=== PATIENT | male | born 1940 | race Hispanic/Latino ===

== ENCOUNTER 2017-03-25 08:21 | Outpatient (CLI) | payer MEDICARE ==
--- NOTE | 2017-03-25 10:10 | PRG ---
DATE OF SERVICE: 03/25/2017 HISTORY: Mr. Alex Lind is a very pleasant 76-year-old gentleman who presents to the [facility] for evaluation of an ulceration of the left anterior lower leg. The patient is presently receivin g treatment with Apligraf. The patient has no complaints today. He denies any fever or chills. PHYSICAL EXAMINATION: VITAL SIGNS: Temperature 98.1, pulse 74, respirations 18, blood pressure 128/35. Accu-Chek 120. EXTREMITIES: The ulceration of the left anterior lower leg measures approximately 3.0 x 2.0 cm. Th e dimensions of the wound at the time of the patient's last visit were approximately 3.0 x 2.2 cm. Granulation tissue is present within the wound margins. No purulent drainage is associated with the wound. No erythema of the skin surrounding the wound is present. No maceration of the skin of the periwound is noted. A dorsalis pedis pulse is easily palpable on the left. No significant edema o f the left foot or lower leg is present on exam today. Apligraf was applied to the wound bed of the ulceration followed by Adaptic touch, a bolster of saline-moistened gauze, dry gauze, Webril, and 3 M Coban 2 layer compression system. Hyperpigmentation of the skin of the left forefoot is present s econdary to hemosiderin deposition. ASSESSMENT AND PLAN: 1. Chronic venous hypertension with ulceration, recurrent. Apligraf was applied to the wound bed o f the ulceration today. I will see Mr. Lind again in 1 week. 2. Lymphedema tarda. 3. Degenerative joint disease. 4. Asbestosis. 5. Congestive heart failure. 6. Anemia. 7. Benign prostatic hypertrophy. 8. Chronic kidney disease stage 3.
[2017-03-25] MEDS ORDERED: Sodium Chloride 0.9% 15 ML NEB ONE (18:52)
== END 2017-03-25 08:22 | disposition home or self-care (01) ==
LOC: WCC 08:21
PROVIDERS: ATTEND Family Medicine
DX: I87.312 Chronic venous hypertension (idiopathic) with ulcer of left lower extremity (principal); I89.0 Lymphedema, not elsewhere classified; M19.90 Unspecified osteoarthritis, unspecified site; I13.0 Hypertensive heart and chronic kidney disease with heart failure and stage 1 through stage 4 chronic kidney disease, or unspecified chronic kidney disease; J61 Pneumoconiosis due to asbestos and other mineral fibers; N18.3 Chronic kidney disease, stage 3 (moderate); D63.1 Anemia in chronic kidney disease; I50.32 Chronic diastolic (congestive) heart failure; N40.0 Benign prostatic hyperplasia without lower urinary tract symptoms
CPT/HCPCS: 15271; 97139; Q4106; A4218

== ENCOUNTER 2017-04-01 09:02 | Outpatient (CLI) | payer MEDICARE ==
--- OUTSIDE RECORDS SUMMARY | 2017-04-01 09:03 | XMS | Clinical Summary ---
:1940 Author Organization [facility] Address [address] [place] [phone] Phone Care Team Providers Name Role Phone , Primary Care Provider Unavailable Allergies Not on File Current Medications Not on file Active Problems Not on file Social History Tobacco Use Types Packs/Day Years Used Date Never Assessed Sex Assigned at Date Recorded Not on file Last Filed Vital Signs Not on file Plan of Treatment Not on file Results Not on filefrom Last 3 Months
--- NOTE | 2017-04-01 10:27 | PRG ---
DATE OF SERVICE: 04/01/2017 HISTORY: Mr. Alex Lind is a very pleasant 76-year-old gentleman who presents to the [facility] for evaluation of an ulceration of the left anterior lower leg. The patient is currently receivin g treatment with Apligraf. The patient has no complaints today. He denies any fever or chills. PHYSICAL EXAMINATION: VITAL SIGNS: Temperature 98.8, pulse 82, respirations 18, blood pressure 113/64. Accu-Chek 93. EXTREMITIES: The ulceration of the left anterior lower leg measures approximately 2.2 x 2.6 cm. Th e dimensions of the wound at the time of the patient's last visit were approximately 3.0 x 2.0 cm. Granulation tissue is present within the wound margins. No purulent drainage is associated with the wound. No erythema of the skin surrounding the wound is present. No maceration of the skin of the periwound is noted. A dorsalis pedis pulse is palpable on the left. No significant edema of the l eft foot or lower leg is present on exam today. Hyperpigmentation of the skin of the left forefoot is present secondary to hemosiderin deposition. ASSESSMENT AND PLAN: 1. Chronic venous hypertension with ulceration, recurrent Adaptic Touch, Webril, and 3M Coban 2 lay er compression system were applied to the ulceration today. I will see Mr. Lind again in one week . At this time, consideration will be given to another placement of Apligraf. 2. Lymphedema tarda. 3. Degenerative joint disease. 4. Asbestosis. 5. Congestive heart failure. 6. Anemia. 7. Benign prostatic hypertrophy. 8. Chronic kidney disease stage 3.
== END 2017-04-01 09:03 | disposition home or self-care (01) ==
LOC: WCC 09:02
PROVIDERS: ATTEND Family Medicine
DX: I87.312 Chronic venous hypertension (idiopathic) with ulcer of left lower extremity (principal); I89.0 Lymphedema, not elsewhere classified; M19.90 Unspecified osteoarthritis, unspecified site; J61 Pneumoconiosis due to asbestos and other mineral fibers; I50.9 Heart failure, unspecified; N40.0 Benign prostatic hyperplasia without lower urinary tract symptoms; N18.3 Chronic kidney disease, stage 3 (moderate); D63.1 Anemia in chronic kidney disease
CPT/HCPCS: 36416; 80048; 80061; 85025; 97602; 36415-59

== ENCOUNTER 2017-04-02 19:17 | Emergency (ER) | payer MEDICARE ==
--- OUTSIDE RECORDS SUMMARY | 2017-04-02 19:19 | XMS | Clinical Summary ---
:1940 Author Organization [facility] Address [address] [place] [phone] Phone Care Team Providers Name Role Phone [...]
== END 2017-04-02 20:51 | disposition home or self-care (01) ==
LOC: ERS 19:17
DX: B37.2 Candidiasis of skin and nail (principal); I11.0 Hypertensive heart disease with heart failure; I50.9 Heart failure, unspecified; F32.9 Major depressive disorder, single episode, unspecified
CPT/HCPCS: 99283

== ENCOUNTER 2017-04-08 09:17 | Outpatient (CLI) | payer MEDICARE ==
--- OUTSIDE RECORDS SUMMARY | 2017-04-08 09:20 | XMS | Clinical Summary ---
:1940 Author Organization [facility] Address [address] [place] [phone] Phone Care Team Providers Name Role Phone [...]
--- NOTE | 2017-04-08 10:28 | PRG ---
DATE OF SERVICE: 04/08/2017 HISTORY: Mr. Alex Lind is a very pleasant 76-year-old gentleman who presents to the [facility] for evaluation of an ulceration of the left anterior lower leg. The patient is presently receivin g treatment with Apligraf. Mr. Lind has no complaints today. He denies any fever or chills. PHYSICAL EXAMINATION: VITAL SIGNS: Temperature 98.1, pulse 67, respirations 18, blood pressure 107/55. Accu-Chek 99. EXTREMITIES: The ulceration of the left anterior lower leg measures approximately 2.5 x 2.3 cm. Th e dimensions of the wound at the time of the patient's last visit were approximately 2.2 x 2.6 cm. Granulation tissue is present within the wound margins. No purulent drainage is associated with the wound. No erythema of the skin surrounding the wound is present. No maceration of the skin of the periwound is noted. A dorsalis pedis pulse is palpable on the left. No significant edema of the l eft foot or lower leg is present on exam today. Hyperpigmentation of the skin of the left forefoot is present secondary to hemosiderin deposition. Apligraf was applied to the wound bed followed by A daptic touch, a bolster of saline-moistened gauze, dry gauze, Webril, and 3M Coban 2 layer compressi on system. ASSESSMENT AND PLAN: 1. Chronic venous hypertension with ulceration. Apligraf was applied to the wound bed of the ulcer ation today. I will see Mr. Lind again in 1 week. 2. Lymphedema tarda. 3. Degenerative joint disease. 4. Asbestosis. 5. Congestive heart failure. 6. Anemia. 7. Benign prostatic hypertrophy. 8. Chronic kidney disease stage 3.
[2017-04-08] MEDS ORDERED: Sodium Chloride 0.9% 15 ML NEB ONE (16:24)
== END 2017-04-08 09:18 | disposition home or self-care (01) ==
LOC: WCC 09:17
PROVIDERS: ATTEND Family Medicine
DX: I87.312 Chronic venous hypertension (idiopathic) with ulcer of left lower extremity (principal); L97.829 Non-pressure chronic ulcer of other part of left lower leg with unspecified severity; I50.9 Heart failure, unspecified; N18.3 Chronic kidney disease, stage 3 (moderate); N40.0 Benign prostatic hyperplasia without lower urinary tract symptoms; M19.90 Unspecified osteoarthritis, unspecified site; I89.0 Lymphedema, not elsewhere classified; D64.9 Anemia, unspecified; J61 Pneumoconiosis due to asbestos and other mineral fibers
CPT/HCPCS: 15271; 82962; 97139; Q4101; 36416; A4218

== ENCOUNTER 2017-04-15 09:12 | Outpatient (CLI) | payer MEDICARE ==
--- NOTE | 2017-04-15 10:31 | PRG ---
DATE OF SERVICE 04/15/2017 HISTORY: Mr. Alex Lind is a very pleasant 76-year-old gentleman who presents to the [facility] for evaluation of an ulceration of the left anterior lower leg. The patient has completed a cours e of treatment with Apligraf. The patient has no complaints today. He denies any fever or chills. PHYSICAL EXAMINATION: VITAL SIGNS: Temperature 98.6, pulse 62, respirations 18, blood pressure 113/57. EXTREMITIES: The ulceration of the left anterior lower leg measures approximately 2.0 x 1.7 cm. Th e dimensions of the wound at the time of the patient's last visit were approximately 2.5 x 2.3 cm. Granulation tissue is present within the wound margins. No purulent drainage is associated with the wound. No erythema of the skin surrounding the wound is present. No maceration of the skin of the periwound is noted. A dorsalis pedis pulse is palpable on the left. No significant edema of the l eft foot or lower leg is present on exam today. Hyperpigmentation of the skin of the left forefoot is present secondary to hemosiderin deposition. Adaptic Touch, Webril, and 3M Coban 2 layer elizabet amanda system were applied to the ulceration of the left anterior lower leg today. ASSESSMENT AND PLAN: 1. Chronic venous hypertension with ulceration. The patient has completed a course of treatment wi Apligraf for the ulceration of the left anterior lower leg. Orders will be transmitted to Home [facility] for dressing changes of Adaptic Touch, Webril, and 3M Coban 2 layer compression system two tahir es per week after cleansing and irrigation. I will see Mr. Lind again in two weeks. 2. Lymphedema tarda. The patient continues to have edema of the right lower extremity despite elev ation and compression. 3. Degenerative joint disease. 4. Asbestosis. 5. Congestive heart failure. 6. Anemia. 7. Benign prostatic hypertrophy. 8. Chronic kidney disease stage 3.
[2017-04-15] MEDS ORDERED: Sodium Chloride 0.9% 15 ML NEB ONE (17:20)
== END 2017-04-15 09:13 | disposition home or self-care (01) ==
LOC: WCC 09:12
PROVIDERS: ATTEND Family Medicine
DX: I87.312 Chronic venous hypertension (idiopathic) with ulcer of left lower extremity (principal); L97.929 Non-pressure chronic ulcer of unspecified part of left lower leg with unspecified severity; I89.0 Lymphedema, not elsewhere classified; M19.90 Unspecified osteoarthritis, unspecified site; J61 Pneumoconiosis due to asbestos and other mineral fibers; I50.9 Heart failure, unspecified; D63.1 Anemia in chronic kidney disease; N40.0 Benign prostatic hyperplasia without lower urinary tract symptoms; N18.3 Chronic kidney disease, stage 3 (moderate)
CPT/HCPCS: 29581; A4218

== ENCOUNTER 2017-04-29 09:33 | Outpatient (CLI) | payer MEDICARE ==
--- NOTE | 2017-04-29 11:47 | PRG ---
DATE OF SERVICE: 04/29/2017 HISTORY: Mr. Alex Lind is a very pleasant 76-year-old gentleman who presents to the [facility] for evaluation of an ulceration of the left anterior lower leg. The patient has completed a cours e of treatment with Apligraf. The patient has no complaints today. He denies any fever or chills. PHYSICAL EXAMINATION: VITAL SIGNS: Temperature 98.0, pulse 74, respirations 19, blood pressure 143/70. EXTREMITIES: The ulceration of the left anterior lower leg measures approximately 2.2 x 2.9 cm. Th e dimensions of the wound at the time of the patient's last visit were approximately 2.0 x 1.7 cm. Granulation tissue is present within the wound margins. No purulent drainage is associated with the wound. No erythema of the skin surrounding the wound is present. No maceration of the skin of the periwound is noted. A dorsalis pedis pulse is palpable on the left. No significant edema of the l eft foot or lower leg is present on exam today hyperpigmentation of the skin of the left forefoot is present secondary to hemosiderin deposition. Polymem Silver, Webril, and the 3M Coban 2 layer comp ression system were applied to the ulceration of the left anterior lower leg today. ASSESSMENT AND PLAN: 1. Chronic venous hypertension with ulceration. The patient has completed a course of treatment wi Apligraf for the ulceration of the left anterior lower leg. Orders will be transmitted to Home [facility] for dressing changes of Polymem Silver, Webril, and the 3M Coban 2 layer compression system tw o times per week after cleansing and irrigation. I will see Mr. Lind again in 2 weeks. 2. Lymphedema tarda. The patient continues to have edema of the right lower extremity despite elev ation and compression. 3. Degenerative joint disease. 4. Asbestosis. 5. Congestive heart failure. 6. Anemia. 7. Benign prostatic hypertrophy. 8. Chronic kidney disease stage 3.
[2017-04-29] MEDS ORDERED: Sodium Chloride 0.9% 15 ML NEB ONE (17:31)
--- OUTSIDE RECORDS SUMMARY | 2017-04-30 02:38 | XMS | Clinical Summary ---
:1940 Author Organization [facility] Address [address] [place] [phone] Phone Care Team Providers Name Role Phone [...]
== END 2017-04-29 09:34 | disposition home or self-care (01) ==
LOC: WCC 09:33
PROVIDERS: ATTEND Family Medicine
DX: I87.312 Chronic venous hypertension (idiopathic) with ulcer of left lower extremity (principal); I89.0 Lymphedema, not elsewhere classified; M19.90 Unspecified osteoarthritis, unspecified site; J61 Pneumoconiosis due to asbestos and other mineral fibers; N18.3 Chronic kidney disease, stage 3 (moderate); D63.1 Anemia in chronic kidney disease; N40.0 Benign prostatic hyperplasia without lower urinary tract symptoms; I50.9 Heart failure, unspecified
CPT/HCPCS: 29581; A4218

== ENCOUNTER 2017-06-07 08:08 | Outpatient (CLI) | payer MEDICARE ==
--- NOTE | 2017-06-07 10:07 | PRG ---
DATE OF SERVICE: 06/07/2017 HISTORY: Mr. Alex Lind is a very pleasant 76-year-old gentleman who [facility] evaluation of an ulceration of the left anterior lower leg. The patient has completed a course of treatment with Apligraf. The patient has no complaints today. He denies any fever or chills. He states that he is using his pneumatic pump for lymphedema of the right lower extremity. PHYSICAL EXAMINATION: VITAL SIGNS: Temperature 98.0, pulse 70, respirations 18, blood pressure 100/52. EXTREMITIES: The ulceration of the left anterior lower leg measures approximately 3.0 x 3.5 cm. The dimensions of the wound at the time of the patient's visit on 05/13/2017 were approximately 2.0 x 1. 8 cm. Granulation tissue is present within the wound margins. No purulent drainage is associated wi th the wound. No erythema of the skin surrounding the wound is present. No maceration of the skin o f the periwound is noted. A dorsalis pedis pulse is palpable on the left. No significant edema of t he left foot or lower leg is present on exam today. Hyperpigmentation of the skin of the left forefo ot is present secondary to hemosiderin deposition. Adaptic, Webril, and 3M Coban 2 layer compression system were applied to the ulceration of the left anterior lower leg today. ASSESSMENT AND PLAN: 1. Chronic venous hypertension with ulceration. The patient has completed a course of treatment wit h Apligraf for the ulceration of the left anterior lower leg. Orders will be transmitted to Home [facility] for the dressings applied in clinic today to be left intact until the patient's visit in 1 week. The patient understands and is in agreement with the preceding treatment plan. He states he will re turn to clinic one week from today. 2. Lymphedema tarda. The patient is utilizing a pneumatic pump for his right lower extremity. 3. Degenerative joint disease. 4. Asbestosis. 5. Congestive heart failure. 6. Anemia. 7. Benign prostatic hypertrophy. 8. Chronic kidney disease stage 3.
[2017-06-07] MEDS ORDERED: Sodium Chloride 0.9% 15 ML NEB ONE (17:17)
== END 2017-06-07 08:09 | disposition home or self-care (01) ==
LOC: WCC 08:08
PROVIDERS: ATTEND Family Medicine
DX: I87.312 Chronic venous hypertension (idiopathic) with ulcer of left lower extremity (principal); L97.929 Non-pressure chronic ulcer of unspecified part of left lower leg with unspecified severity; I89.0 Lymphedema, not elsewhere classified; M19.90 Unspecified osteoarthritis, unspecified site; J61 Pneumoconiosis due to asbestos and other mineral fibers; I50.9 Heart failure, unspecified; N40.0 Benign prostatic hyperplasia without lower urinary tract symptoms; N18.3 Chronic kidney disease, stage 3 (moderate); D63.1 Anemia in chronic kidney disease
CPT/HCPCS: 29581; A4218

== ENCOUNTER 2017-06-16 08:59 | Outpatient (CLI) | payer MEDICARE ==
--- NOTE | 2017-06-16 10:56 | PRG ---
DATE OF SERVICE: 06/16/2017 HISTORY: Mr. Alex Lind is a very pleasant 76-year-old gentleman who presents [facility] the [facility] for evaluation of an ulceration of the left anterior lower leg. The patient has completed a course of treatment with Apligraf. Mr. Lind has no complaints today. He denies any fever or chills. He previously stated that he is utilizing his pneumatic pump for lymphedema of the right lower extremity . PHYSICAL EXAMINATION: VITAL SIGNS: Temperature 98.1, pulse 77, respirations 17, blood pressure 99/49. EXTREMITIES: The ulceration of the left anterior lower leg measures approximately 4.5 x 2.9 cm. The dimensions of the wound at the time of the patient's visit on 06/07/2017 were approximately 3.0 x 3. 5 cm. Granulation tissue is present within the wound margins. No purulent drainage is associated wi th the wound. No erythema of the skin surrounding the wound is present. No maceration of the skin o f the periwound is noted. No significant edema of the left foot or lower leg is present on exam toda y. Hyperpigmentation of the skin of the left forefoot is present secondary to hemosiderin deposition . Adaptic, Webril, and the 3M Coban 2 layer compression system were applied to the ulceration of the left anterior lower leg today. ASSESSMENT AND PLAN: 1. Chronic venous hypertension with ulceration. The patient has completed a course of treatment wit h Apligraf for the ulceration of the left anterior lower leg. [facility] applied in clinic today to be left intact until the patient's visit in 1 week. The patient understands and is in agreement with the preceding treatment plan. The patient re ports slippage of the dressings applied by [facility]. 2. Lymphedema tarda. The patient is utilizing a pneumatic pump for his right lower extremity. 3. Degenerative joint disease. 4. Asbestosis. 5. Congestive heart failure. 6. Anemia. 7. Benign prostatic hypertrophy. 8. Chronic kidney disease stage 3.
== END 2017-06-16 09:00 | disposition home or self-care (01) ==
LOC: WCC 08:59
PROVIDERS: ATTEND Family Medicine
DX: I87.312 Chronic venous hypertension (idiopathic) with ulcer of left lower extremity (principal); L97.529 Non-pressure chronic ulcer of other part of left foot with unspecified severity; I89.0 Lymphedema, not elsewhere classified; M19.90 Unspecified osteoarthritis, unspecified site; J61 Pneumoconiosis due to asbestos and other mineral fibers; I50.9 Heart failure, unspecified; N40.0 Benign prostatic hyperplasia without lower urinary tract symptoms; N18.3 Chronic kidney disease, stage 3 (moderate); D63.1 Anemia in chronic kidney disease
CPT/HCPCS: 29581

== ENCOUNTER 2017-06-23 08:37 | Outpatient (CLI) | payer MEDICARE ==
--- NOTE | 2017-06-23 10:57 | PRG ---
DATE OF SERVICE: 06/23/2017 HISTORY: Mr. Alex Lind is a very pleasant 76-year-old gentleman, who presents to the [facility] for evaluation of an ulceration of the left anterior lower leg. The patient has completed a course of treatment with Apligraf. The patient has no complaints today. He denies any fever or chills. A gain today, he states that he is utilizing his pneumatic pump for lymphedema of the right lower extre mity. PHYSICAL EXAMINATION: VITAL SIGNS: Temperature 97.6, pulse 65, respirations 17, and blood pressure 92/50. EXTREMITIES: The ulceration of the left anterior lower leg measures approximately 3.3 x 4.4 cm. The dimensions of the wound at the time of the patient's last visit were approximately 4.5 x 2.9 cm. Gr anulation tissue is present within the wound margins. A sample of granulation tissue was excised wit h the use of scissors and sent for aerobic, anaerobic, and fungal cultures. No purulent drainage is associated with the wound. No erythema of the skin surrounding the wound is present. No maceration of the skin of the periwound is noted. No significant edema of the left foot or lower leg is present on exam today. Hyperpigmentation of the skin of the left forefoot is present secondary to hemosider in deposition. ASSESSMENT AND PLAN: 1. Chronic venous hypertension with ulceration. The patient has completed a course of treatment wit h Apligraf for the ulceration of the left anterior lower leg. Orders will be transmitted again to [facility] for the dressings applied in clinic today to be left intact until the patient's visit in 1 week. Xeroform gauze, Webril, and 3M Coban 2 layer compression system were applied to the ulceration of the left anterior lower leg today. The patient is to receive dressing changes of Xeroform gauze, Webril, and 3M Coban 2 layer compression system on a weekly basis here in the [facility] Center for the n ext 2 weeks. I will see Mr. Lind again in 3 weeks. Antibiotic therapy will be initiated based upo n the results of the tissue cultures obtained today. The patient understands and is in agreement wit h the preceding treatment plan. 2. Lymphedema tarda. The patient is utilizing a pneumatic pump for his right lower extremity. 3. Degenerative joint disease. 4. Asbestosis. 5. Congestive heart failure. 6. Anemia. 7. Benign prostatic hypertrophy. 8. Chronic kidney disease, stage 3.
[2017-06-23] MEDS ORDERED: Sodium Chloride 0.9% 15 ML NEB ONE (21:22)
[2017-06-23] MEDS ORDERED: Lidocaine 2% Jelly 5 ML TUBE ONE (21:22)
== END 2017-06-23 08:38 | disposition home or self-care (01) ==
LOC: WCC 08:37
PROVIDERS: ATTEND Family Medicine
DX: I87.312 Chronic venous hypertension (idiopathic) with ulcer of left lower extremity (principal); L97.929 Non-pressure chronic ulcer of unspecified part of left lower leg with unspecified severity; I89.0 Lymphedema, not elsewhere classified; M19.90 Unspecified osteoarthritis, unspecified site; J61 Pneumoconiosis due to asbestos and other mineral fibers; I50.9 Heart failure, unspecified; N40.0 Benign prostatic hyperplasia without lower urinary tract symptoms; N18.3 Chronic kidney disease, stage 3 (moderate); D63.1 Anemia in chronic kidney disease
CPT/HCPCS: 87070; 87077; 87102; 87186; 87205; 87206; A4218

== ENCOUNTER 2017-07-01 10:48 | Outpatient (CLI) | payer MEDICARE ==
[2017-07-01] MEDS ORDERED: Sodium Chloride 0.9% 15 ML NEB ONE (13:36)
== END 2017-07-01 10:49 | disposition home or self-care (01) ==
LOC: WCC 10:48
PROVIDERS: ATTEND Family Medicine
DX: I87.312 Chronic venous hypertension (idiopathic) with ulcer of left lower extremity (principal)
CPT/HCPCS: 29581; A4218

== ENCOUNTER 2017-07-06 10:26 | Outpatient (CLI) | payer MEDICARE | END 2017-07-06 10:27 | disposition home or self-care (01) | LOC: WCC 10:26 | PROVIDERS: ATTEND Family Medicine | DX: I87.312 Chronic venous hypertension (idiopathic) with ulcer of left lower extremity (principal); L97.929 Non-pressure chronic ulcer of unspecified part of left lower leg with unspecified severity | CPT/HCPCS: 29581 ==

== ENCOUNTER 2017-07-14 08:33 | Outpatient (CLI) | payer MEDICARE ==
--- NOTE | 2017-07-14 10:11 | PRG ---
DATE OF SERVICE: 07/14/2017 HISTORY: Mr. Alex Lind is a very pleasant 76-year-old gentleman who presents to the [facility] for evaluation of an ulceration of the left anterior lower leg. The patient has completed a course of treatment with Apligraf. The patient has no complaints today. He denies any fever or chills. PHYSICAL EXAMINATION: VITAL SIGNS: Temperature 98.2, pulse 91, respirations 18, blood pressure 130/61. EXTREMITIES: The ulceration of the left anterior lower leg measures approximately 3.2 x 3.4 cm. The dimensions of the wound at the time of the patient's visit on 06/23/2017 were approximately 3.3 x 4. 4 cm. Granulation tissue is present within the wound margins. No purulent drainage is associated wi th the wound. No erythema of the skin surrounding the wound is present. No maceration of the skin o f the periwound is noted. A dorsalis pedis pulse is easily palpable on the left. No significant davian ma of the left foot or lower leg is present on exam today. Hyperpigmentation of the skin of the left forefoot is present secondary to hemosiderin deposition. ASSESSMENT AND PLAN: 1. Chronic venous hypertension with ulceration. The patient has completed a course of treatment wit h Apligraf for the ulceration of the left anterior lower leg. Orders will be transmitted to Home [facility] for dressing changes of Xeroform gauze, Webril, and 3M Coban 2 layer compression system 1-2 times per week after cleansing and irrigation for the ulceration of the left anterior lower leg. I will s ee Ms. Lind again in 3 weeks. The patient understands and is in agreement with the preceding treat ment plan. 2. Lymphedema tarda. The patient has been provided with a pneumatic pump for in-home treatment of l ymphedema. 3. Degenerative joint disease. 4. Asbestosis. 5. Congestive heart failure. 6. Anemia. 7. Benign prostatic hypertrophy. 8. Chronic kidney disease stage 3.
[2017-07-15] MEDS ORDERED: Sodium Chloride 0.9% 15 ML NEB ONE (09:00)
== END 2017-07-14 08:34 | disposition home or self-care (01) ==
LOC: WCC 08:33
PROVIDERS: ATTEND Family Medicine
DX: I87.312 Chronic venous hypertension (idiopathic) with ulcer of left lower extremity (principal); I12.9 Hypertensive chronic kidney disease with stage 1 through stage 4 chronic kidney disease, or unspecified chronic kidney disease; N18.3 Chronic kidney disease, stage 3 (moderate); D63.1 Anemia in chronic kidney disease; M19.90 Unspecified osteoarthritis, unspecified site; I89.0 Lymphedema, not elsewhere classified; J61 Pneumoconiosis due to asbestos and other mineral fibers; I50.9 Heart failure, unspecified; N40.0 Benign prostatic hyperplasia without lower urinary tract symptoms
CPT/HCPCS: 29581

== ENCOUNTER 2017-08-04 09:22 | Outpatient (CLI) | payer MEDICARE ==
--- NOTE | 2017-08-04 10:23 | PRG ---
DATE OF SERVICE: 08/04/2017 HISTORY: Mr. Alex Lind is a very pleasant 76-year-old gentleman who presents to the [facility] for evaluation of an ulceration of the left anterior lower leg. The patient has completed a course of treatment with Apligraf. Mr. Lind has no complaints today. He denies any fever or chills. PHYSICAL EXAMINATION: VITAL SIGNS: Temperature 97.8, pulse 77, respirations 19, blood pressure 141/63. EXTREMITIES: The ulceration of the left anterior lower leg measures approximately 2.9 x 1.6 cm. The dimensions of the wound at the time of the patient's visit on 07/14/2017 were approximately 3.2 x 3. 4 cm. Granulation tissue is present within the wound margins. No purulent drainage is associated wi th the wound. No erythema of the skin surrounding the wound is present. No maceration of the skin o f the periwound is noted. A dorsalis pedis pulse is easily palpable on the left. No significant davian ma of the left foot or lower leg is present on exam today. ASSESSMENT AND PLAN: 1. Chronic venous hypertension with ulceration. The patient has completed a course of treatment wit h Apligraf for the ulceration of the left anterior lower leg. Orders will be transmitted to Home [facility] for dressing changes of Xeroform gauze, Webril, and 3M Coban 2 layer compression system 1-2 times per week after cleansing and irrigation for the ulceration of the left anterior lower leg. I will s ee Mr. Lind again in 3 weeks. The patient understands and is in agreement with the preceding treat ment plan. 2. Lymphedema tarda. The patient was previously provided with a pneumatic pump for in-home treatmen t of lymphedema. 3. History of syncopal episode. The patient has been recommended to report to the Emergency Departm ent following his visit today for further workup, the patient declines further workup in the Emergenc y Department. Today, he states that he has a followup appointment with Dr. Bowden in regard to his s yncopal episode. 4. Degenerative joint disease. 5. Asbestosis. 6. Congestive heart failure. 7. Anemia. 8. Benign prostatic hypertrophy. 9. Chronic kidney disease stage 3.
== END 2017-08-04 09:23 | disposition home or self-care (01) ==
LOC: WCC 09:22
PROVIDERS: ATTEND Family Medicine
DX: I87.312 Chronic venous hypertension (idiopathic) with ulcer of left lower extremity (principal); L97.929 Non-pressure chronic ulcer of unspecified part of left lower leg with unspecified severity; I89.0 Lymphedema, not elsewhere classified; M19.90 Unspecified osteoarthritis, unspecified site; J61 Pneumoconiosis due to asbestos and other mineral fibers; I50.9 Heart failure, unspecified; N18.3 Chronic kidney disease, stage 3 (moderate); D63.1 Anemia in chronic kidney disease
CPT/HCPCS: 97602

== ENCOUNTER 2017-08-25 09:19 | Outpatient (CLI) | payer MEDICARE ==
--- NOTE | 2017-08-25 18:34 | PRG ---
DATE OF SERVICE: 08/25/2017 HISTORY: Mr. Alex Lind is a very pleasant 76-year-old gentleman, who presents to the [facility] for evaluation of an ulceration of the left anterior lower leg. The patient has completed a course of treatment with Apligraf. The patient has no other complaints today. He denies any fever or chil ls. PHYSICAL EXAMINATION: VITAL SIGNS: Temperature 98.1, pulse 85, respirations 18, and blood pressure 121/59. EXTREMITIES: The ulceration of the left anterior lower leg measures approximately 4.7 x 2.5 cm. The dimensions of the wound at the time of the patient's visit on 08/04/2017 were approximately 2.9 x 1. 6 cm. Granulation tissue is present within the wound margins. No purulent drainage is associated wi th the wound. No erythema of the skin surrounding the wound is present. No maceration of the skin o f the periwound is noted. No significant edema of the left foot or lower leg is present on exam tojoleen thompson. ASSESSMENT AND PLAN: 1. Chronic venous hypertension with ulceration. The patient has completed a course of treatment wit h Apligraf for the ulceration of the left anterior lower leg. Because the ulceration has increased i n size and because of the chronic nature of the wound, I have recommended punch biopsy to Mr. Lind to look for findings suggestive of fungus and/or malignancy. The patient understands and is in agree ment with the preceding treatment plan. The ulceration was prepped with alcohol followed by Betadine injectable, lidocaine was utilized to infiltrate the periwound and wound bed of the ulceration with a small gauge needle with the use of a punch for specimens were obtained. Three from the periwound a nd one from the wound bed. One specimen from the periwound was sent for aerobic and anaerobic cultur es. 2. Microbiology: Two specimens from the periwound and one from the center of the wound bed were sen t to pathology in formalin. Hemostasis was achieved with the use of Surgicel and the ulceration was dressed with Surgicel and the 3M Coban 2 layer compression system. 3. Presyncopal episode. At the completion of the procedure, the patient reported feeling dizzy, chrissy meeks was called, and the patient was transported to the Emergency Department for further evaluatio n and treatment. The patient previously stated that he had an appointment with Dr. Bowden for evalua tion after a syncopal episode, which he had reported at the time of his last visit to the [facility]. 4. Lymphedema tarda. The patient was previously provided with pneumatic pump for in-home treatment of lymphedema. 5. Degenerative joint disease. 6. Asbestosis. 7. Congestive heart failure. 8. Anemia. 9. Benign prostatic hypertrophy. 10. Chronic kidney disease, stage 3.
== END 2017-08-25 09:20 | disposition home or self-care (01) ==
LOC: WCC 09:19
PROVIDERS: ATTEND Family Medicine
DX: I87.312 Chronic venous hypertension (idiopathic) with ulcer of left lower extremity (principal); L97.929 Non-pressure chronic ulcer of unspecified part of left lower leg with unspecified severity; I89.0 Lymphedema, not elsewhere classified; M19.90 Unspecified osteoarthritis, unspecified site; J61 Pneumoconiosis due to asbestos and other mineral fibers; I50.9 Heart failure, unspecified; N40.0 Benign prostatic hyperplasia without lower urinary tract symptoms; N18.3 Chronic kidney disease, stage 3 (moderate); D63.1 Anemia in chronic kidney disease
CPT/HCPCS: 36416; 87070; 87077; 87186; 87205; 88305; 88312

== ENCOUNTER 2017-08-25 10:57 | Emergency (ER) | payer MEDICARE ==
[2017-08-25] MEDS ORDERED: Ondansetron HCl/PF 4 MG/2 ML Vial ONE (11:06)
[2017-08-25 11:48] LABS: INR-International Normal Ratio 1.1; Prothrombin Time 14.8 SEC (12.0-14.7)
[2017-08-25 11:55] LABS: Band 7 % (5-11); Eosinophils 2 % (0-10); Hemoglobin 10.8 g/dL (14.0-18.0); Lymphocytes 40 % (21-51); MDiff Complete? YES; Mean Corpuscular HGB CONC 32.9 g/dL (32.0-36.0); Mean Corpuscular Hemoglobin 35.3 pg (27.0-31.0); Mean Platelet Volume 9.1 fL (7.4-10.4); Monocytes 10 % (0-10); Neutrophil 40 % (42-75); Platelet Count 182 thou/uL (130-400); RBC Morphology Normal; Red Blood Cell (RBC) Count 3.05 mill/uL (4.70-6.10); White Blood Cell (WBC) Count 4.5 thou/uL (4.8-10.8)
--- NOTE | 2017-08-25 12:07 | CT ---
CT BRAIN WITHOUT COTNRAST: HISTORY: Syncope. FINDINGS: No evidence of acute infarct, hemorrhage, midline shift, or abnormal extraaxial fluid collections are seen. The ventricular size is appropriate and the basilar cisterns patent. The bony calvarium is i ntact. There is opacification of the right mastoid air cells. IMPRESSION: No CT evidence of acute intracranial process. POS: [facility]
[2017-08-25 12:12] LABS: ALT (SGPT) Less than 7 U/L (8-55); AST (SGOT) 14 U/L (5-34); Albumin 3.7 g/dL (3.4-4.8); Alkaline Phosphatase 86 U/L (40-150); Anion Gap 12 mmol/L (10-20); BUN (Urea Nitrogen) 16 mg/dL (8.4-25.7); Bilirubin, Total 0.7 mg/dL (0.2-1.2); CKMB 1.1 ng/mL (0-6.6); Calc. Creatinine Clearance 0 mL/min (70-130); Calcium 8.7 mg/dL (7.8-10.44); Carbon Dioxide 25 mmol/L (23-31); Chloride 104 mmol/L (98-107); Estimated GFR-MDRD 51; Globulin 5.6 g/dL (2.4-3.5); Glucose 106 mg/dL (83-110); Magnesium 2.4 mg/dL (1.6-2.6); Protein, Total 9.3 g/dL (5.8-8.1); Sodium 136 mmol/L (136-145); Troponin I Less than 0.010 ng/mL (< 0.028)
--- NOTE | 2017-08-25 12:50 | RAD ---
CHEST ONE VIEW: HISTORY: A 76-year-old male with a history of a syncopal episode. COMPARISON: 11/10/2016 FINDINGS: Monitor leads overly the chest. Heart size is within normal limits. There is atherosclerosis of the aorta. No confluent pneumonia, overt edema, or pleural effusion. IMPRESSION: Atherosclerosis without acute intrathoracic disease. Stable from prior study. POS: [facility]
[2017-08-25] MEDS ORDERED: Ketorolac Tromethamine 30 MG/ML VIAL ONE (16:15)
== END 2017-08-25 16:56 | disposition home or self-care (01) ==
LOC: ERS 10:57
DX: S81.802A Unspecified open wound, left lower leg, initial encounter (principal); R55 Syncope and collapse; I11.0 Hypertensive heart disease with heart failure; I50.9 Heart failure, unspecified; M19.90 Unspecified osteoarthritis, unspecified site; F32.9 Major depressive disorder, single episode, unspecified; X58.XXXA Exposure to other specified factors, initial encounter
CPT/HCPCS: 70450; 71045; 80053; 82553; 83735; 83880; 84484; 85025; 85610; 93005; 96361; 96374; 96375; J1885; J2405

== ENCOUNTER 2017-09-01 09:34 | Outpatient (CLI) | payer MEDICARE ==
--- NOTE | 2017-09-01 11:16 | PRG ---
DATE OF SERVICE: 09/01/2017 HISTORY: Mr. Alex Lind is a very pleasant 76-year-old gentleman who presents to the [facility] for evaluation of an ulceration of the left anterior lateral lower leg. The patient has completed a course of treatment with Apligraf. Biopsy of the ulceration obtained on 08/25/2017 returned negativ e for fungi granuloma or neoplasia. Histology was consistent with a skin ulcer compatible with stasi s dermatitis. Since the patient's last visit, Mr. Lind has been receiving dressing changes of Xero form gauze with the assistance of Home Health. The patient has no complaints today. He denies any f ever or chills. PHYSICAL EXAMINATION: VITAL SIGNS: Temperature 97.5, pulse 70, respirations 19, blood pressure 108/54. EXTREMITIES: The ulceration of the left anterior lower leg measures approximately 4.7 x 3.6 cm. The dimensions of the wound at the time of the patient's visit on 08/25/2017 were approximately 4.7 x 2. 5 cm. Granulation tissue is present within the wound margins. No purulent drainage is associated wi th the wound. No cellulitis of the left lower leg is appreciated. No maceration of the skin of the periwound is noted. A dorsalis pedis pulse is palpable on the left. No significant edema of the lef t foot or lower leg is present on exam today. MatriStem sheet 3 x 7 cm was applied to the ulceration followed by a bolster of saline-moistened gauze, three 4 x 4's, Webril, and 3M Coban 2 layer elizabet amanda system. ASSESSMENT AND PLAN: 1. Chronic venous hypertension with ulceration. MatriStem sheet was applied to the ulceration today . Orders will be transmitted to Home Health for dressing changes of Adaptic, Webril, and 3M Coban 2 layer compression system on a weekly basis for the next 2 weeks. I will see Mr. Lind again in 3 we eks. The patient understands and is in agreement with the preceding treatment plan. 2. Lymphedema tarda. The patient was previously provided with a pneumatic pump for in-home treatmen t of lymphedema. The patient states he is utilizing his pneumatic pump for lymphedema of the right l ower extremity. 3. Degenerative joint disease. 4. Asbestosis. 5. Congestive heart failure. 6. Anemia. 7. Benign prostatic hypertrophy. 8. Chronic kidney disease stage 3.
[2017-09-01] MEDS ORDERED: Sodium Chloride 0.9% 15 ML NEB ONE (14:29)
== END 2017-09-01 09:35 | disposition home or self-care (01) ==
LOC: WCC 09:34
PROVIDERS: ATTEND Family Medicine
DX: I87.312 Chronic venous hypertension (idiopathic) with ulcer of left lower extremity (principal); I50.9 Heart failure, unspecified; N18.3 Chronic kidney disease, stage 3 (moderate); D63.1 Anemia in chronic kidney disease; I89.0 Lymphedema, not elsewhere classified; M19.90 Unspecified osteoarthritis, unspecified site; N40.0 Benign prostatic hyperplasia without lower urinary tract symptoms; J61 Pneumoconiosis due to asbestos and other mineral fibers
CPT/HCPCS: 97139; C5271; Q4166; A4218

== ENCOUNTER 2017-09-22 09:41 | Outpatient (CLI) | payer MEDICARE ==
--- NOTE | 2017-09-22 10:55 | PRG ---
DATE OF SERVICE: 09/22/2017 HISTORY: Mr. Alex Lind is a very pleasant 76-year-old gentleman who presents to the [facility]ound Center for evaluation of an ulceration of the left anterolateral lower leg. The patient has completed a co urse of treatment with Apligraf. Biopsy of the ulceration obtained on 08/25/2017 returned negative f or fungus granuloma or neoplasia. Histology was consistent with a skin ulcer compatible with stasis dermatitis. MatriStem sheet was applied to the ulceration at the time of the patient's visit on 08/06. The patient denies any fever or chills. PHYSICAL EXAMINATION: VITAL SIGNS: Temperature 97.6, pulse 78, respirations 19, blood pressure 129/72. EXTREMITIES: Two ulcerations of the left anterolateral lower leg are now present which measures appr oximately 4.5 x 6.9 cm and 2.7 x 1.4 cm. Granulation tissue is present within the margins of each wo und. No purulent drainage is associated with either wound. No cellulitis of the left lower leg is a ppreciated. No maceration of the skin of the periwound of either wound is noted. A dorsalis pedis p ulse is palpable on the left. No significant edema of the left foot or lower leg is present on exam today. ASSESSMENT AND PLAN: 1. Chronic venous hypertension with ulceration. Dressing changes of Xeroform gauze, ABD, Webril, an d 3M Coban 2 layer compression system are to be performed 1-2 times per week after cleansing and irri gation with the assistance of Home Health. I will see Mr. Lind again in two weeks. If the ulcerat ions fail to decrease in their dimensions with the preceding dressing changes, consideration will be given to a trial of Hydrofera Blue. 2. Lymphedema. The patient states that he continues to utilize his pneumatic pump for lymphedema of the right lower extremity. 3. Degenerative joint disease. 4. Asbestosis. 5. Congestive heart failure. 6. Anemia. 7. Benign prostatic hypertrophy. 8. Chronic kidney disease.
[2017-09-24] MEDS ORDERED: Sodium Chloride 0.9% 15 ML NEB ONE (12:30)
== END 2017-09-22 09:42 | disposition home or self-care (01) ==
LOC: WCC 09:41
PROVIDERS: ATTEND Family Medicine
DX: I87.312 Chronic venous hypertension (idiopathic) with ulcer of left lower extremity (principal); I89.0 Lymphedema, not elsewhere classified; I50.9 Heart failure, unspecified; N18.9 Chronic kidney disease, unspecified; D63.1 Anemia in chronic kidney disease; N40.0 Benign prostatic hyperplasia without lower urinary tract symptoms; J61 Pneumoconiosis due to asbestos and other mineral fibers; M19.90 Unspecified osteoarthritis, unspecified site
CPT/HCPCS: 29581

== ENCOUNTER 2017-10-27 09:09 | Outpatient (CLI) | payer MEDICARE ==
--- NOTE | 2017-10-27 10:26 | PRG ---
DATE OF SERVICE: 10/27/2017 HISTORY: Mr. Alex Lind is a very pleasant 77-year-old who presents to the [facility] Center for evalu ation of an ulceration of the left anterior lateral lower leg. The patient completed a course of azam atment with Apligraf. Biopsy of the ulceration obtained on 08/25/2017 returned negative for fungus g ranuloma or neoplasia. Histology was consistent with a skin ulcer compatible with stasis dermatitis. MatriStem sheet was applied to the ulceration at the time of the patient's visit on 09/01/2017. Mr Jose Lind states he has a new home health agency. The patient has no other complaints today. He mariano es any fever or chills. He states he has been utilizing his pneumatic pump for his right lower extre mity. PHYSICAL EXAMINATION: VITAL SIGNS: Temperature 97.5, pulse 72, respirations 15, and blood pressure 111/56. EXTREMITIES: A large ulceration of the left anterior lateral lower leg is now present which measures approximately 5.4 x 8.5 cm. Granulation tissue is present within the wound margins. No purulent dr karimi is associated with the wound. No cellulitis of the left lower leg is appreciated. No macerat ion of the skin of the periwound is noted. Edema of the left lower leg is present on exam today. ASSESSMENT AND PLAN: 1. Chronic venous hypertension with ulceration. Dressing changes of Xeroform gauze, ABD, Kerlix, an d an Anup bandage are to be performed 3 times per week after cleansing and irrigation with the assista nce of Home Health. I have also asked the patient to begin utilizing his pneumatic pump for swelling of his left lower extremity. Arrangements will also be made for the patient to be seen in consultat ion by Cardiology for evaluation for venous ablation on the left. I will see Mr. Lind again after his evaluation and any necessary treatment by Cardiology is complete. The patient understands and is in agreement with the preceding treatment plan. 2. Lymphedema. The patient is to begin utilizing his pneumatic pump for the left lower extremity fo r 45 minutes each day. 3. Degenerative joint disease. 4. Asbestosis. 5. Congestive heart failure. 6. Anemia. 7. Benign prostatic hypertrophy. 8. Chronic kidney disease.
[2017-10-27] MEDS ORDERED: Lidocaine 2% Jelly 5 ML TUBE ONE (11:00)
[2017-10-27] MEDS ORDERED: Sodium Chloride 0.9% 15 ML NEB ONE (11:00)
== END 2017-10-27 09:10 | disposition home or self-care (01) ==
LOC: WCC 09:09
PROVIDERS: ATTEND Family Medicine
DX: I87.312 Chronic venous hypertension (idiopathic) with ulcer of left lower extremity (principal); L97.829 Non-pressure chronic ulcer of other part of left lower leg with unspecified severity; I89.0 Lymphedema, not elsewhere classified; M19.90 Unspecified osteoarthritis, unspecified site; J61 Pneumoconiosis due to asbestos and other mineral fibers; I50.9 Heart failure, unspecified; D64.9 Anemia, unspecified; N40.0 Benign prostatic hyperplasia without lower urinary tract symptoms; N18.9 Chronic kidney disease, unspecified

== ENCOUNTER 2017-11-15 09:13 | Outpatient (CLI) | payer MEDICARE ==
--- NOTE | 2017-11-15 11:15 | PRG ---
DATE OF SERVICE: 11/15/2017 HISTORY: Mr. Alex Lind is a very pleasant 77-year-old gentleman who presents to the [facility] Center for evaluation of an ulceration of the left anterior lateral lower leg. The patient completed a cou rse of treatment with Apligraf. Biopsy of the ulceration obtained on 08/25/2017 returned negative fo r fungus granuloma or neoplasia. Histology was consistent with a skin ulcer compatible with stasis d ermatitis. MatriStem sheet was applied to the ulceration at the time of the patient's visit on 09/01. The patient states he has not been receiving his dressing changes with the assistance of Home Health. The patient has no other complaints today. He denies any fever or chills. PHYSICAL EXAMINATION: VITAL SIGNS: Temperature 97.5, pulse 57, respirations 19, blood pressure 153/69. EXTREMITIES: A large ulceration of the left anterolateral lower leg is present, which measures appro ximately 11.4 x 5.0 cm. Granulation tissue is present within the wound margins. Discoloration of th e wound bed is also present on exam today. This discoloration is green/black. No purulent drainage is associated with the wound. No cellulitis of the left lower leg is appreciated. No maceration of the skin of the periwound is noted. Edema of the left lower leg is present on exam today. A sample of granulation tissue present within the wound margins was excised with the use of scissors and sent to microbiology for aerobic, anaerobic, and fungal cultures. ASSESSMENT AND PLAN: 1. Chronic venous hypertension with ulceration. Dressing changes of Medihoney, 4 x 4s, Kerlix, and an Anup bandage will be initiated today. These dressing changes are to be performed 3 times per week after cleansing and irrigation with the assistance of Home Health. I have also asked the patient to utilize his pneumatic pump on the left for 45 minutes each day. The patient will also be notified as to the date and time of his appointment with Cardiology for evaluation for venous ablation on the . I will see Mr. Lind again after his evaluation and any necessary treatment by Cardiology is co mplete. Antibiotic therapy will also be initiated based upon the results of the tissue cultures obta phuong today. The patient understands and is in agreement with the preceding treatment plan. 2. Lymphedema. The patient is to utilize his pneumatic pump on the left for 45 minutes each day. 3. Degenerative joint disease. 4. Asbestosis. 5. Congestive heart failure. 6. Anemia. 7. Benign prostatic hypertrophy. 8. Chronic kidney disease.
== END 2017-11-15 09:14 | disposition home or self-care (01) ==
LOC: WCC 09:13
PROVIDERS: ATTEND Family Medicine
DX: I87.312 Chronic venous hypertension (idiopathic) with ulcer of left lower extremity (principal); R59.0 Localized enlarged lymph nodes; M19.90 Unspecified osteoarthritis, unspecified site; N18.9 Chronic kidney disease, unspecified; D63.1 Anemia in chronic kidney disease; I50.9 Heart failure, unspecified; N40.0 Benign prostatic hyperplasia without lower urinary tract symptoms; J61 Pneumoconiosis due to asbestos and other mineral fibers
CPT/HCPCS: 87070; 87077; 87102; 87186; 87205; 87206

== ENCOUNTER 2017-12-20 07:56 | Outpatient (CLI) | payer MEDICARE ==
--- NOTE | 2017-12-20 09:21 | PRG ---
DATE OF SERVICE: 12/20/2017 HISTORY: Mr. Alex Lind is a very pleasant 77-year-old gentleman who presents to the [facility] Center for evaluation of an ulceration of the left anterior lateral lower leg. The patient completed a cou rse of treatment with Apligraf. Biopsy of the ulceration obtained on 08/25/2017 returned negative fo r fungus, granuloma or neoplasia. Histology was consistent with a skin ulcer compatible with stasis dermatitis. MatriStem sheet was applied to the ulceration at the time of the patient's visit on 08/06. The patient states that he is receiving dressing changes with the assistance of Home Health. The patient complains of pain associated with his ulceration. He has no other complaints today. H e denies any fever or chills. PHYSICAL EXAMINATION: VITAL SIGNS: Temperature 98.0, pulse 92, respirations 17, blood pressure 105/58. EXTREMITIES: A large ulceration of the left anterolateral lower leg is present, which measures appro ximately 10.5 x 6.0 cm. The dimensions of the wound at the time of the patient's visit on 11/15/2017 were approximately 11.4 x 5.0 cm. Granulation tissue is present within the wound margins. Discolor ation of the wound bed is also present on exam today. This discoloration is green/black and involves approximately the same area involved at the time of the patient's last visit. No purulent drainage is associated with the wound. No cellulitis of the left lower leg is appreciated. No maceration of the skin of the periwound is noted. Edema of the left lower leg is present on exam today. ASSESSMENT AND PLAN: 1. Chronic venous hypertension with ulceration. Dressing changes of Medihoney, 4x4s, ABDs, Kerlix a nd an Anup bandage will be initiated today. These dressing changes are to be performed 3 times per we ek after cleansing and irrigation with the assistance of Home Health. I again have asked the patient to utilize his pneumatic pump on the left for 45 minutes each day. The results of the patient's mary luation by Cardiology for venous ablation on the left will be obtained. I will see Mr. Lind again in 2 weeks. 2. Lymphedema. The patient is to utilize his pneumatic pump on the left for 45 minutes each day. 3. Degenerative joint disease. 4. Asbestosis. 5. Congestive heart failure. 6. Anemia. 7. Benign prostatic hypertrophy. 8. Chronic kidney disease.
[2017-12-20] MEDS ORDERED: Sodium Chloride 0.9% 15 ML NEB ONE (18:28)
[2017-12-20] MEDS ORDERED: Lidocaine 4% Topical Sol 50 ML BOT ONE (18:28)
== END 2017-12-20 07:57 | disposition home or self-care (01) ==
LOC: WCC 07:56
PROVIDERS: ATTEND Family Medicine
DX: I87.312 Chronic venous hypertension (idiopathic) with ulcer of left lower extremity (principal); L97.829 Non-pressure chronic ulcer of other part of left lower leg with unspecified severity; I89.0 Lymphedema, not elsewhere classified; M19.90 Unspecified osteoarthritis, unspecified site; J61 Pneumoconiosis due to asbestos and other mineral fibers; I50.9 Heart failure, unspecified; D64.9 Anemia, unspecified; N40.0 Benign prostatic hyperplasia without lower urinary tract symptoms; N18.9 Chronic kidney disease, unspecified
CPT/HCPCS: A4218; J2001

== ENCOUNTER 2018-01-10 08:13 | Outpatient (CLI) | payer MEDICARE ==
--- NOTE | 2018-01-10 09:05 | PRG ---
DATE OF SERVICE: 01/10/2018 HISTORY: Mr. Alex Lind is a very pleasant 77-year-old gentleman who presents to the Wound Center for evaluation of an ulceration of the left anterolateral lower leg. The patient completed a course of treatment with Apligraf. Biopsy of the ulceration obtained on 08/25/2017 returned negative for f ungus, granuloma or neoplasia. Histology was consistent with a skin ulcer compatible with stasis bri matitis. MatriStem sheet was applied to the ulceration at the time of the patient's visit on 018. The patient is receiving dressing changes with the assistance of Home Health. The patient stat es that he has still not been seen by Cardiology for evaluation for venous ablation. PHYSICAL EXAMINATION: VITAL SIGNS: Temperature 97.6, pulse 95, respirations 18, blood pressure 130/73. EXTREMITIES: A large ulceration of the left anterolateral lower leg is present, which measures appro ximately 11.0 x 6.5 cm. The dimensions of the wound at the time of the patient's visit on 12/20/2017 were approximately 10.5 x 6.0 cm. Granulation tissue is present within the wound margins. No purul ent drainage is associated with the wound. No cellulitis of the left lower leg is appreciated. No m aceration of the skin of the periwound is noted. Edema of the left lower leg is present on exam toda y. The wound bed has improved in its appearance since the patient's last visit. ASSESSMENT AND PLAN: 1. Chronic venous hypertension with ulceration. Dressing changes of Medihoney, 4 x 4s, ABDs, Kerlix , and an Anup bandage will be continued 3 times per week after cleansing and irrigation with the keith tance of Home Health. The patient is to continue to utilize his pneumatic pump on the left for 45 mi nutes each day. Arrangements will be made for the patient to be seen by Cardiology for evaluation fo r venous ablation on the left. I will see Mr. Lind again after he has been evaluated by Cardiology for venous ablation. 2. Lymphedema. The patient is to continue to utilize his pneumatic pump on the left for 45 minutes each day. 3. Degenerative joint disease. 4. Asbestosis. 5. Congestive heart failure. 6. Anemia. 7. Benign prostatic hypertrophy. 8. Chronic kidney disease.
[2018-01-10] MEDS ORDERED: Lidocaine 4% Topical Sol 50 ML BOT ONE (10:45)
[2018-01-10] MEDS ORDERED: Sodium Chloride 0.9% 15 ML NEB ONE (10:45)
== END 2018-01-10 08:14 | disposition home or self-care (01) ==
LOC: WCC 08:13
PROVIDERS: ATTEND Family Medicine
DX: I87.312 Chronic venous hypertension (idiopathic) with ulcer of left lower extremity (principal); I50.20 Unspecified systolic (congestive) heart failure; N18.9 Chronic kidney disease, unspecified; D63.1 Anemia in chronic kidney disease; J61 Pneumoconiosis due to asbestos and other mineral fibers; I89.0 Lymphedema, not elsewhere classified; M19.90 Unspecified osteoarthritis, unspecified site; N40.0 Benign prostatic hyperplasia without lower urinary tract symptoms
CPT/HCPCS: 29581; A4218; J2001

== ENCOUNTER 2018-01-24 07:47 | Outpatient (CLI) | payer MEDICARE ==
--- NOTE | 2018-01-24 10:18 | PRG ---
DATE OF SERVICE: 01/24/2018 HISTORY: Mr. Alex Lind is a very pleasant 77-year-old gentleman who presents to the Wound Center for evaluation of an ulceration of the left anterolateral lower leg. The patient completed a course of treatment with Apligraf. Biopsy of the ulceration obtained on 08/25/2017. returned negative for fungus granuloma or neoplasia. Histology was consistent with a skin ulcer compatible with stasis de rmatitis. MatriStem sheet was applied to the ulceration at the time of the patient's visit on 2017. The patient has been receiving dressing changes of Medihoney with the assistance of Home Healt . Since his last visit to the Wound Center, the patient states that he has been evaluated by Cardio logy for venous ablation. PHYSICAL EXAMINATION: VITAL SIGNS: Temperature 97.7, pulse 70, respirations 18, blood pressure 127/76. EXTREMITIES: A large ulceration of the left anterolateral lower leg is present, which measures appro ximately 11.5 x 6.5 cm. Granulation tissue is present within the wound margins. A portion of the wo und bed contains tissue with a green discoloration. A sample of the discolored soft tissue was excis ed with the use of scissors and sent to microbiology for aerobic, anaerobic, and fungal cultures. No purulent drainage is associated with the wound. No cellulitis of the left lower leg is appreciated. No maceration of the skin of the periwound is noted. A dorsalis pedis pulse is palpable on the lef t. Less edema of the left lower leg is present on exam today than at the time of the patient's last visit. ASSESSMENT AND PLAN: 1. Chronic venous hypertension with ulceration. Dressing changes of Medihoney, 4 x 4s. ABDs, Kerli x, and an Anup bandage will be continued 3 times per week after cleansing and irrigation with the assi stance of [facility]. The patient states he is not able to use his pneumatic pump on the left, meghna use of discomfort associated with its use due to his wound. The records from the patient's visit [facility] Cardiology will be obtained. I will see Mr. Lind again in four weeks. Antibiotic therapy will b e initiated based upon the results of the tissue cultures obtained today. 2. Lymphedema. The patient is to utilize his pneumatic pump on the right for 45 minutes each day. 3. Degenerative joint disease. 4. Asbestosis. 5. Congestive heart failure. 6. Anemia. 7. Benign prostatic hypertrophy. 8. Chronic kidney disease.
[2018-01-24] MEDS ORDERED: Sodium Chloride 0.9% 15 ML NEB ONE (21:47)
== END 2018-01-24 07:48 | disposition home or self-care (01) ==
LOC: WCC 07:47
PROVIDERS: ATTEND Family Medicine
DX: I87.312 Chronic venous hypertension (idiopathic) with ulcer of left lower extremity (principal); L97.929 Non-pressure chronic ulcer of unspecified part of left lower leg with unspecified severity; I89.0 Lymphedema, not elsewhere classified; M19.90 Unspecified osteoarthritis, unspecified site; J61 Pneumoconiosis due to asbestos and other mineral fibers; N18.9 Chronic kidney disease, unspecified; I50.9 Heart failure, unspecified; D63.1 Anemia in chronic kidney disease; N40.0 Benign prostatic hyperplasia without lower urinary tract symptoms
CPT/HCPCS: 87070; 87077; 87102; 87186; 87205; 87206; A4218

== ENCOUNTER 2018-02-02 10:55 | Outpatient (CLI) | payer MEDICARE ==
--- NOTE | 2018-02-02 13:33 | PRG ---
DATE OF SERVICE: 02/02/2018 HISTORY: Mr. Alex Lind is a very pleasant 77-year-old gentleman who presented to the [facility] for evaluation of an ulceration of the left anterolateral lower leg. The patient completed a cours e of treatment with Apligraf. Biopsy of the ulceration obtained on 08/25/2017 returned negative for fungus granuloma or neoplasia. Histology was consistent with a skin ulcer compatible with stasis bri matitis. MatriStem sheet was applied to the ulceration at the time of the patient's visit on 018. The patient has been receiving dressing changes of Medihoney with the assistance of Home Health . The patient returns to the Wound Center earlier than his scheduled followup visit because of a wor sening in the appearance of his wound. The patient previously stated that he has been evaluated by Yvonne ardiradha for venous ablation. PHYSICAL EXAMINATION: VITAL SIGNS: Temperature 97.7, pulse 79, respirations 20, blood pressure 110/61. EXTREMITIES: A large ulceration of the left anterolateral lower leg is present which measures approx imately 12.5 x 7.5 cm. Granulation tissue is present within the wound margins. Most of the wound be d is associated with a green discoloration of the wound bed. No purulent drainage is associated with the wound. No cellulitis of the left lower leg is appreciated. No maceration of the skin of the pe riwound is noted. Edema of the left lower leg is present on exam today. ASSESSMENT AND PLAN: 1. Chronic venous hypertension with ulceration. Dressing changes of Santyl, 4 x 4s, ABDs, Kerlix, a nd an Anup bandage will be initiated. These dressing changes are to be performed 3 times per week aft er cleansing and irrigation with the assistance of Home Health. [facility]rangements [facility] Santyl. The patient previously stated that he is not able to use his pneumatic pump o n the left because of discomfort associated with its use due to his wound. The records from the [facility] ent's visit with Cardiology will be obtained. The patient has been placed on Bactrim DS #20 one p.o. b.i.d. x10 days and Augmentin 875/125, #20, 1 p.o. b.i.d. x10 days based upon the results of the tis fausto cultures obtained at the time of the patient's visit on 01/24/2018. I will see Mr. Lind again in 4 weeks or after any necessary treatment by Cardiology. 2. Lymphedema. The patient is to utilize his pneumatic pump on the right for 45 minutes each day. 3. Degenerative joint disease. 4. Asbestosis. 5. Congestive heart failure. 6. Anemia. 7. Benign prostatic hypertrophy. 8. Chronic kidney disease.
[2018-02-02] MEDS ORDERED: Lidocaine 2% Jelly 5 ML TUBE ONE (16:31)
[2018-02-02] MEDS ORDERED: Sodium Chloride 0.9% 15 ML NEB ONE (16:31)
== END 2018-02-02 10:56 | disposition home or self-care (01) ==
LOC: WCC 10:55
PROVIDERS: ATTEND Family Medicine
DX: I87.312 Chronic venous hypertension (idiopathic) with ulcer of left lower extremity (principal); L97.929 Non-pressure chronic ulcer of unspecified part of left lower leg with unspecified severity; I89.0 Lymphedema, not elsewhere classified; M19.90 Unspecified osteoarthritis, unspecified site; J61 Pneumoconiosis due to asbestos and other mineral fibers; N40.0 Benign prostatic hyperplasia without lower urinary tract symptoms; I13.0 Hypertensive heart and chronic kidney disease with heart failure and stage 1 through stage 4 chronic kidney disease, or unspecified chronic kidney disease; N18.9 Chronic kidney disease, unspecified; D63.1 Anemia in chronic kidney disease; I50.9 Heart failure, unspecified
CPT/HCPCS: 29581; A4218

== ENCOUNTER 2018-03-30 08:09 | Outpatient (CLI) | payer MEDICARE ==
--- NOTE | 2018-03-30 09:19 | PRG ---
DATE OF SERVICE: 03/30/2018 HISTORY: Mr. Alex Lind is a very pleasant 77-year-old gentleman, who presents to the [facility] for evaluation of an ulceration of the left anterolateral lower leg. The patient completed a cours e of treatment with Apligraf. Biopsy of the ulceration obtained on 08/25/2017 returned negative for fungus, granuloma, or neoplasia. Histology was consistent with a skin ulcer compatible with stasis d ermatitis. MatriStem sheet was applied to the ulceration at the time of the patient's visit on 09/01. The patient states he has been receiving dressing changes of Santyl with the assistance of [facility]. The patient states that he has also been seen by Cardiology for evaluation for venous abl ation. PHYSICAL EXAMINATION: VITAL SIGNS: Temperature 98.0, pulse 81, respirations 18, blood pressure 133/67. EXTREMITIES: A large ulceration of the left anterolateral lower leg is present, which measures appro ximately 11.4 x 6.3 cm. The dimensions of the wound at the time of the patient's visit on 02/02/2018 were approximately 12.5 x 7.5 cm. Granulation tissue is present within the wound margins. The gree n discoloration of the wound bed has almost completely resolved. No purulent drainage is associated with the wound. No cellulitis of the left lower leg is appreciated. Erythema of the skin surroundin g the wound is present and appears to be secondary to stasis changes as opposed to an infectious proc ess. No maceration of the skin of the periwound is noted. A dorsalis pedis pulse is easily palpable on the left. Edema of the left lower leg is again noted on exam today. ASSESSMENT AND PLAN: 1. Chronic venous hypertension with ulceration. Dressing changes of Santyl, 4 x 4s, ABDs, Kerlix, a nd an Anup bandage will be continued 3 times per week after cleansing and irrigation with the assistan ce of [facility]. Arrangements were previously made for the home delivery of Santyl. The patient h as been encouraged to utilize his pneumatic pump on the left. The records from the patient's last vi sit with Cardiology will be obtained. I will see Mr. Lind again in 4 weeks. 2. Lymphedema. The patient is to utilize his pneumatic pump on the right and on the left for 45 min utes each day for each lower extremity. 3. Degenerative joint disease. 4. Asbestosis. 5. Congestive heart failure. 6. Anemia. 7. Benign prostatic hypertrophy. 8. Chronic kidney disease.
[2018-03-30] MEDS ORDERED: Sodium Chloride 0.9% 15 ML NEB ONE (14:30)
== END 2018-03-30 08:10 | disposition home or self-care (01) ==
LOC: WCC 08:09
PROVIDERS: ATTEND Family Medicine
DX: I87.312 Chronic venous hypertension (idiopathic) with ulcer of left lower extremity (principal); L97.929 Non-pressure chronic ulcer of unspecified part of left lower leg with unspecified severity; M19.90 Unspecified osteoarthritis, unspecified site; J61 Pneumoconiosis due to asbestos and other mineral fibers; I50.9 Heart failure, unspecified; N18.9 Chronic kidney disease, unspecified; N40.0 Benign prostatic hyperplasia without lower urinary tract symptoms; D64.9 Anemia, unspecified
CPT/HCPCS: A4218

== ENCOUNTER 2018-04-14 11:00 | Inpatient (IN) | payer MEDICARE ==
[2018-04-14 12:01] LABS: Lavender RECEIVED; Red RECEIVED
[2018-04-14 12:04] LABS: Hemoglobin 12.4 g/dL (14.0-18.0); Mean Corpuscular Hemoglobin 33.1 pg (27.0-31.0); Mean Platelet Volume 8.9 fL (7.4-10.4); Platelet Count 164 thou/uL (130-400); RBC Distribution Width 15.5 % (11.5-14.5); Red Blood Cell (RBC) Count 3.76 mill/uL (4.70-6.10)
[2018-04-14 12:21] LABS: ALT (SGPT) 10 U/L (8-55); AST (SGOT) 21 U/L (5-34); Albumin 3.7 g/dL (3.4-4.8); Alkaline Phosphatase 83 U/L (40-150); Anion Gap 14 mmol/L (10-20); BUN (Urea Nitrogen) 13 mg/dL (8.4-25.7); Bilirubin, Total 1.4 mg/dL (0.2-1.2); Calc. Creatinine Clearance 0 mL/min (70-130); Calcium 9.4 mg/dL (7.8-10.44); Carbon Dioxide 19 mmol/L (23-31); Chloride 103 mmol/L (98-107); Estimated GFR-MDRD 64; Globulin 5.5 g/dL (2.4-3.5); Glucose 91 mg/dL (83-110); Potassium 4.4 mmol/L (3.5-5.1); Protein, Total 9.2 g/dL (5.8-8.1); Sodium 132 mmol/L (136-145)
[2018-04-14 12:23] LABS: Band 14 % (5-11); Lymphocytes 13 % (21-51); MDiff Complete? YES; Macrocytosis SLIGHT = 6-15 cells (100X) (0-5/hpf); Monocytes 15 % (0-10); Neutrophil 58 % (42-75); PLT Morphology Comment Appears Adequate; Polychromasia SLIGHT = 2-3 cells (100X) (0-2/hpf)
[2018-04-14] MEDS ORDERED: Acetaminophen 500 MG TAB ONE (12:27)
--- NOTE | 2018-04-14 12:28 | RAD ---
PORTABLE CHEST: Date: 04/14/18 HISTORY: Follow-up wound care. Comparison made to chest film of 08/25/17. FINDINGS: Lungs appear clear. No infiltrate or vascular congestion. Heart and mediastinum unremarkable. IMPRESSION: No acute finding or interval change noted. POS: [facility]
[2018-04-14 12:30] LABS: Bilirubin Negative (Negative); Blood, Urine Trace (Negative); Clarity CLOUDY (Clear); Glucose, Urine (Dipstick) Negative (Negative); Leukocyte Large (Negative); Nitrite Positive (Negative); Protein, Urine (Dipstick) 30 mg/dL (Neg-Trace); Specific Gravity, Urine 1.009 (1.002-1.036); Urobilinogen 0.2 mg/dL (0.2-1.0)
[2018-04-14 12:34] LABS: Bacteria/HPF 4+ HPF (None Seen); Pathc Cast-AUWi Flag 1.59 (0-2.49); Squamous Epithelial 0-3 HPF (0-3)
[2018-04-14 12:38] LABS: Hyaline Casts/LPF 0-3 HYALINE CAST LPF (0-3 Hyaline)
[2018-04-14] MEDS ORDERED: cefTRIAXone\\ROCEPHIN 2 GM VIAL ONE (12:46)
[2018-04-14] MEDS ORDERED: ADMIXTURE FEE IVPB SCH (13:00)
[2018-04-14] MEDS ORDERED: SODIUM CHLORIDE IVPB SCH (13:00)
[2018-04-14] MEDS ORDERED: Vancomycin HCl 1.5 GM in Sodium Chloride 0.9% 250 ML 300 ML IVPB SCH (13:00)
[2018-04-14] MEDS ORDERED: GENTAMICIN SULFATE IVPB SCH (13:00)
[2018-04-14] MEDS ORDERED: Ondansetron HCl/PF 4 MG/2 ML Vial ONE (13:11)
[2018-04-14] MEDS ORDERED: Fentanyl 100 MCG/2 ML VIAL ONE (14:28)
[2018-04-14] MEDS ORDERED: cloNIDine 0.1 MG TAB PO PRN (14:38)
[2018-04-14] MEDS ORDERED: Calcium Carbonate 500 MG ChewTAB PO PRN (14:38)
[2018-04-14] MEDS ORDERED: HYDROcodone/Acetaminophen 5/325 mg Tablet PO PRN (14:38)
[2018-04-14] MEDS ORDERED: Ondansetron HCl/PF 4 MG/2 ML Vial IVP PRN (14:38)
[2018-04-14] MEDS ORDERED: hydrALAZINE 20 MG/ML VIAL SLOW IVP PRN (14:38)
[2018-04-14] MEDS ORDERED: Nitroglycerin 0.4 MG TAB (25 Tab Bottle) SL PRN (14:38)
[2018-04-14] MEDS ORDERED: Loratadine 10 MG TAB PO PRN (14:38)
[2018-04-14] MEDS ORDERED: Senokot S 8.6-50 MG TAB PO PRN (14:38)
[2018-04-14] MEDS ORDERED: Diabetic Tussin 200 MG/10 ML UDCUP PO PRN (14:38)
[2018-04-14] MEDS ORDERED: Bisacodyl 5 MG TAB PO PRN (14:38)
[2018-04-14] MEDS ORDERED: Benzonatate 100 MG CAP PO PRN (14:38)
--- NOTE | 2018-04-14 15:55 | HP ---
DATE OF ADMISSION: 04/14/2018 PRIMARY CARE PHYSICIAN: Carline Melgar M.D. CHIEF COMPLAINT: Generalized weakness of few hours duration. HISTORY OF PRESENTING ILLNESS: Mr. Lind is a very pleasant 77-year-old male with past medical hist ory of chronic left lower extremity venostasis ulcer under the care of Dr. Allen at the [facility] as well as history of congestive heart failure, benign prostatic hypertrophy, and chronic kidney dise ase who presented to the ER with above-mentioned complaint. History is mainly obtained by the patien t himself and electronic medical records have been reviewed. Case has been discussed with admitting ER physician, Dr. Sebastian. Mr. Lind reports that he has been in his usual health up until this morning. He has no recent illn esses. He is independent and is able to take care of himself on a daily basis. This morning, he wok e up at 4:00 a.m. and did his laundry and folded it at around 5:30 and all of a sudden he felt so wea k that he sat down and could not get up. Home health care nurse was evaluating him later today, and she also found out that he was extremely weak, which is not normal for the patient. He himself denie s any recent events. He denies any fever, chills, cough, rhinorrhea, or shortness of breath or chest pain. He denies any abdominal pain, nausea, vomiting, diarrhea. He denies any increased urinary fr equency, any foul smell or different color to his urine. He feels that his left lower extremity woun d is about the same. He cannot really tell if it is getting worse in terms of pain or erythema. Upon presentation to the ER, he was hemodynamically stable with the blood pressure 157/98, but his T- max was 100.9 degrees Fahrenheit. He was somewhat tachycardic and his left leg had large ulceration with surrounding erythema with some greenish discharge. He was also found to have urinalysis consist ent with urinary tract infection. His 12-lead EKG showed junctional rhythm without any ST or T-wave changes. He was started on empiric IV antibiotic for possibly left lower extremity cellulitis as wel l as UTI and is now being admitted with a presumptive diagnosis of sepsis. He does have a leukocytos is with left shift on the lab examination. PAST MEDICAL HISTORY: 1. Congestive heart failure, likely systolic and diastolic based on his last echocardiogram done in 2016, which had EF of 45% and 1/3 diastolic dysfunction. 2. Chronic kidney disease, stage 3. 3. History of benign prostatic hypertrophy. 4. Anemia. 5. Recurrent urinary tract infection. 6. History of elevated inflammatory markers of unclear etiology. PAST SURGICAL HISTORY: 1. Upper endoscopy and colonoscopy. 2. Lung biopsy. SOCIAL HISTORY: He lives by himself and is fairly independent with ADLs and IADLs. His daughter david es close by who helps drive him to his appointments, etc. He is an ex-alcoholic, quit about 20 years ago. No history of drug or tobacco abuse. ALLERGIES: No known medication allergies. FAMILY HISTORY: Significant for lung cancer in his mother, coronary artery disease in mother as well . Negative for diabetes mellitus. REVIEW OF SYSTEMS: A 12-point review of systems is done. It is negative except for those mentioned in the history and physical. LABORATORY DATA: CBC shows WBCs 14.0 with 14% bands, hemoglobin is 12.4, platelet count of 164. Ser um chemistry shows sodium of 132, bicarbonate 19. Renal function within normal limit with estimated GFR of 64, bilirubin 1.4. Urinalysis has nitrites, leukocyte esterase, wbc's and +4 bacteria. Chest x-ray by my review does not have any evidence of infiltrate or pleural effusion. A 12-lead EKG by m y review shows normal sinus rhythm without acute ST or T-wave changes. HOME MEDICATIONS: Home medications will be further confirmed, but [facility] the [facility] 20 mEq in the morning, Entresto 49/51 b.i.d., Lasix 40 mg b.i.d., fluconazole 150 mg ever y 3 days until gone, gabapentin 300 mg t.i.d., carvedilol 6.25 b.i.d., ferrous sulfate 325 mg daily, bupropion 150 mg daily, folic acid 1 mg daily. PHYSICAL EXAMINATION: VITAL SIGNS: Upon presentation, blood pressure 157/98, temperature max of 100.9, respirations 22, sa turating 99% on room air. GENERAL: No acute distress. He does appear somewhat unkempt, but is in good spirits. Awake, alert, oriented x3. HEENT: Mucous membranes are slightly dry. No oropharyngeal exudate or erythema. Head is normocepha lic, atraumatic. Pupils equal, reactive to light and accommodation. Extraocular movement intact. NECK: Supple without any lymphadenopathy, JVD or bruit. CHEST: Clear to auscultation without any wheezing, rales or rhonchi. He is somewhat tender to palpa tion left upper anterior chest. Rate and rhythm is regular without any murmur, rubs or gallops. ABDOMEN: Soft, nontender, nondistended with positive bowel sounds. EXTREMITIES: Right lower extremity unremarkable. Left lower extremity has a large ulcer on the left lateral frost with black eschar and greenish discharge with surrounding erythema. NEUROLOGIC: Nonfocal. SKIN: Free of any rashes or bruises. I feel warm and dry to touch. PSYCHIATRIC: Normal affect. IMPRESSION AND PLAN: 1. Sepsis, likely secondary to urinary tract infection with a left lower extremity chronic ulcer wou nd infection. He will be continued on empiric antibiotics. We will give him levofloxacin and vancom ycin to cover for Pseudomonas as well as MRSA. We will request consultation with Infectious Disease specialist, Dr. Castorena, for further recommendations. Blood culture and urine cultures have been obtai mark in the ER and we will continue to monitor the final results. He was started with left lower extr emity x-ray to look for any bony involvement, but he may need MRI of the leg given the chronicity of the left wound. We will check lactic acid as well. His lactic acid was checked and was 1.6. We janice l have wound care team followed the patient along. 2. Urinary tract infection, start empiric antibiotic and follow the results of the urinary culture. 3. History of chronic congestive heart failure, likely systolic and diastolic in nature. The patien t's last echocardiogram was in 2016 as per HPI. We will resume his home medications once confirmed w ith aspirin, Entresto and beta fatimah. 4. Generalized weakness secondary to #1. OT, PT will be consulted and rehabilitation will be arrang ed for the patient if appropriate. 5. Chronic kidney disease, currently stable. Monitor for signs and symptoms of further dehydration and avoid nephrotoxic medications. 6. Code status discussed with the patient. He wants to be a FULL CODE. 7. Deep venous thrombosis and gastrointestinal prophylaxis. DISPOSITION: Mr. Lind is currently being admitted to the hospital for sepsis likely secondary to u rinary tract infection with chronic leg ulcer, infection as well. Estimated length of stay at this t tree is 2-3 midnights. He is hemodynamically stable and will be admitted to medical floor. Further m anagement will depend upon his clinical course.
[2018-04-14] MEDS ORDERED: Enoxaparin Sodium 40 MG/0.4 ML SYRINGE SC SCH (16:00)
[2018-04-14 16:43] VITALS: BMI 41.4
--- NOTE | 2018-04-14 17:07 | RAD ---
LEFT LOWER LEG 2 VIEWS: Date: 04/14/18 HISTORY: Left leg wound. FINDINGS: There are degenerative changes of the ankle and knee. Phleboliths are apparent within the soft tissue s. No acute fracture, dislocation, aggressive osseous erosions, or soft tissue gas are reliably demon strated. IMPRESSION: No acute osseous abnormalities are demonstrated. POS: [facility]
[2018-04-14] MEDS: Vancomycin HCl 1.75 GM in Sodium Chloride 0.9% 500 ML IVPB SCH (17:34)
[2018-04-14] MEDS ORDERED: MEROPENEM 1 GM/50 ML 1 GM in Premix Bag 1 BAG IVPB SCH (18:00)
--- NOTE | 2018-04-14 19:33 | CT ---
CT ABDOMEN AND PELVIS WITHOUT IV CONTRAST 04/14/18 Multiple axial tomograms obtained through the abdomen and pelvis without IV enhancement. INDICATIONS: Fever. History of hydronephrosis. Abdominal pain, worse on the right. FINDINGS: Lung bases are clear. The liver, spleen, and pancreas unremarkable. Gallbladder is mildly distended. Numerous small calcified gallstones are seen in the neck of the gall bladder. No evidence of pericholecystic edema. No evidence of biliary duct dilatation. Adrenal glands are normal. Kidneys unremarkable. There is no evidence of hydronephrosis. There is no evidence of urinary tract c alculus. The ureters are normal caliber. The urinary bladder is mildly distended. There is mild urina ry bladder wall thickening. Prostate mildly enlarged impinging on the floor of the bladder. There is a complex cyst arising from the posterior left kidney measuring 2.6 cm. The Hounsfield units are recorded at 20 making this a complex lesion. There is bilateral perinephric stranding. Aorta is normal caliber. Nonspecific periaortic lymph nodes are seen which are subcentimeter. Small bowel loops are normal caliber. Colon unremarkable. Aorta normal caliber. IMPRESSION: 1. Cholelithiasis. 2. Complex lesion arising from the posterior left kidney. This may represent a complex cyst but cannot be confirmed as cystic by Hounsfield units. [facility]. 3. Perinephric stranding is nonspecific and may be chronic. Correlate for urinary tract infectio n. There is no evidence of hydronephrosis. 4. There is mild urinary bladder wall thickening which could indicate cystitis. POS: [facility]
[2018-04-14] MEDS: Sacubitril 49 MG/Valsartan 51 MG TABLET PO SCH (20:06)
[2018-04-14] MEDS: Gabapentin 300 MG CAP PO SCH (20:06)
[2018-04-14] MEDS: Furosemide 40 MG TAB PO SCH (20:06)
[2018-04-14] MEDS: Acetaminophen 325 MG TAB PO PRN (20:06)
[2018-04-14] MEDS: Famotidine 20 MG TAB PO SCH (20:06)
[2018-04-14] MEDS ORDERED: Vancomycin HCl 1 GM in Sodium Chloride 0.9% 250 ML 300 ML IVPB SCH (21:00)
[2018-04-14] MEDS ORDERED: Ibuprofen 200 MG TAB PO SCH (22:00)
--- NOTE | 2018-04-14 22:41 | CON ---
DATE OF CONSULTATION: 04/14/2018 REASON FOR CONSULTATION: Fever. HISTORY OF PRESENT ILLNESS: A 77-year-old has a history of venous stasis with stasis ulceration, biopsy proven; ischemic cardiomyopathy with EF 45% and renal insufficiency stage 3 as well as previous evidence of urinary obstruction probably secondary to outflow tract obstruction due to benign prostatic hypertrophy with bilateral hydronephrosis who was admitted with generalized weakness. He was brought to the emergency room and initial temperature was 100.9, blood pressure 150/98, tachycardia. There was some concern with the appearance of the left leg ulceration in the urinalysis was abnormal. The patient was admitted and started on levofloxacin and vancomycin, he is currently quite drowsy, arousable. He is oriented, follows commands, but only upon insistence due to his drowsiness. He denies any headaches, no visual symptoms, sore throat, odynophagia, dysphagia, no vomiting, no dyspnea or chest pain. During the examination, he complained of tenderness on palpation of the left costochondral area. He was shivering when I started to examine him. His skin temperature appeared to be elevated. He had pain in multiple joints, particularly right shoulder and right and left knees. PAST MEDICAL HISTORY: Includes CHF probably ischemic cardiomyopathy, EF 45%; renal insufficiency stage 3; BPH; hydronephrosis; prior episodes of UTI. PAST SURGICAL HISTORY: Lung biopsy, endoscopies. SOCIAL HISTORY: He lives in the area by himself. ALLERGIES: None. FAMILY HISTORY: Lung cancer, coronary artery disease. CURRENT MEDICATIONS: Tylenol, [place], Tessalon, Dulcolax, Tums, Catapres, Lovenox, Pepcid, Robitussin, levofloxacin, nitroglycerin, and vancomycin. PHYSICAL EXAMINATION: VITAL SIGNS: T-max 100.9 on arrival. O2 sat 93%, pulse 90, respirations 20. SKIN: Shows the oval shaped ulcer with a sort of boot like shaped at the top end of the ulceration. Most of the ulcer has fresh red granulation tissue and it is not very deep. Some hyperpigmented scabs around this ulcer in the medial aspect. It measures about 12 x 6 cm little bit of blepharitis, left orbit. HEENT: Pupils are equal, about 1 mm and reactive. Nasal passages patent. Oral cavity moist, numerous missing teeth. NECK: Supple. LUNGS: With symmetric air entry without crackles or wheezing. HEART: S1, S2, regular rate without murmurs, tenderness on mobilization of the right shoulder. I would say moderate to marked tenderness. ABDOMEN: Mildly distended. Bowel sounds are present, no ascites. Question of bladder distention, no organomegaly. Evidence of osteoarthrosis in knees with quite a bit of tenderness on palpation both right and left, more in the right side. There is evidence of stasis dermatitis in lower extremities. Pulses 1+ in dorsalis pedis. NEUROLOGIC: He is quite drowsy, arousable, oriented upon stimulation. Follows commands, but falls asleep very promptly. LABORATORY DATA: White cell count 14, hemoglobin 12.4, platelets 164 with 58% neutrophils, 14% bands. Chemistry with sodium 132, creatinine 1.11, bilirubin 1.4, transaminases normal, alkaline phosphatase 83. Serum total protein 9.2, globulin 5.5. Urinalysis with greater than 50 wbcs. IMAGING STUDIES: Included chest x-ray, but no acute findings. ASSESSMENT: 1. History of ischemic cardiomyopathy. 2. Benign prostatic hypertrophy with prior areas of obstruction on the outflow tract with hydronephrosis. 3. Stasis dermatitis, biopsy proven with ulceration, left leg, chronic. 4. Weakness and chills. 5. Change in mental status. DISCUSSION: The patient likely has sepsis, probable of urinary tract origin, although bacteremia associated with the skin lesion is possible as well. Staphylococcus aureus including MRSA and resistant gram-negative rods are possible. Switch him to meropenem, continue vancomycin, adjust dose for renal function. Target trough around 15 mcg per mL. Check postvoid residual and kidney ultrasound or a CT stone protocol. Follow up blood cultures. MTDD
[2018-04-15] MEDS: MEROPENEM 1 GM/50 ML 1 GM in Premix Bag 1 BAG IVPB SCH ×3 (00:11→15:03)
[2018-04-15] MEDS: Acetaminophen 325 MG TAB PO PRN ×2 (00:12→17:23)
[2018-04-15] MEDS ORDERED: Acetaminophen 325 MG TAB ONE (05:03)
[2018-04-15] MEDS: Carvedilol 6.25 MG TAB PO SCH ×2 (09:45→17:22)
[2018-04-15] MEDS: Famotidine 20 MG TAB PO SCH ×2 (09:45→20:14)
[2018-04-15] MEDS: Enoxaparin Sodium 40 MG/0.4 ML SYRINGE SC SCH (09:45)
[2018-04-15] MEDS: Gabapentin 300 MG CAP PO SCH ×3 (09:48→20:14)
[2018-04-15] MEDS: Ferrous Sulfate 325 MG TAB PO SCH (09:48)
[2018-04-15] MEDS: Folic Acid 1 MG TAB PO SCH (09:48)
[2018-04-15] MEDS: Furosemide 40 MG TAB PO SCH ×2 (09:48→20:14)
[2018-04-15] MEDS: Potassium Chloride 20 MEQ TAB PO SCH (09:49)
[2018-04-15] MEDS: Vancomycin HCl 1.75 GM in Sodium Chloride 0.9% 500 ML IVPB SCH ×2 (11:46→17:22)
[2018-04-15] MEDS: Bupropion 150 MG XL TAB PO SCH (11:56)
[2018-04-15] MEDS: Sacubitril 49 MG/Valsartan 51 MG TABLET PO SCH ×2 (11:56→20:14)
[2018-04-15 12:07] LABS: Band 22 % (5-11); Lymphocytes 13 % (21-51); Monocytes 19 % (0-10); Neutrophil 46 % (42-75)
[2018-04-15 12:08] LABS: Hemoglobin 9.6 g/dL (14.0-18.0); MDiff Complete? YES; Macrocytosis SLIGHT = 6-15 cells (100X) (0-5/hpf); Manual Diff?? YES; Mean Platelet Volume 9.5 fL (7.4-10.4); Platelet Count 134 thou/uL (130-400); RBC Distribution Width 15.7 % (11.5-14.5); White Blood Cell (WBC) Count 22.2 thou/uL (4.8-10.8)
[2018-04-15 13:37] LABS: Anion Gap 13 mmol/L (10-20); BUN (Urea Nitrogen) 18 mg/dL (8.4-25.7); Calc. Creatinine Clearance 66 mL/min (70-130); Calcium 8.2 mg/dL (7.8-10.44); Carbon Dioxide 18 mmol/L (23-31); Chloride 106 mmol/L (98-107); Estimated GFR-MDRD 40; Glucose 101 mg/dL (83-110); Potassium 3.7 mmol/L (3.5-5.1); Sodium 133 mmol/L (136-145)
--- NOTE | 2018-04-15 14:41 | PDOC.PN ---
- Subjective Encounter Start Date: 04/15/18 Encounter Start Time: 13:03 Subjective: seen and examined. feels somewhat better and stonger today -: denies any CP/SOB. no N/V/D/abd pain - Objective Resuscitation Status: Resuscitation Status FULL:Full Resuscitation MAR Reviewed: Yes Vital Signs & Weight: Vital Signs (12 hours) BP Pulse Ox 04/15/18 09:45 110/75 04/15/18 08:00 98 Weight Weight 272 lb 12.8 oz Result Diagrams: 04/17/18 03:34 04/16/18 04:56 Additional Labs: Microbiology 04/14/18 11:51 Venous blood - Right Hand Blood Culture - Preliminary Specimen has been received and culture in progress. No Growth to date. 04/14/18 11:45 Urine voided Urine Culture - Preliminary Presumptive Kleb/Enterobacter 04/14/18 11:25 Venous blood - Left Arm Blood Culture - Preliminary Specimen has been received and culture in progress. No Growth to date. Laboratory Tests 10/06/17 10/11/17 04/14/18 05:00 11:00 11:51 WBC 14.0 H Hgb 9.1 L 9.6 L 12.4 L 04/15/18 03:50 WBC 22.2 H Hgb 9.6 L Phys Exam - Physical Examination Constitutional: NAD sitting on the edge of bed HEENT: PERRLA, moist MMs, sclera anicteric, oral pharynx no lesions Neck: no nodes, no JVD, supple, full ROM Respiratory: no wheezing, no rales, no rhonchi, clear to auscultation bilateral Cardiovascular: RRR, no significant murmur, no rub Gastrointestinal: soft, non-tender, no distention, positive bowel sounds Musculoskeletal: no edema, pulses present Neurological: non-focal, normal sensation, moves all 4 limbs Psychiatric: normal affect, A&O x 3 Skin: no rash Dx/Plan (1) Sepsis Code(s): A41.9 - SEPSIS, UNSPECIFIED ORGANISM Status: Acute (2) UTI (urinary tract infection) Status: Acute (3) Lower extremity ulceration Code(s): L97.909 - NON-PRS CHRONIC ULC UNSP PRT OF UNSP LOW LEG W UNSP SEVERITY Status: Acute (4) CKD (chronic kidney disease) stage 3, GFR 30-59 ml/min Status: Acute (5) Cardiomyopathy Code(s): I42.9 - CARDIOMYOPATHY, UNSPECIFIED Status: Chronic Qualifiers: Cardiomyopathy type: dilated Qualified Code(s): I42.0 - Dilated cardiomyopathy - Plan continue antibiotics, PT/OT, respiratory therapy, incentive spirometry, out of bed/ambulate, DVT proph w/SCDs cont empiric ABx.follow Cx.CT abd/plevis shows cystitis/no renal stones -: Get ECHo given ac CHF.last in 2015.cont lasix,BB,Entresto -: not on any ASA or statin for unknown reason. will address -: strict I/Os. -: OT,PT.am labs * . Review of Systems - Review of Systems Constitutional: weakness, malaise. negative: fever, chills, sweats, other ENT: negative: Ear Pain, Ear Discharge, Nose Pain, Nose Discharge, Nose Congestion, Mouth Pain, Mouth Swelling, Throat Pain, Throat Swelling, Other Respiratory: negative: Cough, Dry, Shortness of Breath, Hemoptysis, SOB with Excertion, Pleuritic Pain, Sputum, Wheezing Cardiovascular: negative: chest pain, palpitations, orthopnea, paroxysmal nocturnal dyspnea, edema, light headedness, other Gastrointestinal: negative: Nausea, Vomiting, Abdominal Pain, Diarrhea, Constipation, Melena, Hematochezia, Other Genitourinary: negative: Dysuria, Frequency, Incontinence, Hematuria, Retention , Other Musculoskeletal: negative: Neck Pain, Shoulder Pain, Arm Pain, Back Pain, Hand Pain, Leg Pain, Foot Pain, Other Skin: negative: Rash, Lesions, [place], Bruising, Other - Medications/Allergies Allergies/Adverse Reactions: Allergies Allergy/AdvReac Type Severity Reaction Status Date / Time No Known Drug Allergies Allergy Verified 02/19/15 15:53 Medications: Current Medications Acetaminophen (Tylenol) 650 mg PO Q4H PRN PRN Reason: Headache/Fever/Mild Pain (1-3) Last Admin: 04/15/18 00:12 Dose: 650 mg Hydrocodone Bitart/Acetaminophen ([place] 5/325) 1 tab PO Q4H PRN PRN Reason: Moderate Pain (4-6) Last Admin: 04/15/18 11:57 Dose: 1 tab Benzonatate (Tessalon) 100 mg PO Q4H PRN PRN Reason: Cough Bisacodyl (Dulcolax) 10 mg PO DAILYPRN PRN PRN Reason: Constipation Bupropion HCl (Wellbutrin Xl) 150 mg PO DAILY [facility] Last Admin: 04/15/18 11:56 Dose: 150 mg Calcium Carbonate (Tums) 1,000 mg PO Q4H PRN PRN Reason: Heartburn or Indigestion Carvedilol (Coreg) 6.25 mg PO BID-[facility] Last Admin: 04/15/18 09:45 Dose: 6.25 mg Clonidine (Catapres) 0.1 mg PO Q4H PRN PRN Reason: Systolic BP > 160 Enoxaparin Sodium (Lovenox) 40 mg SC 0900 [facility] Last Admin: 04/15/18 09:45 Dose: 40 mg Famotidine (Pepcid) 20 mg PO BID [facility] Last Admin: 04/15/18 09:45 Dose: 20 mg Ferrous Sulfate (Feosol) 325 mg PO DAILY [facility] Last Admin: 04/15/18 09:48 Dose: 325 mg Fluconazole (Diflucan) 150 mg PO Q3DAYS [facility] Folic Acid (Folvite) 1 mg PO DAILY [facility] Last Admin: 04/15/18 09:48 Dose: 1 mg Furosemide (Lasix) 40 mg PO BID [facility] Last Admin: 04/15/18 09:48 Dose: 40 mg Gabapentin (Neurontin) 300 mg PO TID [facility] Last Admin: 04/15/18 09:48 Dose: 300 mg Guaifenesin (Robitussin Sf) 200 mg PO Q4H PRN PRN Reason: Cough Hydralazine HCl (Apresoline) 10 mg SLOW IVP Q4H PRN PRN Reason: Systolic BP > 170 Vancomycin HCl 1.75 gm/ Sodium (Chloride) 500 mls @ 250 mls/hr IVPB 0600,1800 [facility] Last Admin: 04/15/18 11:46 Dose: 500 mls Meropenem 1 gm/ Device 50 mls @ 100 mls/hr IVPB 0800,1600,2359 [facility] Last Admin: 04/15/18 11:57 Dose: 50 mls Loratadine (Claritin) 10 mg PO DAILYPRN PRN PRN Reason: Sinus Symptoms Miscellaneous Medication (Pharmacy To Dose) 1 each IVPB PRN PRN PRN Reason: . Nitroglycerin (Nitrostat) 0.4 mg SL Q5MIN PRN PRN Reason: Chest Pain Ondansetron HCl (Zofran) 4 mg IVP Q6H PRN PRN Reason: Nausea/Vomiting Potassium Chloride (K-Dur) 20 meq PO DAILY [facility] Last Admin: 04/15/18 09:49 Dose: 20 meq Sacubitril/Valsartan (Entresto 49 Mg-51 Mg Tablet) 1 tab PO BID [facility] Last Admin: 04/15/18 11:56 Dose: 1 tab Senna/Docusate Sodium (Senokot S) 2 tab PO BID PRN PRN Reason: Constipation Sodium Chloride (Flush - Normal Saline) 10 ml IVF Q12HR PRN PRN Reason: Saline Flush Tramadol HCl (Ultram) 50 mg PO Q4H PRN PRN Reason: Moderate Pain (4-6)
[2018-04-15] MEDS: traMADol HCl 50 MG TAB PO PRN (15:04)
[2018-04-16] MEDS: MEROPENEM 1 GM/50 ML 1 GM in Premix Bag 1 BAG IVPB SCH ×4 (00:36→23:26)
[2018-04-16 05:32] LABS: Anion Gap 13 mmol/L (10-20); BUN (Urea Nitrogen) 23 mg/dL (8.4-25.7); Calc. Creatinine Clearance 64 mL/min (70-130); Calcium 8.3 mg/dL (7.8-10.44); Carbon Dioxide 19 mmol/L (23-31); Chloride 104 mmol/L (98-107); Estimated GFR-MDRD 39; Glucose 103 mg/dL (83-110); Potassium 3.9 mmol/L (3.5-5.1); Sodium 132 mmol/L (136-145)
[2018-04-16 05:40] LABS: Vancomycin, Trough 38.9 ug/mL
[2018-04-16 06:52] LABS: Hemoglobin 10.8 g/dL (14.0-18.0); Mean Corpuscular HGB CONC 31.6 g/dL (32.0-36.0); Mean Corpuscular Hemoglobin 32.9 pg (27.0-31.0); Mean Platelet Volume 9.7 fL (7.4-10.4); Platelet Count 139 thou/uL (130-400); RBC Distribution Width 15.2 % (11.5-14.5); Red Blood Cell (RBC) Count 3.29 mill/uL (4.70-6.10); White Blood Cell (WBC) Count 18.3 thou/uL (4.8-10.8)
[2018-04-16 06:53] LABS: Band 44 % (5-11); Eosinophils 1 % (0-10); Lymphocytes 11 % (21-51); MDiff Complete? YES; Metamyelocyte 1 % (0-0); Monocytes 9 % (0-10); Neutrophil 34 % (42-75)
[2018-04-16] MEDS: Sacubitril 49 MG/Valsartan 51 MG TABLET PO SCH ×2 (08:38→21:17)
[2018-04-16] MEDS: Bupropion 150 MG XL TAB PO SCH (08:38)
[2018-04-16] MEDS: Ferrous Sulfate 325 MG TAB PO SCH (08:39)
[2018-04-16] MEDS: Folic Acid 1 MG TAB PO SCH (08:39)
[2018-04-16] MEDS: Enoxaparin Sodium 40 MG/0.4 ML SYRINGE SC SCH (08:39)
[2018-04-16] MEDS: Carvedilol 6.25 MG TAB PO SCH ×2 (08:39→16:22)
[2018-04-16] MEDS: Potassium Chloride 20 MEQ TAB PO SCH (08:39)
[2018-04-16] MEDS: Famotidine 20 MG TAB PO SCH ×2 (08:39→20:34)
[2018-04-16] MEDS: Furosemide 40 MG TAB PO SCH ×2 (08:40→20:34)
[2018-04-16] MEDS: Gabapentin 300 MG CAP PO SCH ×3 (08:40→20:34)
--- NOTE | 2018-04-16 14:33 | PDOC.PN ---
- Subjective Encounter Start Date: 04/16/18 Encounter Start Time: 14:30 Subjective: feels better but depressed .weakness improving - Objective Resuscitation Status: Resuscitation Status FULL:Full Resuscitation MAR Reviewed: Yes Vital Signs & Weight: Vital Signs (12 hours) Temp Pulse Resp BP BP BP Pulse Ox 04/16/18 11:34 99.1 F 77 18 111/67 90 L 04/16/18 08:39 130/73 04/16/18 08:00 98.6 F 79 18 130/73 91 L 04/16/18 04:00 99.6 F 85 22 H 115/78 93 L 04/16/18 03:00 99.6 F 85 22 H 115/78 93 L Weight Admit Weight 272 lb 12.8 oz Weight 272 lb 12.8 oz I&O: 04/15/18 04/16/18 04/17/18 06:59 06:59 06:59 Intake Total 300 Balance 300 Result Diagrams: 04/17/18 03:34 04/16/18 04:56 Additional Labs: Accuchecks 04/16/18 04/15/18 04/15/18 11:34 19:41 17:11 POC Glucose 105 146 H 148 H 04/15/18 08:17 POC Glucose 89 Microbiology 04/14/18 11:51 Venous blood - Right Hand Blood Culture - Preliminary Specimen has been received and culture in progress. No Growth to date. 04/14/18 11:45 Urine voided Urine Culture - Preliminary Klebsiella pneumoniae ssp pneu 04/14/18 11:25 Venous blood - Left Arm Blood Culture - Preliminary Specimen has been received and culture in progress. No Growth to date. Laboratory Tests 04/14/18 04/14/18 04/14/18 11:51 11:51 16:33 Creatinine 1.11 Lactic Acid 1.6 1.6 04/15/18 04/16/18 03:30 04:56 Creatinine 1.67 H 1.72 H Lactic Acid Phys Exam - Physical Examination Constitutional: NAD HEENT: PERRLA, moist MMs, sclera anicteric, oral pharynx no lesions Neck: no nodes, no JVD, supple, full ROM Respiratory: no wheezing, no rales, no rhonchi, clear to auscultation bilateral Cardiovascular: RRR, no significant murmur, no rub Gastrointestinal: soft, non-tender, no distention, positive bowel sounds Musculoskeletal: no edema, pulses present Neurological: non-focal, normal sensation, moves all 4 limbs Psychiatric: normal affect, A&O x 3 Skin: no rash Dx/Plan (1) Sepsis Code(s): A41.9 - SEPSIS, UNSPECIFIED ORGANISM Status: Acute (2) UTI (urinary tract infection) Status: Acute (3) Lower extremity ulceration Code(s): L97.909 - NON-PRS CHRONIC ULC UNSP PRT OF UNSP LOW LEG W UNSP SEVERITY Status: Acute (4) CKD (chronic kidney disease) stage 3, GFR 30-59 ml/min Status: Acute (5) Cardiomyopathy Code(s): I42.9 - CARDIOMYOPATHY, UNSPECIFIED Status: Chronic Qualifiers: Cardiomyopathy type: dilated Qualified Code(s): I42.0 - Dilated cardiomyopathy - Plan continue antibiotics, PT/OT, respiratory therapy, incentive spirometry, out of bed/ambulate, DVT proph w/SCDs clinically better.monica source urine w [email or web address] Abdo/pelvis w/o absce -: home meds as below -: OT.PT.monica for DC -: cont wellbutrin for depression -: Hemodynamically stable * . Review of Systems - Review of Systems Constitutional: weakness, malaise. negative: fever, chills, sweats, other ENT: negative: Ear Pain, Ear Discharge, Nose Pain, Nose Discharge, Nose Congestion, Mouth Pain, Mouth Swelling, Throat Pain, Throat Swelling, Other Respiratory: negative: Cough, Dry, Shortness of Breath, Hemoptysis, SOB with Excertion, Pleuritic Pain, Sputum, Wheezing Cardiovascular: negative: chest pain, palpitations, orthopnea, paroxysmal nocturnal dyspnea, edema, light headedness, other Gastrointestinal: negative: Nausea, Vomiting, Abdominal Pain, Diarrhea, Constipation, Melena, Hematochezia, Other Genitourinary: negative: Dysuria, Frequency, Incontinence, Hematuria, Retention , Other Musculoskeletal: negative: Neck Pain, Shoulder Pain, Arm Pain, Back Pain, Hand Pain, Leg Pain, Foot Pain, Other Skin: negative: Rash, Lesions, [place], Bruising, Other Neurological: negative: Weakness, Numbness, Incoordination, Change in Speech, Confusion, Seizures, Other - Medications/Allergies Allergies/Adverse Reactions: Allergies Allergy/AdvReac Type Severity Reaction Status Date / Time No Known Drug Allergies Allergy Verified 02/19/15 15:53 Medications: Current Medications Acetaminophen (Tylenol) 650 mg PO Q4H PRN PRN Reason: Headache/Fever/Mild Pain (1-3) Last Admin: 04/15/18 17:23 Dose: 650 mg Hydrocodone Bitart/Acetaminophen ([place] 5/325) 1 tab PO Q4H PRN PRN Reason: Moderate Pain (4-6) Last Admin: 04/15/18 11:57 Dose: 1 tab Benzonatate (Tessalon) 100 mg PO Q4H PRN PRN Reason: Cough Bisacodyl (Dulcolax) 10 mg PO DAILYPRN PRN PRN Reason: Constipation Bupropion HCl (Wellbutrin Xl) 150 mg PO DAILY [facility] Last Admin: 04/16/18 08:38 Dose: 150 mg Calcium Carbonate (Tums) 1,000 mg PO Q4H PRN PRN Reason: Heartburn or Indigestion Carvedilol (Coreg) 6.25 mg PO BID-[facility] Last Admin: 04/16/18 08:39 Dose: 6.25 mg Clonidine (Catapres) 0.1 mg PO Q4H PRN PRN Reason: Systolic BP > 160 Enoxaparin Sodium (Lovenox) 40 mg SC 0900 [facility] Last Admin: 04/16/18 08:39 Dose: 40 mg Famotidine (Pepcid) 20 mg PO BID [facility] Last Admin: 04/16/18 08:39 Dose: 20 mg Ferrous Sulfate (Feosol) 325 mg PO DAILY [facility] Last Admin: 04/16/18 08:39 Dose: 325 mg Fluconazole (Diflucan) 150 mg PO Q3DAYS [facility] Folic Acid (Folvite) 1 mg PO DAILY [facility] Last Admin: 04/16/18 08:39 Dose: 1 mg Furosemide (Lasix) 40 mg PO BID [facility] Last Admin: 04/16/18 08:40 Dose: 40 mg Gabapentin (Neurontin) 300 mg PO TID [facility] Last Admin: 04/16/18 08:40 Dose: 300 mg Guaifenesin (Robitussin Sf) 200 mg PO Q4H PRN PRN Reason: Cough Hydralazine HCl (Apresoline) 10 mg SLOW IVP Q4H PRN PRN Reason: Systolic BP > 170 Meropenem 1 gm/ Device 50 mls @ 100 mls/hr IVPB 0800,1600,2359 [facility] Last Admin: 04/16/18 08:38 Dose: 50 mls Vancomycin HCl 1.75 gm/ Sodium (Chloride) 500 mls @ 250 mls/hr IVPB 0600,1800 [facility] Loratadine (Claritin) 10 mg PO DAILYPRN PRN PRN Reason: Sinus Symptoms Miscellaneous Medication (Pharmacy To Dose) 1 each IVPB PRN PRN PRN Reason: . Nitroglycerin (Nitrostat) 0.4 mg SL Q5MIN PRN PRN Reason: Chest Pain Ondansetron HCl (Zofran) 4 mg IVP Q6H PRN PRN Reason: Nausea/Vomiting Potassium Chloride (K-Dur) 20 meq PO DAILY [facility] Last Admin: 04/16/18 08:39 Dose: 20 meq Sacubitril/Valsartan (Entresto 49 Mg-51 Mg Tablet) 1 tab PO BID [facility] Last Admin: 04/16/18 08:38 Dose: 1 tab Senna/Docusate Sodium (Senokot S) 2 tab PO BID PRN PRN Reason: Constipation Sodium Chloride (Flush - Normal Saline) 10 ml IVF Q12HR PRN PRN Reason: Saline Flush Tramadol HCl (Ultram) 50 mg PO Q4H PRN PRN Reason: Moderate Pain (4-6) Last Admin: 04/15/18 15:04 Dose: 50 mg
[2018-04-16 18:25] LABS: Vancomycin, Random 28.1 ug/mL (See Comment)
[2018-04-17 05:57] LABS: Band 31 % (5-11); Hemoglobin 11.1 g/dL (14.0-18.0); Lymphocytes 19 % (21-51); MDiff Complete? YES; Mean Corpuscular Hemoglobin 33.2 pg (27.0-31.0); Monocytes 11 % (0-10); Myelocyte 1 % (0-0); Neutrophil 38 % (42-75); Platelet Count 121 thou/uL (130-400); RBC Distribution Width 15.2 % (11.5-14.5); Red Blood Cell (RBC) Count 3.35 mill/uL (4.70-6.10); White Blood Cell (WBC) Count 9.4 thou/uL (4.8-10.8)
[2018-04-17] MEDS: Carvedilol 6.25 MG TAB PO SCH ×2 (09:32→15:53)
[2018-04-17] MEDS: Folic Acid 1 MG TAB PO SCH (09:34)
[2018-04-17] MEDS: Ferrous Sulfate 325 MG TAB PO SCH (09:34)
[2018-04-17] MEDS: Enoxaparin Sodium 40 MG/0.4 ML SYRINGE SC SCH (09:34)
[2018-04-17] MEDS: Potassium Chloride 20 MEQ TAB PO SCH (09:34)
[2018-04-17] MEDS: Furosemide 40 MG TAB PO SCH ×2 (09:34→21:34)
[2018-04-17] MEDS: MEROPENEM 1 GM/50 ML 1 GM in Premix Bag 1 BAG IVPB SCH (09:34)
[2018-04-17] MEDS: Fluconazole 100 MG TAB PO SCH (09:35)
[2018-04-17] MEDS: Gabapentin 300 MG CAP PO SCH ×3 (09:35→21:34)
[2018-04-17] MEDS: Famotidine 20 MG TAB PO SCH ×2 (09:35→21:38)
[2018-04-17] MEDS: Sacubitril 49 MG/Valsartan 51 MG TABLET PO SCH ×2 (09:35→21:37)
[2018-04-17] MEDS: Bupropion 150 MG XL TAB PO SCH (09:44)
[2018-04-17 09:50] LABS: Vancomycin, Random 19.7 ug/mL (See Comment)
[2018-04-17] MEDS ORDERED: Vancomycin HCl 1.25 GM in Sodium Chloride 0.9% 250 ML 250 ML IVPB SCH (12:00)
--- NOTE | 2018-04-17 13:43 | PRG ---
DATE OF SERVICE: 04/16/2018 SUBJECTIVE: Feeling better, ate his lunch well. No headaches, visual symptoms, sore throat, odynoph agia, dysphagia, no dyspnea, chest pain, abdominal pain. Voiding without difficulty. OBJECTIVE: VITAL SINGS: His T-max 99.3, blood pressure 130/70, pulse 85, respirations 18, O2 sat 93%-94%. GENERAL: More much more alert than previously. HEENT: Ocular movements conjugate. LUNGS: Clear. HEART: S1, S2, regular rate. ABDOMEN: Soft, distended or tender. LABORATORY: No evidence of bladder distention. White cell count is down to 9.4, hemoglobin 11, plat elets 121, 38% neutrophils, 31% bands. Chemistry with a creatinine of 1.72, which is stable from pas t visit, but is elevated nonetheless, Microbiology with Klebsiella pneumoniae from the urine culture with a very broad susceptibility profile except for nitrofurantoin. Reports include an abdomen and pelvis CT with cholelithiasis, a complex lesion, posterior left kidney, probably a complex cyst, patric nephric stranding, nonspecific. No evidence of hydronephrosis and mild urinary bladder wall thickeni ng. ASSESSMENT AND DISCUSSION: History of ischemic cardiomyopathy, benign prostatic hypertrophy with are as of obstruction in the outflow tract with hydronephrosis in the past. Stasis dermatitis, biopsy pr oven with ulceration, left leg which is chronic with no evidence of cellulitis at this time and then weakness, chills, change in mental status with likely sepsis secondary to urinary tract infection. Blood cultures remain negative. I would treat this urinary pathogen and consider switching to oral q uinolone for discharge planning. Treat for a protracted period of time assuming pyelonephritis at ast 4 weeks. Verify adequate post-void residual to rule out a persistence of urinary retention altho ugh the imaging findings indicate improvement. He will also need to continue wound care management a nd compression management of the extremity.
[2018-04-17] MEDS ORDERED: Vancomycin HCl 1.75 GM in Sodium Chloride 0.9% 500 ML IVPB SCH (18:00)
[2018-04-17] MEDS: Cipro 250 MG TAB PO SCH (21:27)
[2018-04-17] MEDS: Acetaminophen 325 MG TAB PO PRN (21:35)
[2018-04-17] MEDS: traMADol HCl 50 MG TAB PO PRN (21:35)
[2018-04-18] MEDS: Cipro 250 MG TAB PO SCH ×2 (05:11→21:47)
[2018-04-18] MEDS: Carvedilol 6.25 MG TAB PO SCH ×2 (08:31→17:06)
[2018-04-18] MEDS: Potassium Chloride 20 MEQ TAB PO SCH (08:31)
[2018-04-18] MEDS: Gabapentin 300 MG CAP PO SCH ×3 (08:31→23:10)
[2018-04-18] MEDS: Famotidine 20 MG TAB PO SCH ×2 (08:31→21:47)
[2018-04-18] MEDS: Fluconazole 100 MG TAB PO SCH (08:31)
[2018-04-18] MEDS: Folic Acid 1 MG TAB PO SCH (08:31)
[2018-04-18] MEDS: Furosemide 40 MG TAB PO SCH ×2 (08:31→21:47)
[2018-04-18] MEDS: Ferrous Sulfate 325 MG TAB PO SCH (08:31)
[2018-04-18] MEDS: Bupropion 150 MG XL TAB PO SCH (08:32)
[2018-04-18] MEDS: Sacubitril 49 MG/Valsartan 51 MG TABLET PO SCH ×2 (08:32→21:47)
[2018-04-18] MEDS: Enoxaparin Sodium 40 MG/0.4 ML SYRINGE SC SCH (08:32)
--- NOTE | 2018-04-18 14:39 | PDOC.PN ---
- Subjective Encounter Start Date: 04/18/18 Encounter Start Time: 14:37 Subjective: feels well. no new complaint -: appetite good.walking around -: no F/C/N/V/D - Objective Resuscitation Status: Resuscitation Status FULL:Full Resuscitation MAR Reviewed: Yes Vital Signs & Weight: Vital Signs (12 hours) Temp Pulse Resp BP BP BP Pulse Ox 04/18/18 11:47 97.8 F 64 16 118/70 93 L 04/18/18 08:32 96 04/18/18 08:31 112/79 04/18/18 08:00 98.1 F 80 18 112/79 96 04/18/18 04:00 98.1 F 68 18 143/80 H 99 Weight Admit Weight 272 lb 12.8 oz Weight 272 lb 12.8 oz I&O: 04/17/18 04/18/18 04/19/18 06:59 06:59 06:59 Intake Total 300 1800 Balance 300 1800 Result Diagrams: 04/17/18 03:34 04/16/18 04:56 Additional Labs: Microbiology 04/14/18 11:45 Urine voided Urine Culture - Final Klebsiella pneumoniae ssp pneu 04/14/18 11:51 Venous blood - Right Hand Blood Culture - Preliminary NO GROWTH AT 48 HOURS 04/14/18 11:25 Venous blood - Left Arm Blood Culture - Preliminary NO GROWTH AT 48 HOURS Phys Exam - Physical Examination Constitutional: NAD HEENT: PERRLA, moist MMs, sclera anicteric, oral pharynx no lesions Neck: no nodes, no JVD, supple, full ROM Respiratory: no wheezing, no rales, no rhonchi, clear to auscultation bilateral Cardiovascular: RRR, no significant murmur, no rub Gastrointestinal: soft, non-tender, no distention, positive bowel sounds Musculoskeletal: no edema, pulses present Neurological: non-focal, normal sensation, moves all 4 limbs Psychiatric: normal affect, A&O x 3 Skin: no rash Dx/Plan (1) Sepsis Code(s): A41.9 - SEPSIS, UNSPECIFIED ORGANISM Status: Acute (2) UTI (urinary tract infection) Status: Acute (3) Lower extremity ulceration Code(s): L97.909 - NON-PRS CHRONIC ULC UNSP PRT OF UNSP LOW LEG W UNSP SEVERITY Status: Chronic (4) CKD (chronic kidney disease) stage 3, GFR 30-59 ml/min Status: Acute (5) Cardiomyopathy Code(s): I42.9 - CARDIOMYOPATHY, UNSPECIFIED Status: Chronic Qualifiers: Cardiomyopathy type: dilated Qualified Code(s): I42.0 - Dilated cardiomyopathy - Plan continue antibiotics, PT/OT, DVT proph w/SCDs clinically better & ready to transition to next level of care -: requesting rehab as he lives alone and still very weak -: cont empiric Abx. monica source of infection only urine.klebsiella Madrigal Sens -: am labs * . Review of Systems - Review of Systems Constitutional: weakness. negative: fever, chills, sweats, malaise, other ENT: negative: Ear Pain, Ear Discharge, Nose Pain, Nose Discharge, Nose Congestion, Mouth Pain, Mouth Swelling, Throat Pain, Throat Swelling, Other Respiratory: negative: Cough, Dry, Shortness of Breath, Hemoptysis, SOB with Excertion, Pleuritic Pain, Sputum, Wheezing Cardiovascular: negative: chest pain, palpitations, orthopnea, paroxysmal nocturnal dyspnea, edema, light headedness, other Gastrointestinal: negative: Nausea, Vomiting, Abdominal Pain, Diarrhea, Constipation, Melena, Hematochezia, Other Genitourinary: negative: Dysuria, Frequency, Incontinence, Hematuria, Retention , Other Musculoskeletal: negative: Neck Pain, Shoulder Pain, Arm Pain, Back Pain, Hand Pain, Leg Pain, Foot Pain, Other Skin: negative: Rash, Lesions, [place], Bruising, Other Neurological: negative: Weakness, Numbness, Incoordination, Change in Speech, Confusion, Seizures, Other - Medications/Allergies Allergies/Adverse Reactions: Allergies Allergy/AdvReac Type Severity Reaction Status Date / Time No Known Drug Allergies Allergy Verified 02/19/15 15:53 Medications: Current Medications Acetaminophen (Tylenol) 650 mg PO Q4H PRN PRN Reason: Headache/Fever/Mild Pain (1-3) Last Admin: 04/17/18 21:35 Dose: 650 mg Hydrocodone Bitart/Acetaminophen ([place] 5/325) 1 tab PO Q4H PRN PRN Reason: Moderate Pain (4-6) Last Admin: 04/15/18 11:57 Dose: 1 tab Benzonatate (Tessalon) 100 mg PO Q4H PRN PRN Reason: Cough Bisacodyl (Dulcolax) 10 mg PO DAILYPRN PRN PRN Reason: Constipation Bupropion HCl (Wellbutrin Xl) 150 mg PO DAILY [facility] Last Admin: 04/18/18 08:32 Dose: 150 mg Calcium Carbonate (Tums) 1,000 mg PO Q4H PRN PRN Reason: Heartburn or Indigestion Carvedilol (Coreg) 6.25 mg PO BID-[facility] Last Admin: 04/18/18 08:31 Dose: 6.25 mg Ciprofloxacin (Cipro) 250 mg PO BID@0600,2000 [facility] Last Admin: 04/18/18 05:11 Dose: 250 mg Clonidine (Catapres) 0.1 mg PO Q4H PRN PRN Reason: Systolic BP > 160 Enoxaparin Sodium (Lovenox) 40 mg SC 0900 [facility] Last Admin: 04/18/18 08:32 Dose: 40 mg Famotidine (Pepcid) 20 mg PO BID [facility] Last Admin: 04/18/18 08:31 Dose: 20 mg Ferrous Sulfate (Feosol) 325 mg PO DAILY [facility] Last Admin: 04/18/18 08:31 Dose: 325 mg Fluconazole (Diflucan) 150 mg PO Q3DAYS [facility] Last Admin: 04/18/18 08:31 Dose: 150 mg Folic Acid (Folvite) 1 mg PO DAILY [facility] Last Admin: 04/18/18 08:31 Dose: 1 mg Furosemide (Lasix) 40 mg PO BID [facility] Last Admin: 04/18/18 08:31 Dose: 40 mg Gabapentin (Neurontin) 300 mg PO TID [facility] Last Admin: 04/18/18 08:31 Dose: 300 mg Guaifenesin (Robitussin Sf) 200 mg PO Q4H PRN PRN Reason: Cough Hydralazine HCl (Apresoline) 10 mg SLOW IVP Q4H PRN PRN Reason: Systolic BP > 170 Loratadine (Claritin) 10 mg PO DAILYPRN PRN PRN Reason: Sinus Symptoms Nitroglycerin (Nitrostat) 0.4 mg SL Q5MIN PRN PRN Reason: Chest Pain Ondansetron HCl (Zofran) 4 mg IVP Q6H PRN PRN Reason: Nausea/Vomiting Potassium Chloride (K-Dur) 20 meq PO DAILY [facility] Last Admin: 04/18/18 08:31 Dose: 20 meq Sacubitril/Valsartan (Entresto 49 Mg-51 Mg Tablet) 1 tab PO BID [facility] Last Admin: 04/18/18 08:32 Dose: 1 tab Senna/Docusate Sodium (Senokot S) 2 tab PO BID PRN PRN Reason: Constipation Sodium Chloride (Flush - Normal Saline) 10 ml IVF Q12HR PRN PRN Reason: Saline Flush Tramadol HCl (Ultram) 50 mg PO Q4H PRN PRN Reason: Moderate Pain (4-6) Last Admin: 04/17/18 21:35 Dose: 50 mg
[2018-04-18] MEDS ORDERED: ALPRAZolam 0.25 MG TAB PO PRN (14:43)
[2018-04-18] MEDS ORDERED: HYDROcodone/Acetaminophen 5/325 mg Tablet PO PRN (14:44)
[2018-04-18] MEDS ORDERED: traMADol HCl 50 MG TAB PO PRN (14:45)
[2018-04-19] MEDS: Cipro 250 MG TAB PO SCH ×2 (05:41→19:57)
[2018-04-19 06:59] LABS: Hemoglobin 11.2 g/dL (14.0-18.0); Mean Corpuscular HGB CONC 31.4 g/dL (32.0-36.0); Mean Corpuscular Hemoglobin 32.5 pg (27.0-31.0); Mean Platelet Volume 10.1 fL (7.4-10.4); Platelet Count 107 thou/uL (130-400); RBC Distribution Width 14.9 % (11.5-14.5); Red Blood Cell (RBC) Count 3.46 mill/uL (4.70-6.10); White Blood Cell (WBC) Count 4.4 thou/uL (4.8-10.8)
[2018-04-19 08:18] LABS: MDiff Complete? YES; PLT Morphology Comment Appears Decreased; Polychromasia SLIGHT = 2-3 cells (100X) (0-2/hpf); Toxic Granulation SLIGHT
[2018-04-19 08:23] LABS: Band 13 % (5-11)
[2018-04-19 08:24] LABS: Eosinophils 1 % (0-10); Metamyelocyte 2 % (0-0); Myelocyte 4 % (0-0); Reactive Lymphocytes 2 % (0-10)
[2018-04-19 08:32] LABS: Lymphocytes 38 % (21-51); Monocytes 20 % (0-10); Neutrophil 20 % (42-75)
[2018-04-19] MEDS: Sacubitril 49 MG/Valsartan 51 MG TABLET PO SCH ×2 (09:16→19:57)
[2018-04-19] MEDS: Folic Acid 1 MG TAB PO SCH (09:16)
[2018-04-19] MEDS: Potassium Chloride 20 MEQ TAB PO SCH (09:16)
[2018-04-19] MEDS: Ferrous Sulfate 325 MG TAB PO SCH (09:16)
[2018-04-19] MEDS: Furosemide 40 MG TAB PO SCH ×2 (09:16→19:57)
[2018-04-19] MEDS: Famotidine 20 MG TAB PO SCH ×2 (09:16→19:57)
[2018-04-19] MEDS: Bupropion 150 MG XL TAB PO SCH (09:16)
[2018-04-19] MEDS: Enoxaparin Sodium 40 MG/0.4 ML SYRINGE SC SCH (09:17)
[2018-04-19] MEDS: Carvedilol 6.25 MG TAB PO SCH ×2 (09:22→17:19)
[2018-04-19 09:33] LABS: Chloride 100 mmol/L (98-107); Potassium 3.8 mmol/L (3.5-5.1); Sodium 133 mmol/L (136-145)
[2018-04-19 09:34] LABS: Calcium 8.7 mg/dL (7.8-10.44); Glucose 99 mg/dL (83-110)
[2018-04-19 09:36] LABS: Anion Gap 17 mmol/L (10-20); Carbon Dioxide 20 mmol/L (23-31)
[2018-04-19 09:38] LABS: BUN (Urea Nitrogen) 28 mg/dL (8.4-25.7); Calc. Creatinine Clearance 71 mL/min (70-130); Estimated GFR-MDRD 44
[2018-04-19] MEDS: Gabapentin 300 MG CAP PO SCH ×3 (10:59→19:57)
--- NOTE | 2018-04-19 14:38 | PDOC.PN ---
- Subjective Encounter Start Date: 04/19/18 Encounter Start Time: 14:37 Subjective: feels well. no new complaints - Objective Resuscitation Status: Resuscitation Status FULL:Full Resuscitation MAR Reviewed: Yes Vital Signs & Weight: Vital Signs (12 hours) Temp Pulse Resp BP BP BP Pulse Ox 04/19/18 11:33 97.5 F L 100 20 119/83 97 04/19/18 09:22 131/66 04/19/18 07:52 98.0 F 74 20 131/66 97 04/19/18 04:00 97.7 F 65 18 107/64 95 Weight Admit Weight 272 lb 12.8 oz Weight 272 lb 12.8 oz I&O: 04/18/18 04/19/18 04/20/18 06:59 06:59 06:59 Intake Total 1800 480 Balance 1800 480 Result Diagrams: 04/19/18 06:17 04/19/18 06:17 Additional Labs: Microbiology 04/14/18 11:45 Urine voided Urine Culture - Final Klebsiella pneumoniae ssp pneu 04/14/18 11:51 Venous blood - Right Hand Blood Culture - Preliminary NO GROWTH AT 48 HOURS 04/14/18 11:25 Venous blood - Left Arm Blood Culture - Preliminary NO GROWTH AT 48 HOURS Laboratory Tests 04/14/18 04/14/18 04/15/18 11:51 11:51 03:30 WBC 14.0 H Creatinine 1.11 1.67 H 04/15/18 04/16/18 04/16/18 03:50 04:56 04:56 WBC 22.2 H 18.3 H Creatinine 1.72 H 04/17/18 04/19/18 04/19/18 03:34 06:17 06:17 WBC 9.4 4.4 L Creatinine 1.54 H Phys Exam - Physical Examination Constitutional: NAD HEENT: PERRLA, moist MMs, sclera anicteric, oral pharynx no lesions Neck: no nodes, no JVD, supple, full ROM Respiratory: no wheezing, no rales, no rhonchi, clear to auscultation bilateral Cardiovascular: RRR, no significant murmur, no rub Gastrointestinal: soft, non-tender, no distention, positive bowel sounds Musculoskeletal: no edema, pulses present Neurological: non-focal, normal sensation, moves all 4 limbs Psychiatric: normal affect, A&O x 3 Skin: no rash Dx/Plan (1) Sepsis Code(s): A41.9 - SEPSIS, UNSPECIFIED ORGANISM Status: Acute (2) UTI (urinary tract infection) Status: Acute (3) Lower extremity ulceration Code(s): L97.909 - NON-PRS CHRONIC ULC UNSP PRT OF UNSP LOW LEG W UNSP SEVERITY Status: Chronic (4) CKD (chronic kidney disease) stage 3, GFR 30-59 ml/min Status: Acute (5) Cardiomyopathy Code(s): I42.9 - CARDIOMYOPATHY, UNSPECIFIED Status: Chronic Qualifiers: Cardiomyopathy type: dilated Qualified Code(s): I42.0 - Dilated cardiomyopathy - Plan continue antibiotics, respiratory therapy, incentive spirometry, out of bed/ ambulate, DVT proph w/SCDs DC to rehab on PO quinolone when accepted -: OK to DC from medical perspective -: cont home meds as below * . Review of Systems - Review of Systems Constitutional: weakness, malaise. negative: fever, chills, sweats, other ENT: negative: Ear Pain, Ear Discharge, Nose Pain, Nose Discharge, Nose Congestion, Mouth Pain, Mouth Swelling, Throat Pain, Throat Swelling, Other Respiratory: negative: Cough, Dry, Shortness of Breath, Hemoptysis, SOB with Excertion, Pleuritic Pain, Sputum, Wheezing Cardiovascular: negative: chest pain, palpitations, orthopnea, paroxysmal nocturnal dyspnea, edema, light headedness, other Gastrointestinal: negative: Nausea, Vomiting, Abdominal Pain, Diarrhea, Constipation, Melena, Hematochezia, Other Genitourinary: negative: Dysuria, Frequency, Incontinence, Hematuria, Retention , Other Musculoskeletal: negative: Neck Pain, Shoulder Pain, Arm Pain, Back Pain, Hand Pain, Leg Pain, Foot Pain, Other Skin: negative: Rash, Lesions, [place], Bruising, Other Neurological: negative: Weakness, Numbness, Incoordination, Change in Speech, Confusion, Seizures, Other - Medications/Allergies Allergies/Adverse Reactions: Allergies Allergy/AdvReac Type Severity Reaction Status Date / Time No Known Drug Allergies Allergy Verified 02/19/15 15:53 Medications: Current Medications Acetaminophen (Tylenol) 650 mg PO Q4H PRN PRN Reason: Headache/Fever/Mild Pain (1-3) Last Admin: 04/17/18 21:35 Dose: 650 mg Hydrocodone Bitart/Acetaminophen ([place] 5/325) 1 tab PO Q4H PRN PRN Reason: Moderate to Severe Pain (6-10) Alprazolam (Xanax) 0.25 mg PO BIDPRN PRN PRN Reason: Anxiety Benzonatate (Tessalon) 100 mg PO Q4H PRN PRN Reason: Cough Bisacodyl (Dulcolax) 10 mg PO DAILYPRN PRN PRN Reason: Constipation Bupropion HCl (Wellbutrin Xl) 150 mg PO DAILY [facility] Last Admin: 04/19/18 09:16 Dose: 150 mg Calcium Carbonate (Tums) 1,000 mg PO Q4H PRN PRN Reason: Heartburn or Indigestion Carvedilol (Coreg) 6.25 mg PO BID-[facility] Last Admin: 04/19/18 09:22 Dose: 6.25 mg Ciprofloxacin (Cipro) 250 mg PO BID@0600,2000 [facility] Last Admin: 04/19/18 05:41 Dose: 250 mg Clonidine (Catapres) 0.1 mg PO Q4H PRN PRN Reason: Systolic BP > 160 Enoxaparin Sodium (Lovenox) 40 mg SC 0900 [facility] Last Admin: 04/19/18 09:17 Dose: Not Given Famotidine (Pepcid) 20 mg PO BID [facility] Last Admin: 04/19/18 09:16 Dose: 20 mg Ferrous Sulfate (Feosol) 325 mg PO DAILY [facility] Last Admin: 04/19/18 09:16 Dose: 325 mg Fluconazole (Diflucan) 150 mg PO Q3DAYS [facility] Last Admin: 04/18/18 08:31 Dose: 150 mg Folic Acid (Folvite) 1 mg PO DAILY [facility] Last Admin: 04/19/18 09:16 Dose: 1 mg Furosemide (Lasix) 40 mg PO BID [facility] Last Admin: 04/19/18 09:16 Dose: 40 mg Gabapentin (Neurontin) 300 mg PO TID [facility] Last Admin: 04/19/18 10:59 Dose: Not Given Guaifenesin (Robitussin Sf) 200 mg PO Q4H PRN PRN Reason: Cough Hydralazine HCl (Apresoline) 10 mg SLOW IVP Q4H PRN PRN Reason: Systolic BP > 170 Loratadine (Claritin) 10 mg PO DAILYPRN PRN PRN Reason: Sinus Symptoms Nitroglycerin (Nitrostat) 0.4 mg SL Q5MIN PRN PRN Reason: Chest Pain Ondansetron HCl (Zofran) 4 mg IVP Q6H PRN PRN Reason: Nausea/Vomiting Potassium Chloride (K-Dur) 20 meq PO DAILY [facility] Last Admin: 04/19/18 09:16 Dose: 20 meq Sacubitril/Valsartan (Entresto 49 Mg-51 Mg Tablet) 1 tab PO BID [facility] Last Admin: 04/19/18 09:16 Dose: 1 tab Senna/Docusate Sodium (Senokot S) 2 tab PO BID PRN PRN Reason: Constipation Sodium Chloride (Flush - Normal Saline) 10 ml IVF Q12HR PRN PRN Reason: Saline Flush Tramadol HCl (Ultram) 50 mg PO Q4H PRN PRN Reason: Moderate to Severe Pain (6-10)
[2018-04-20] MEDS: Cipro 250 MG TAB PO SCH (05:26)
[2018-04-20] MEDS: Fluconazole 100 MG TAB PO SCH (08:21)
[2018-04-20] MEDS: Potassium Chloride 20 MEQ TAB PO SCH (08:22)
[2018-04-20] MEDS: Famotidine 20 MG TAB PO SCH (08:22)
[2018-04-20] MEDS: Furosemide 40 MG TAB PO SCH (08:22)
[2018-04-20] MEDS: Carvedilol 6.25 MG TAB PO SCH (08:23)
[2018-04-20] MEDS: Gabapentin 300 MG CAP PO SCH (08:23)
[2018-04-20] MEDS: Ferrous Sulfate 325 MG TAB PO SCH (08:23)
[2018-04-20] MEDS: Sacubitril 49 MG/Valsartan 51 MG TABLET PO SCH (08:24)
[2018-04-20] MEDS: Bupropion 150 MG XL TAB PO SCH (08:24)
[2018-04-20] MEDS: Folic Acid 1 MG TAB PO SCH (08:25)
[2018-04-20] MEDS: Enoxaparin Sodium 40 MG/0.4 ML SYRINGE SC SCH (08:27)
[2018-04-20 08:30] LABS: Anion Gap 14 mmol/L (10-20); BUN (Urea Nitrogen) 33 mg/dL (8.4-25.7); Calc. Creatinine Clearance 56 mL/min (70-130); Calcium 9.1 mg/dL (7.8-10.44); Carbon Dioxide 27 mmol/L (23-31); Chloride 100 mmol/L (98-107); Estimated GFR-MDRD 33; Glucose 104 mg/dL (83-110); Potassium 4.6 mmol/L (3.5-5.1); Sodium 136 mmol/L (136-145)
[2018-04-20 08:55] LABS: Band 10 % (5-11); Eosinophils 1 % (0-10); Hemoglobin 11.7 g/dL (14.0-18.0); Lymphocytes 47 % (21-51); MDiff Complete? YES; Macrocytosis SLIGHT = 6-15 cells (100X) (0-5/hpf); Mean Corpuscular HGB CONC 31.6 g/dL (32.0-36.0); Mean Corpuscular Hemoglobin 32.6 pg (27.0-31.0); Mean Platelet Volume 10.2 fL (7.4-10.4); Metamyelocyte 1 % (0-0); Monocytes 18 % (0-10); Myelocyte 1 % (0-0); Neutrophil 21 % (42-75); PLT Morphology Comment Appears Adequate; Platelet Count 139 thou/uL (130-400); RBC Distribution Width 15.1 % (11.5-14.5); Reactive Lymphocytes 1 % (0-10); White Blood Cell (WBC) Count 5.3 thou/uL (4.8-10.8)
[2018-04-20 11:19] VITALS: TEMP 98.9
[2018-04-20 14:48] VITALS: BP 121/81
== END 2018-04-20 14:43 | disposition home health service (06) | DRG 872 ==
LOC: ERS 11:00 → T4-A 15:27
PROVIDERS: ADMIT Internal Medicine; ATTEND Internal Medicine
DX: A41.9 Sepsis, unspecified organism (principal); N39.0 Urinary tract infection, site not specified; L03.116 Cellulitis of left lower limb; I50.42 Chronic combined systolic (congestive) and diastolic (congestive) heart failure; L97.929 Non-pressure chronic ulcer of unspecified part of left lower leg with unspecified severity; N13.8 Other obstructive and reflux uropathy; I42.0 Dilated cardiomyopathy; I87.8 Other specified disorders of veins; N18.3 Chronic kidney disease, stage 3 (moderate); D64.9 Anemia, unspecified; I25.5 Ischemic cardiomyopathy; N40.1 Benign prostatic hyperplasia with lower urinary tract symptoms; B96.1 Klebsiella pneumoniae [K. pneumoniae] as the cause of diseases classified elsewhere; Z80.1 Family history of malignant neoplasm of trachea, bronchus and lung; Z82.49 Family history of ischemic heart disease and other diseases of the circulatory system
CPT/HCPCS: 36415; 36416; 71045; 74176; 80048; 80053; 80202; 81003; 81015; 83605; 85025; 87040; 87077; 87086; 87186; 90471; 90662; 93005; 93306; 96361; 96365; 96367; 96374; 96375; G0008; G8978-GP-CM; G8979-GP-CK; G8987-GO-CL; G8988-GO-CL; G8989-GO-CL; J0696; J1580; J1650; J2185; J2405; J3010; J3370; J7050

== ENCOUNTER 2018-05-16 08:24 | Outpatient (CLI) | payer MEDICARE ==
--- NOTE | 2018-05-16 10:08 | PRG ---
DATE OF SERVICE: 05/16/2018 HISTORY: Mr. Alex Lind is a very pleasant 77-year-old gentleman who [facility] for evaluation of 2 ulcerations of the left lower leg. The patient completed a course of treatment with Apligraf. Biopsy of the ulceration obtained on 08/25/2017 returned negative for fungus, granulo ma or neoplasia. Histology was consistent with a skin ulcer compatible with stasis dermatitis. Matr iStem sheet was applied to the ulceration at the time of the patient's visit on 09/01/2017. The daron ent states he continues to receive dressing changes with the assistance of Home Health. The patient also has been seen by Cardiology for evaluation for venous ablation. PHYSICAL EXAMINATION: VITAL SIGNS: Temperature 98.2, pulse 81, respirations 18, blood pressure 135/61. EXTREMITIES: A large ulceration of the left anterior lateral lower leg is present, which measures ap proximately 12.5 x 7.5 cm. The dimensions of the wound at the time of the patient's visit on 018 were approximately 11.4 x 6.3 cm. A smaller ulceration is also present over the left lower leg, which measures approximately 2.7 x 0.9 cm. Granulation tissue is present within the wound margins. No discoloration of either wound bed is present on today's exam. No purulent drainage is associated with either wound. No cellulitis of the left lower leg is appreciated. No maceration of the skin of the periwound of either wound is noted. Edema of the left lower leg is again noted on today's exam. ASSESSMENT AND PLAN: 1. Chronic venous hypertension with ulcerations. Dressing changes of Santyl or Medihoney, 4x4s, ABD s, Kerlix and an Anup bandage will be continued 3 times per week after cleansing and irrigation with t he assistance of Home Health. The patient has again been encouraged to utilize his pneumatic pump on the left. The records of the patient's last visit with Cardiology have been obtained and the patien rosita is apparently not a candidate for venous ablation. I will see Mr. Lind again in four weeks. 2. Lymphedema. The patient is to utilize his pneumatic pump on the right and on the left for 45 min utes each day for each lower extremity. 3. Degenerative joint disease. 4. Asbestosis. 5. Congestive heart failure. 6. Anemia. 7. Benign prostatic hypertrophy. 8. Chronic kidney disease.
== END 2018-05-16 08:25 | disposition home or self-care (01) ==
LOC: WCC 08:24
PROVIDERS: ATTEND Family Medicine
DX: I87.312 Chronic venous hypertension (idiopathic) with ulcer of left lower extremity (principal); L97.929 Non-pressure chronic ulcer of unspecified part of left lower leg with unspecified severity; I89.0 Lymphedema, not elsewhere classified; J61 Pneumoconiosis due to asbestos and other mineral fibers; I50.9 Heart failure, unspecified; D63.1 Anemia in chronic kidney disease; N18.9 Chronic kidney disease, unspecified; N40.0 Benign prostatic hyperplasia without lower urinary tract symptoms; M19.90 Unspecified osteoarthritis, unspecified site
CPT/HCPCS: 97602

== ENCOUNTER 2018-06-06 10:07 | Outpatient (CLI) | payer MEDICARE ==
[~2018-06-06 10:07] MED LIST: Sodium Chloride 0.9% 15 ML NEB ONE
--- NOTE | 2018-06-06 11:47 | PRG ---
DATE OF SERVICE: 06/06/2018 HISTORY: Mr. Alex Lind is a very pleasant 77-year-old gentleman, who presents to the wound center for evaluation of 2 ulcerations of the left lower leg. The patient completed a course of treatment with Apligraf. The biopsy of the ulceration obtained on 06/24/2018 returned negative for fungus, granuloma, or neoplasia. Histology was consistent with a skin ulcer compatible with stasis dermatitis. MatriStem sheet was applied to the ulceration at the time of the patient's visit on 09/01/2017. The patient states he continues to receive dressing changes 3 times per week with the assistance of home health. The patient also has been seen by Cardiology for evaluation for venous ablation. PHYSICAL EXAMINATION: VITAL SIGNS: Temperature 97.6, pulse 102, respirations 16, and blood pressure 116/59. EXTREMITIES: A large ulceration of the left anterior lower leg is present, which measures approximately 7.5 x 13.5 cm. The dimensions of the wound at the time of the patient's visit on 05/16/2018 were approximately 12.5 x 7.5 cm. A smaller ulceration is also present over the left lower leg, which measures approximately 3.0 x 1.0 cm. The dimensions of this wound at the time of the patient's visit on 05/16/2018 were approximately 2.7 x 0.9 cm. Granulation tissue is present within the margins of each wound. No discoloration of either wound bed is present on today's exam. No purulent drainage is associated with either wound. No cellulitis of the left lower leg is appreciated. No laceration of the skin of the periwound of either wound is noted. No significant edema of the left lower leg is present on exam today. The smaller ulceration was dressed with Adaptic alone followed by the remaining secondary dressings. Prior to application of Hyalomatrix to the wound bed of the larger ulceration, the wound was copiously irrigated with normal saline, and the silicone layer was fenestrated with a scalpel. The Hyalomatrix was applied to the wound bed of the larger ulceration with the silicone layer facing outwards. ASSESSMENT AND PLAN: 1. Chronic venous hypertension with ulcerations. Hyalomatrix was applied to the wound bed of the larger ulceration today. The patient has been encouraged to use his pneumatic pump on the right. Per Cardiology, the patient is not a candidate for venous ablation on the left. I will see Mr. Lind again in 2 weeks. 2. Lymphedema. The patient is to utilize his pneumatic pump on the right for 45 minutes each day. The patient states that the pain associated with his left lower leg ulceration, the larger ulceration prohibits the use of his pneumatic pump on the left. 3. Degenerative joint disease. 4. Asbestosis. 5. Congestive heart failure. 6. Anemia. 7. Benign prostatic hypertrophy. 8. Chronic kidney disease. Job ID: [id number]
== END 2018-06-06 10:08 | disposition home or self-care (01) ==
LOC: WCC 10:07
PROVIDERS: ATTEND Family Medicine
DX: I87.312 Chronic venous hypertension (idiopathic) with ulcer of left lower extremity (principal); L97.929 Non-pressure chronic ulcer of unspecified part of left lower leg with unspecified severity; I89.0 Lymphedema, not elsewhere classified; J61 Pneumoconiosis due to asbestos and other mineral fibers; M19.90 Unspecified osteoarthritis, unspecified site; D63.1 Anemia in chronic kidney disease; I50.9 Heart failure, unspecified; N18.9 Chronic kidney disease, unspecified; N40.0 Benign prostatic hyperplasia without lower urinary tract symptoms
CPT/HCPCS: A4218; Q4117

== ENCOUNTER 2018-06-22 13:51 | Outpatient (CLI) | payer MEDICARE ==
[2018-06-22] MEDS ORDERED: Sodium Chloride 0.9% 15 ML NEB ONE (15:00)
--- NOTE | 2018-06-22 16:31 | PRG ---
DATE OF SERVICE: 06/22/2018 HISTORY: Mr. Alex Lind is a very pleasant 77-year-old gentleman who presents to the Wound Center for evaluation of 2 ulcerations of the left lower leg. The patient completed a course of treatment with Apligraf. Biopsy of the ulceration obtained previously returned negative for fungus, granuloma, or neoplasia. Histology was consistent with a skin ulcer compatible with stasis dermatitis. MatriStem sheet was applied to the ulceration at the time of the patient's visit on 09/01/2017. The patient states he continues to receive dressing changes 3 times per week with the assistance of Home Health. The patient has also been seen by Cardiology for evaluation for venous ablation. PHYSICAL EXAMINATION: VITAL SIGNS: Temperature 97.6, pulse 89, respirations 18, and blood pressure 111/88. EXTREMITIES: A large ulceration of the left anterior lower leg is present, which measures approximately 14.5 x 8.0 cm. A smaller ulceration is also present over the left lower leg, which measures approximately 1.5 x 3.5 cm. Granulation tissue is present within the margins of each wound. No purulent drainage is associated with either wound. No cellulitis of the left lower leg is appreciated. No maceration of the skin of the periwound of either wound is noted. No significant edema of the left lower leg is present on exam today. Hyalomatrix was applied to the wound bed of the smaller ulceration. Prior to application of the Hyalomatrix to the wound bed of the smaller ulceration, the wound was copiously irrigated with normal saline and the silicone layer was fenestrated with a scalpel. The Hyalomatrix was applied to the wound bed of the smaller ulceration with the silicone layer facing outwards. ASSESSMENT AND PLAN: 1. Chronic venous hypertension with ulcerations. Hyalomatrix was applied to the wound bed of the smaller ulceration today. The patient has been encouraged to use his pneumatic pump on the right. Per Cardiology, the patient is not a candidate for venous ablation on the left. I will see Mr. Lind again in 3 weeks. Orders will be transmitted to Home Health for dressing changes of Adaptic, ABDs, Kerlix, and Anup bandage 3 times per week after cleansing and irrigation. Instructions will be transmitted to Home Health to leave the Hyalomatrix intact at the time of dressing changes. 2. Lymphedema. The patient is to utilize his pneumatic pump on the right for 45 minutes each day. The patient again states that the pain associated with his left lower leg ulceration, the larger ulceration, prohibits the use of his pneumatic pump on the left. 3. Degenerative joint disease. 4. Asbestosis. 5. Congestive heart failure. 6. Anemia. 7. Benign prostatic hypertrophy. 8. Chronic kidney disease. Job ID: [id number]
== END 2018-06-22 13:52 | disposition home or self-care (01) ==
LOC: WCC 13:51
PROVIDERS: ATTEND Family Medicine
DX: I87.312 Chronic venous hypertension (idiopathic) with ulcer of left lower extremity (principal); L97.929 Non-pressure chronic ulcer of unspecified part of left lower leg with unspecified severity; I89.0 Lymphedema, not elsewhere classified; J61 Pneumoconiosis due to asbestos and other mineral fibers; I13.0 Hypertensive heart and chronic kidney disease with heart failure and stage 1 through stage 4 chronic kidney disease, or unspecified chronic kidney disease; I50.9 Heart failure, unspecified; N40.0 Benign prostatic hyperplasia without lower urinary tract symptoms; N18.9 Chronic kidney disease, unspecified; M19.90 Unspecified osteoarthritis, unspecified site; D63.1 Anemia in chronic kidney disease
CPT/HCPCS: A4218; C5271; Q4117

== ENCOUNTER 2018-07-13 08:00 | Outpatient (CLI) | payer MEDICARE ==
--- NOTE | 2018-07-13 09:28 | PRG ---
DATE OF SERVICE: 07/13/2018 HISTORY: Mr. Alex Lind is a very pleasant 77-year-old gentleman who presents to the Wound Center for evaluation of 2 ulcerations of the left lower leg. The patient completed a course of treatment with Apligraf. Biopsy of the ulceration obtained previously returned negative for fungus, granuloma, or neoplasia. Histology was consistent with a skin ulcer compatible with stasis dermatitis. MatriStem sheet was applied to the ulceration at the time of the patient's visit on 09/01/2017. The patient has also received treatment with Hyalomatrix for the left lower leg ulcerations. The patient continues to receive dressing changes 3 times per week with the assistance of Home Health. The patient has also been seen by Cardiology for evaluation for venous ablation. PHYSICAL EXAMINATION: VITAL SIGNS: Temperature 97.6, pulse 81, respirations 20, and blood pressure 129/62. EXTREMITIES: A large ulceration of the left anterior lower leg is present which measures approximately 14.8 x 8.5 cm. The dimensions of the wound at the time of the patient's last visit were approximately 14.5 x 8.0 cm. A smaller ulceration is also present over the left lower leg which measures approximately 4.0 x 1.4 cm. The dimensions of the wound at the time of the patient's last visit were approximately 3.5 x 1.5 cm. Granulation tissue is present within the margins of each wound. No purulent drainage is associated with either wound. No cellulitis of the left lower leg is appreciated. No maceration of the skin of the periwound of either wound is noted. A dorsalis pedis pulse is palpable on the left. A posterior tibial pulse is not palpable. No significant edema of the left lower leg is present on exam today. A new ulceration over the left medial 4th toe was present, which measures approximately 0.4 x 0.5 cm. ASSESSMENT AND PLAN: 1. Chronic venous hypertension with ulcerations. The patient also has a new ulceration of the medial left 4th toe. Arrangements will be made for the patient to be seen by Cardiology for evaluation for left lower extremity arterial insufficiency. I will see Mr. Lind again in 2 weeks. Orders will be transmitted to Home Health for dressing changes of Xeroform gauze, ABDs, Webril, and an Anup bandage 3 times per week after cleansing and irrigation. The patient has been given a prescription for Keflex 500mg one p.o. BID x 10 days. 2. Lymphedema. The patient has a pneumatic pump for in-home lymphedema therapy, which he is able to use for his right lower extremity lymphedema. 3. Degenerative joint disease. 4. Asbestosis. 5. Congestive heart failure. 6. Anemia. 7. Benign prostatic hypertrophy. 8. Chronic kidney disease. Job ID: [id number] MTDD
== END 2018-07-13 08:01 | disposition home or self-care (01) ==
LOC: WCC 08:00
PROVIDERS: ATTEND Family Medicine
DX: I87.312 Chronic venous hypertension (idiopathic) with ulcer of left lower extremity (principal); L97.929 Non-pressure chronic ulcer of unspecified part of left lower leg with unspecified severity; I89.0 Lymphedema, not elsewhere classified; M19.90 Unspecified osteoarthritis, unspecified site; J61 Pneumoconiosis due to asbestos and other mineral fibers; N18.9 Chronic kidney disease, unspecified; I50.9 Heart failure, unspecified; D63.1 Anemia in chronic kidney disease; N40.0 Benign prostatic hyperplasia without lower urinary tract symptoms

== ENCOUNTER 2018-07-27 08:08 | Outpatient (CLI) | payer MEDICARE ==
--- NOTE | 2018-07-27 09:29 | PRG ---
DATE OF SERVICE: 07/27/2018 HISTORY: Mr. Alex Lind is a very pleasant 77-year-old gentleman, who presents to the Wound Center for evaluation of 2 ulcerations of the left lower leg. The patient completed a course of treatment with Apligraf. Biopsy of the ulceration obtained previously returned negative for fungus, granuloma, or neoplasia. Histology was consistent with a skin ulcer compatible with stasis dermatitis. MatriStem sheet was applied to the ulceration at the time of the patient's visit on 09/01/2017. The patient has also received treatment with Hyalomatrix for the left lower leg ulcerations. Since the patient's last visit, Mr. Lind has been receiving dressing changes of Xeroform with the assistance of Home Health. The patient has also been seen by Cardiology for evaluation for venous ablation. The patient states that he has an appointment with Dr. Samson of Cardiology later today. PHYSICAL EXAMINATION: VITAL SIGNS: Temperature 97.8, pulse 94, blood pressure 136/61. EXTREMITIES: A large ulceration of the left anterior lower leg is present, which measures approximately 14.9 x 7.3 cm. The dimensions of the wound at the time of the patient's last visit were approximately 14.8 x 8.5 cm. A smaller ulceration is present over the left lower leg, which measures approximately 1.8 x 3.6 cm. The dimensions of the wound at the time of the patient's last visit were approximately 4.0 x 1.4 cm. Granulation tissue is present within the margins of each wound. No purulent drainage is associated with either wound. No cellulitis of the left lower leg is appreciated. No maceration of the skin of the periwound of either wound is noted. A dorsalis pedis pulse is palpable on the left. No significant edema of the left lower leg is present on exam today. The ulceration over the left medial 4th toe noted at the time of the patient's last visit has improved in its appearance. The patient has a new ulceration, however, over the left medial great toe, which measures approximately 0.8 x 0.3 cm. Slight erythema of the left great toe is present on today's exam. ASSESSMENT AND PLAN: 1. Chronic venous hypertension with ulcerations. The patient also has an ulceration of the left medial 4th toe, which has improved in its appearance since the patient's last visit. A new ulceration over the left medial great toe is present. The patient states that he will be seen by Cardiology later today for evaluation for left lower extremity arterial insufficiency. I will see Mr. Lind again after evaluation and any necessary treatment by Cardiology is complete. Orders will be transmitted to Home Health for dressing changes of Xeroform gauze, ABDs, Webril, and an Anup bandage 3 times per week after cleansing and irrigation. The patient states he has completed the course of Keflex as previously prescribed. 2. Lymphedema. The patient has a pneumatic pump for in-home lymphedema therapy, which he has been encouraged to use for his right lower extremity lymphedema. 3. Degenerative joint disease. 4. Asbestosis. 5. Congestive heart failure. 6. Anemia. 7. Benign prostatic hypertrophy. 8. Chronic kidney disease. Job ID: [id number]
== END 2018-07-27 08:09 | disposition home or self-care (01) ==
LOC: WCC 08:08
PROVIDERS: ATTEND Family Medicine
DX: I87.312 Chronic venous hypertension (idiopathic) with ulcer of left lower extremity (principal); L97.529 Non-pressure chronic ulcer of other part of left foot with unspecified severity; M19.90 Unspecified osteoarthritis, unspecified site; I50.9 Heart failure, unspecified; D63.1 Anemia in chronic kidney disease; N18.9 Chronic kidney disease, unspecified; I89.0 Lymphedema, not elsewhere classified; J61 Pneumoconiosis due to asbestos and other mineral fibers; N40.0 Benign prostatic hyperplasia without lower urinary tract symptoms
CPT/HCPCS: 97139; 97602; G0463; 99213

== ENCOUNTER 2018-09-26 13:20 | Outpatient (CLI) | payer MEDICARE ==
--- NOTE | 2018-09-26 14:36 | PRG ---
DATE OF SERVICE: 09/26/2018 SUBJECTIVE: Mr. Alex Lind is a very pleasant 77-year-old gentleman, who presents to the Wound Center for evaluation of two ulcerations of the left lower leg. The patient completed a course of treatment with Apligraf. Biopsy of the ulceration obtained previously returned negative for fungus, granuloma, or neoplasia. Histology was consistent with a skin ulcer compatible with stasis dermatitis. MatriStem sheet was applied to the ulceration at the time of the patient's visit on 09/01/2017. The patient has also received treatment with Hyalomatrix for the left lower leg ulcerations. Since the patient's last visit, Mr. Lind has been receiving dressing changes of Xeroform with the assistance of Home Health. The patient has also been seen by Cardiology for evaluation for venous ablation. The patient will be seen by Cardiology in three days for evaluation for left lower extremity arterial insufficiency. OBJECTIVE: VITAL SIGNS: Temperature 97.8, pulse 85, blood pressure 121/57. EXTREMITIES: A large ulceration of the left anterior lower leg is present, which measures approximately 8.8 x 17.0 centimeter. The dimensions of the wound at the time of the patient's last visit were approximately 8.0 x 15.5 cm. A smaller ulceration is present over the left lower leg, which measures approximately 5.4 x 6.1 cm. Granulation tissue is present within the margins of each wound. Copious drainage is associated with both wounds. A sample of granulation tissue within the margins of the smaller wound was excised with the use of scissors and sent for aerobic, anaerobic, and fungal cultures. No cellulitis of the left lower leg is appreciated. No maceration of the skin of the periwound of either wound is noted. Edema of the left foot and lower leg is present on exam today. ASSESSMENT AND PLAN: 1. Chronic venous hypertension with ulcerations. As stated above, the patient has been seen by Cardiology for evaluation for venous ablation. The patient has also been referred to Cardiology for evaluation for left lower extremity arterial insufficiency. The patient's daughter has been notified in regard to the date and time of the patient's appointment with Cardiology. Orders will be transmitted to Home Health for dressing changes of Silvercel, ABDs, Webril, and the 3M Coban 2 Layer Compression System on a weekly basis and as needed after cleansing and irrigation. I will see Mr. Lind again after he has been evaluated by Cardiology. The patient has been given prescriptions for Augmentin 875/125 #20 one p.o. b.i.d. x10 days and Bactrim DS #20 one p.o. b.i.d. x10 days. Antibiotic therapy will be modified based upon the results of the tissue cultures obtained today. 2. Lymphedema. The patient has a pneumatic pump for in-home lymphedema therapy. The patient again states that the pneumatic pump is too painful to utilize over his left anterior lower leg wounds. The patient has been told to utilize his pump, however for the lymphedema of his right lower extremity. 3. Degenerative joint disease. 4. Asbestosis. 5. Congestive heart failure. 6. Anemia. 7. Benign prostatic hypertrophy. 8. Chronic kidney disease. Job ID: [id number]
[2018-09-26] MEDS ORDERED: Lidocaine 2% 11 ML SYR ONE (18:00)
[2018-09-26] MEDS ORDERED: Sodium Chloride 0.9% 15 ML NEB ONE (18:00)
== END 2018-09-26 13:21 | disposition home or self-care (01) ==
LOC: WCC 13:20
PROVIDERS: ATTEND Family Medicine
DX: I87.312 Chronic venous hypertension (idiopathic) with ulcer of left lower extremity (principal); L97.929 Non-pressure chronic ulcer of unspecified part of left lower leg with unspecified severity; I89.0 Lymphedema, not elsewhere classified; M19.90 Unspecified osteoarthritis, unspecified site; J61 Pneumoconiosis due to asbestos and other mineral fibers; I50.9 Heart failure, unspecified; N40.0 Benign prostatic hyperplasia without lower urinary tract symptoms; N18.9 Chronic kidney disease, unspecified; D63.1 Anemia in chronic kidney disease
CPT/HCPCS: 87070; 87077; 87205; A4218

== ENCOUNTER 2019-08-02 07:06 | Inpatient (IN) | payer MEDICARE ==
[2019-08-02 08:01] LABS: Hemoglobin 9.1 g/dL (14.0-18.0); Mean Corpuscular Hemoglobin 34.6 pg (27.0-31.0); Mean Platelet Volume 8.4 fL (7.4-10.4); Platelet Count 163 thou/uL (130-400); RBC Distribution Width 15.1 % (11.5-14.5); Red Blood Cell (RBC) Count 2.63 mill/uL (4.70-6.10); White Blood Cell (WBC) Count 9.7 thou/uL (4.8-10.8)
--- NOTE | 2019-08-02 08:13 | CT ---
CT Brain WO Con: 08/02/2019 7:47 AM CLINICAL HISTORY: Fall. IMAGING TECHNIQUE: Multiple CT images were obtained of the brain without IV contrast. COMPARISON: Prior exam dated August 25, 2017 FINDINGS: Brain: No acute infarct or hemorrhage is evident. No midline shift. Mild chronic small vessel white matter ischemic changes stable. Ventricles: Normal. No hydrocephalus. Skull: Intact. Visualized Paranasal sinuses: Clear. Mastoid air cells:Right mastoid effusion is stable. Extracranial soft tissues:Normal. IMPRESSION: No acute intracranial abnormality.
--- NOTE | 2019-08-02 08:14 | CT ---
CT CERVICAL SPINE NONCONTRAST: DATE: 08/02/2019 HISTORY: cervical trauma FINDINGS: There are no jumped or perched facets. There is no evidence of acute fracture. The vertebral body hei ghts are maintained. There is no prevertebral soft tissue swelling. There are degenerative disc changes and facet osteoarthrosis. The entire right middle ear cavity, right mastoid antrum, and all t he right mastoid air cells, are opacified. IMPRESSION: 1) Cervical spondylosis. 2) no evidence of acute fracture or acute traumatic subluxation. 3) total opacification of right tympanomastoid cavity.
[2019-08-02 08:20] LABS: ALT (SGPT) 8 U/L (8-55); AST (SGOT) 26 U/L (5-34); Albumin 3.4 g/dL (3.4-4.8); Alkaline Phosphatase 83 U/L (40-110); Anion Gap 14 mmol/L (10-20); BUN (Urea Nitrogen) 16 mg/dL (8.4-25.7); Bilirubin, Total 1.1 mg/dL (0.2-1.2); Calc. Creatinine Clearance 0 mL/min (70-130); Calcium 8.5 mg/dL (7.8-10.44); Carbon Dioxide 19 mmol/L (23-31); Chloride 104 mmol/L (98-107); Estimated GFR-MDRD 43; Globulin 5.2 g/dL (2.4-3.5); Glucose 98 mg/dL (83-110); Potassium 4.3 mmol/L (3.5-5.1); Protein, Total 8.6 g/dL (5.8-8.1); Sodium 133 mmol/L (136-145)
--- NOTE | 2019-08-02 08:34 | RAD ---
EXAM: Single view of the chest HISTORY: Fall with chest pain COMPARISON: 04/14/2018 FINDINGS: Single view of the chest shows a normal sized cardiomediastinal silhouette. There is no monico dence of consolidation, mass, or pleural effusion. Degenerative changes are seen in the spine. IMPRESSION: No evidence of acute cardiopulmonary disease
--- NOTE | 2019-08-02 08:35 | RAD ---
Exam: Single view of the pelvis HISTORY: Pelvic and hip pain COMPARISON: 03/18/2015 FINDINGS: A single view the pelvis shows no evidence of acute fracture or dislocation. Mild degenerat branden changes seen in both hips. IMPRESSION: No evidence of acute osseous abnormality.
--- NOTE | 2019-08-02 08:36 | RAD ---
EXAM: 2 views of the left hip HISTORY: Left hip pain COMPARISON: None FINDINGS: 2 views of the left hip shows no evidence of acute fracture or dislocation. Mild degenerati ve changes are seen. No soft tissue swelling is present. IMPRESSION: No evidence of acute osseous abnormality.
[2019-08-02 08:53] LABS: Band 18 % (5-11); Lymphocytes 23 % (21-51); MDiff Complete? YES; Macrocytosis SLIGHT = 6-15 cells (100X) (0-5/hpf); Metamyelocyte 1 % (0-0); Monocytes 24 % (0-10); Neutrophil 32 % (42-75); Nucleated RBC 1 % (0); Platelet Morphology Comment Appears Adequate; Polychromasia SLIGHT = 2-3 cells (100X) (0-2/hpf); Promyelocytes 1 % (0-0); Reactive Lymphocytes 1 % (0-10); Rouleaux Formation SLIGHT = 1-5 cells (100X) (None Seen)
[2019-08-02] MEDS ORDERED: Morphine 4 MG/ML VIAL ONE (09:43)
--- NOTE | 2019-08-02 15:25 | PDOC.FPRHP ---
- History of Present Illness Chief Complaint: fall History of Present Illness: Alex Lind is a 78 year old M with a PMH of CHF, HTN, Hx of mesothelioma, BPH who presented to the ED after 2 falls at home early this morning. He lives at home alone and usually ambulates with a walker and a cane. Normally manages ADLs on his own. States that his legs just felt weak and he fell. Daughter was with him in ED and states that she calls to check up on him most days. Has had no complaints recently. Denies any vision changes, headaches, chest pain, dyspnea, palpitations, n/v, abdominal pain, dysuria, GI bleeding. Complained of hip and leg pain in the ED and had negative CXR, Hip and Pelvic Xray. Getting him set up with rehab was attempted in ED but was unsuccessful and daughter did not feel comfortable with him going home alone. In the ED, he was given morphine 4 mg for pain. - Allergies/Adverse Reactions Allergies Allergy/AdvReac Type Severity Reaction Status Date / Time No Known Drug Allergies Allergy Verified 08/02/19 17:37 - Home Medications Medication Instructions Recorded Confirmed Type Carvedilol [Coreg] 6.25 mg PO BID-WM #0 tab 12/14/14 08/02/19 Rx Ferrous Sulfate 325 mg PO DAILY #0 tablet 02/02/15 08/02/19 Rx Bupropion HCl [buPROPion HCl XL] 300 mg PO DAILY 05/04/16 08/02/19 History Furosemide [Lasix] 40 mg PO BID 05/04/16 08/02/19 History Potassium Chloride 20 meq PO DAILY 05/04/16 08/02/19 History Fluconazole [Diflucan] 150 mg PO Q3DAYS 04/14/18 08/02/19 History Folic Acid [Folvite] 1 mg PO DAILY 04/14/18 08/02/19 History Gabapentin 300 mg PO TID 04/14/18 08/02/19 History traMADol HCl [Tramadol HCl] 50 mg PO Q6HR PRN 08/02/19 08/02/19 History - History PMHx: CHF, HTN, Mesothelioma, BPH PSHx: Prostatectomy FHx: noncontributory Social: denies drug, alcohol and smoking - Review of Systems General: denies: fever/chills, weight/appetite/sleep changes Eyes: denies: eye pain, vision changes ENT: denies: nasal congestion, rhinorrhea Respiratory: denies: cough, congestion, shortness of breath Cardiovascular: denies: chest pain, palpitation Gastrointestinal: denies: nausea, vomiting, diarrhea, abdominal pain Genitourinary: denies: incontinence, dysuria Skin: denies: lesions Musculoskeletal: reports: pain. denies: tenderness Neurological: reports: weakness. denies: syncope, seizure Psychological: denies: anxiety, depression - Vital signs BP: 116/70 HR: 87 RR: 15 Tmax: 98.1 Pox: 98% on RA Wt: 114 kg - Physical Exam Constitutional: NAD, awake, alert and oriented, well developed HEENT: normocephalic and atraumatic, PERRLA, EOMI, conjunctiva clear, grossly normal vision, grossly normal hearing Neck: supple, FROM Chest: no-tender to palpation, no lesions Heart: RRR, normal S1/S2, no murmurs/rubs/gallops Lungs: CTAB, no respiratory distress, good air movement, no rales/rhonchi Abdomen: soft, non-tender, bowel sounds present Musculoskeletal: normal structure, normal tone Neurological: no focal deficit, CN II-XII intact, normal sensation Skin: good turgor, capillary refill <2 seconds -Skin: skin wound on left lower extremity, bandaged, dressing intact and dry Psychiatric: normal mood and affect, good judgment and insight, intact recent and remote memory FMR H&P: Results - Labs Result Diagrams: 08/03/19 04:33 08/03/19 04:33 Lab results: WBC 9.7 thou/uL (4.8-10.8) 08/02/19 07:46 Hgb 9.1 g/dL (14.0-18.0) L 08/02/19 07:46 Hct 27.5 % (42.0-52.0) L 08/02/19 07:46 MCV 105.0 fL (78.0-98.0) H 08/02/19 07:46 Plt Count 163 thou/uL (130-400) 08/02/19 07:46 Band Neuts % (Manual) 18 % (5-11) H 08/02/19 07:46 Sodium 133 mmol/L (136-145) L 08/02/19 07:46 Potassium 4.3 mmol/L (3.5-5.1) 08/02/19 07:46 Chloride 104 mmol/L (98-107) 08/02/19 07:46 Carbon Dioxide 19 mmol/L (23-31) L 08/02/19 07:46 BUN 16 mg/dL (8.4-25.7) 08/02/19 07:46 Creatinine 1.56 mg/dL (0.7-1.3) H 08/02/19 07:46 Glucose 98 mg/dL (83-110) 08/02/19 07:46 Calcium 8.5 mg/dL (7.8-10.44) 08/02/19 07:46 Total Bilirubin 1.1 mg/dL (0.2-1.2) 08/02/19 07:46 AST 26 U/L (5-34) 08/02/19 07:46 ALT 8 U/L (8-55) 08/02/19 07:46 Alkaline Phosphatase 83 U/L (40-110) 08/02/19 07:46 Serum Total Protein 8.6 g/dL (5.8-8.1) H 08/02/19 07:46 Albumin 3.4 g/dL (3.4-4.8) 08/02/19 07:46 - EKG Interpretation EKG: NSR with no ST changes - Radiology Interpretation Chest x-ray Status: image reviewed by me, report reviewed by me (no acute cardiopulmonary findings) CT scan - head Status: report reviewed by me (no acute findings) FMR H&P: A/P - Problem List (1) Fall Current Visit: Yes Status: Acute Code(s): W19.XXXA - UNSPECIFIED FALL, INITIAL ENCOUNTER (2) Macrocytic anemia Current Visit: Yes Status: Chronic Code(s): D53.9 - NUTRITIONAL ANEMIA, UNSPECIFIED (3) Physical deconditioning Current Visit: Yes Status: Chronic Code(s): R53.81 - OTHER MALAISE (4) CKD (chronic kidney disease) stage 3, GFR 30-59 ml/min Current Visit: No Status: Chronic (5) Cardiomyopathy Current Visit: No Status: Chronic Code(s): I42.9 - CARDIOMYOPATHY, UNSPECIFIED Qualifiers: Cardiomyopathy type: dilated Qualified Code(s): I42.0 - Dilated cardiomyopathy - Plan 1) Hx of Fall - likely physically deconditioned - normal CT brain, denied CP/palpitations, EKG NSR - obs/medical - CM to assist patient with NH placement - no evidence of fractures on hip/pelvis xray 2) Macrocytic anemia - chronic - checking B12 and RBC folate 3) CKD - Cr/eGFR improved compared to previous - continue to monitor - will give mIVFs while here 4) Hx of CHF - no evidence for fluid overload - gentle mIVFs - monitor I/Os Code Status: DNAR, discussed with pt and MPOA PCP: JENNY Lerma Addendum - Attending - Attending Attestation Date/Time: 08/03/19 1141 I personally evaluated the patient and discussed the management with Dr. Espinoza yesterday afternoon. I agree with the History, Examination, Assessment and Plan documented above with any addition or exceptions noted below.
[2019-08-02] MEDS ORDERED: Ondansetron ODT 4 MG TAB SL PRN (16:53)
[2019-08-02] MEDS ORDERED: Ondansetron PF 4 MG/2 ML Vial IVP PRN ×2 (16:53→17:14)
[2019-08-02] MEDS ORDERED: Acetaminophen 325 MG TAB PO PRN (16:53)
[2019-08-02 19:02] LABS: Bacteria/HPF 2+ HPF (None Seen); Bilirubin Negative (Negative); Blood, Urine 1+ (Negative); Clarity Extra Turbid (Clear); Glucose, Urine (Dipstick) Normal (Negative); Leukocyte 500 Leu/uL (Negative); Nitrite Negative (Negative); Protein, Urine (Dipstick) 50 mg/dL (Neg-Trace); Squamous Epithelial 0-3 HPF (0-3); Urobilinogen Normal mg/dL (Less than 2); WBC/HPF Greater than 50 HPF (0-3)
[2019-08-02 19:35] LABS: Magnesium 2.1 mg/dL (1.6-2.6); Phosphorus 2.8 mg/dL (2.3-4.7)
[2019-08-02] MEDS: cefTRIAXone\\ROCEPHIN 1 GM in Sodium Chloride 0.9% 100 ML IVPB SCH (21:07)
[2019-08-03] MEDS: Acetaminophen 325 MG TAB PO PRN ×2 (01:28→17:05)
[2019-08-03 05:28] LABS: ALT (SGPT) 9 U/L (8-55); AST (SGOT) 30 U/L (5-34); Albumin 3.3 g/dL (3.4-4.8); Alkaline Phosphatase 77 U/L (40-110); Anion Gap 10 mmol/L (10-20); BUN (Urea Nitrogen) 16 mg/dL (8.4-25.7); Bilirubin, Total 0.9 mg/dL (0.2-1.2); Calc. Creatinine Clearance 66 mL/min (70-130); Calcium 8.5 mg/dL (7.8-10.44); Carbon Dioxide 22 mmol/L (23-31); Chloride 103 mmol/L (98-107); Estimated GFR-MDRD 40; Globulin 5.3 g/dL (2.4-3.5); Glucose 91 mg/dL (83-110); Potassium 4.1 mmol/L (3.5-5.1); Protein, Total 8.6 g/dL (5.8-8.1); Sodium 131 mmol/L (136-145)
[2019-08-03 05:34] LABS: Band 11 % (5-11); Hemoglobin 9.2 g/dL (14.0-18.0); Hypochromia SLIGHT = 6-15 cells (100X) (0-5/hpf); Lymphocytes 22 % (21-51); MDiff Complete? YES; Macrocytosis SLIGHT = 6-15 cells (100X) (0-5/hpf); Mean Corpuscular HGB CONC 32.5 g/dL (32.0-36.0); Mean Platelet Volume 8.6 fL (7.4-10.4); Monocytes 11 % (0-10); Neutrophil 56 % (42-75); Platelet Count 159 thou/uL (130-400); Platelet Morphology Comment Appears Adequate; RBC Distribution Width 15.1 % (11.5-14.5); Red Blood Cell (RBC) Count 2.69 mill/uL (4.70-6.10); White Blood Cell (WBC) Count 8.6 thou/uL (4.8-10.8)
--- NOTE | 2019-08-03 08:47 | PDOC.FM ---
- Subjective Subjective: Patient was resting comfortably in his hospital bed with Wound Care attending to his LLE. He denied any acute overnight events. - Objective Vital Signs & Weight: Vital Signs (12 hours) Temp Pulse Resp BP Pulse Ox 08/03/19 07:41 98.3 F 86 18 130/56 L 94 L 08/03/19 03:24 98.6 F 94 14 118/58 L 94 L 08/02/19 21:14 98.3 F 84 16 150/69 H 98 Weight Weight 125.736 kg I&O: 08/02/19 08/03/19 08/04/19 06:59 06:59 06:59 Intake Total 850 Output Total 650 Balance 200 Result Diagrams: 08/03/19 04:33 08/03/19 04:33 Phys Exam - Physical Examination Constitutional: NAD HEENT: moist MMs, sclera anicteric, oral pharynx no lesions Neck: supple, full ROM Respiratory: no wheezing, no rales, no rhonchi, clear to auscultation bilateral Cardiovascular: RRR, no significant murmur, no rub Gastrointestinal: soft, non-tender, no distention, positive bowel sounds Musculoskeletal: pulses present Neurological: moves all 4 limbs Psychiatric: normal affect, A&O x 3 Skin: no rash Dx/Plan - Plan Plan: Patient is a 78 y/o male who presents to the ED following a fall. 1) Hx of Fall - Likely 2/2 to physical deconditioning - patient uses a walker at baseline - CT Brain: NAF - CT C-Spine: NAF - CXR: NAF - CT Pelvis/Hips: NAF - Case Analytics Developer: Pending - patient may require NH placement - PT/OT Consult: Pending - UA: Consistent with infection - cultures pending - s/p Ceftriaxone will continue until UCx results - Chronic LLE wound may be contributing factor - says that he had a "spider bite 2 years ago" 2) Macrocytic Anemia - Likely chronic - B12: Pending - Folate: Pending 3) TEOFILO on CKD - Cr: 1.56 > 1.66 on 08/03/2019 - Cr/eGFR improved compared to previous - Continue to monitor - Consider LR 500 ml bolus 4) Hx of CHF - No evidence for fluid overload - Monitor I/Os - Monitor respiratory status Code Status: DNAR, discussed with pt and MPOA PCP: JENNY Lerma Dispo: Patient is currently stable on the Stroke Floor. Imaging has been negative to date - physical deconditioning appears to be likely contributing factor with aforementioned suspected UTI. Continue IV ABx until UCx result. Await Case Management and PT/OT recs. Expected LOS > 48H. Addendum - Attending - Attending Attestation Date/Time: 08/03/19 4617 I personally evaluated the patient and discussed the management with Dr. Sanchez. I agree with the History, Examination, Assessment and Plan documented above with any addition or exceptions noted below. Pt presented after 2 falls. He has been found to have a UTI. Continue antibiotics. Awaiting cultures. Consulting case mgmt for help with placement.
[2019-08-03] MEDS ORDERED: FLU VACC TS2019-20(65YR UP)/PF 180 MCG/0.5 ML SYRINGE IM ONE (09:00)
[2019-08-03] MEDS: Enoxaparin Sodium 30 MG/0.3 ML SYRINGE SC SCH (09:51)
[2019-08-03] MEDS: Ferrous Sulfate 325 MG TAB PO SCH (09:51)
[2019-08-03] MEDS: Carvedilol 6.25 MG TAB PO SCH ×2 (09:51→17:05)
[2019-08-03] MEDS: Folic Acid 1 MG TAB PO SCH (09:52)
[2019-08-03] MEDS: Bupropion 150 MG XL TAB PO SCH (09:52)
[2019-08-03] MEDS: Famotidine 20 MG TAB PO SCH (09:52)
[2019-08-03] MEDS: Potassium Chloride 20 MEQ TAB PO SCH (09:52)
[2019-08-03] MEDS: Furosemide 40 MG TAB PO SCH ×2 (09:52→19:41)
[2019-08-03] MEDS: Fluconazole 100 MG TAB PO SCH (09:52)
[2019-08-03 13:24] VITALS: BMI 42.1
[2019-08-03] MEDS: cefTRIAXone\\ROCEPHIN 1 GM in Sodium Chloride 0.9% 100 ML IVPB SCH (19:40)
[2019-08-04] MEDS: Acetaminophen 325 MG TAB PO PRN ×3 (01:20→19:29)
--- NOTE | 2019-08-04 06:53 | PDOC.FM ---
- Subjective Subjective: Patient was resting comfortably in bed at the time of evaluation. His only complaint at this time was some residual pain in his knees from when he fell previously at his home. - Objective Vital Signs & Weight: Vital Signs (12 hours) Temp Pulse Resp BP BP Pulse Ox 08/04/19 03:07 98.5 F 78 15 120/56 L 92 L 08/03/19 23:48 99.0 F 76 16 108/59 L 98 08/03/19 19:50 98.1 F 70 16 105/57 L 94 L Weight Admit Weight 125.736 kg Weight 125.736 kg I&O: 08/02/19 08/03/19 08/04/19 06:59 06:59 06:59 Intake Total 850 1050 Output Total 650 900 Balance 200 150 Result Diagrams: 08/04/19 08:22 08/04/19 08:22 Phys Exam - Physical Examination Constitutional: NAD HEENT: moist MMs, sclera anicteric, oral pharynx no lesions Neck: supple, full ROM Respiratory: no wheezing, no rales, no rhonchi, clear to auscultation bilateral Cardiovascular: RRR, no significant murmur, no rub Gastrointestinal: soft, non-tender, no distention, positive bowel sounds Musculoskeletal: no edema, pulses present No gross deformity of the LEs. Minimal bruising, ecchymoses, w/o tracking Dx/Plan - Plan Plan: Patient is a 78 y/o male who presents to the ED following a fall. 1) Hx of Fall - Likely 2/2 to physical deconditioning and UTI - patient uses a walker at baseline - CT Brain: NAF - CT C-Spine: NAF - CXR: NAF - CT Pelvis/Hips: NAF - Case Drapery Worker: Pending responses from [facility] - denied by [facility], [facility] is out of network - PT/OT Consult: Pending - UCx: Gm(-) Rods - Sensitivities pending - s/p Ceftriaxone will continue until UCx results - Chronic LLE wound may be contributing factor - says that he had a "spider bite 2 years ago" 2) Macrocytic Anemia - Likely chronic - B12: Pending - Folate: Pending - Currently supplementing w/ PO Folic Acid 3) TEOFILO on CKD - Cr: 1.56 > 1.66 on 08/03/2019 - Cr/eGFR improved compared to previous - Continue to monitor 4) Hx of CHF - No evidence for fluid overload - Monitor I/Os - Monitor respiratory status - Continue home medication regimen PCP: JENNY Lerma Code Status: DNAR Diet: HH w/ Low Sodium Activity: Ambulate w/ Assist VTE PPx: Lovenox, Renally Dosed Dispo: Patient is currently stable on the Stroke Floor. Imaging has been negative to date - physical deconditioning and UTI appear to be likely contributing factors to recent falls. Continue IV ABx until UCx result. Await Case Management and PT/OT recs. Expected LOS > 48H. Addendum - Attending - Attending Attestation Date/Time: 08/04/19 1341 I personally evaluated the patient and discussed the management with Dr. Sanchez. I agree with the History, Examination, Assessment and Plan documented above with any addition or exceptions noted below. The patient is improved with antibiotics for uti. Working on placement with case mgmt.
[2019-08-04 08:57] LABS: ALT (SGPT) 12 U/L (8-55); AST (SGOT) 30 U/L (5-34); Albumin 3.5 g/dL (3.4-4.8); Alkaline Phosphatase 92 U/L (40-110); Anion Gap 12 mmol/L (10-20); BUN (Urea Nitrogen) 18 mg/dL (8.4-25.7); Bilirubin, Total 0.7 mg/dL (0.2-1.2); Calc. Creatinine Clearance 61 mL/min (70-130); Calcium 8.9 mg/dL (7.8-10.44); Carbon Dioxide 25 mmol/L (23-31); Chloride 103 mmol/L (98-107); Estimated GFR-MDRD 37; Globulin 5.8 g/dL (2.4-3.5); Glucose 84 mg/dL (83-110); Potassium 3.9 mmol/L (3.5-5.1); Protein, Total 9.3 g/dL (5.8-8.1); Sodium 136 mmol/L (136-145)
[2019-08-04] MEDS: Carvedilol 6.25 MG TAB PO SCH ×2 (09:12→17:32)
[2019-08-04] MEDS: Bupropion 150 MG XL TAB PO SCH (09:12)
[2019-08-04] MEDS: Folic Acid 1 MG TAB PO SCH (09:13)
[2019-08-04] MEDS: Enoxaparin Sodium 30 MG/0.3 ML SYRINGE SC SCH (09:13)
[2019-08-04] MEDS: Ferrous Sulfate 325 MG TAB PO SCH (09:13)
[2019-08-04] MEDS: Furosemide 40 MG TAB PO SCH ×2 (09:13→20:13)
[2019-08-04] MEDS: Famotidine 20 MG TAB PO SCH (09:13)
[2019-08-04] MEDS: Potassium Chloride 20 MEQ TAB PO SCH (09:13)
[2019-08-04 09:27] LABS: Band 11 % (5-11); Eosinophils 2 % (0-10); Hemoglobin 9.6 g/dL (14.0-18.0); Hypochromia SLIGHT = 6-15 cells (100X) (0-5/hpf); Lymphocytes 21 % (21-51); MDiff Complete? YES; Macrocytosis SLIGHT = 6-15 cells (100X) (0-5/hpf); Mean Corpuscular HGB CONC 31.7 g/dL (32.0-36.0); Mean Corpuscular Hemoglobin 33.3 pg (27.0-31.0); Mean Platelet Volume 9.2 fL (7.4-10.4); Metamyelocyte 1 % (0-0); Monocytes 28 % (0-10); Neutrophil 37 % (42-75); Platelet Count 159 thou/uL (130-400); Platelet Morphology Comment Appears Adequate
[2019-08-04] MEDS ORDERED: Piperacillin/Tazobactam 3.375 GM in Sodium Chloride 0.9% 100 ML IVPB SCH (18:00)
[2019-08-04 18:29] LABS: Bacteria/HPF 4+ HPF (None Seen); Bilirubin Negative (Negative); Blood, Urine 1+ (Negative); Clarity Extra Turbid (Clear); Glucose, Urine (Dipstick) Normal (Negative); Leukocyte 500 Leu/uL (Negative); Nitrite Negative (Negative); Protein, Urine (Dipstick) 30 mg/dL (Neg-Trace); Urobilinogen Normal mg/dL (Less than 2); WBC/HPF Greater than 50 HPF (0-3)
[2019-08-04] MEDS: Piperacillin/Tazobactam 3.375 GM in Sodium Chloride 0.9% 100 ML IVPB SCH (21:13)
[2019-08-05] MEDS: Piperacillin/Tazobactam 3.375 GM in Sodium Chloride 0.9% 100 ML IVPB SCH ×3 (05:38→21:17)
[2019-08-05] MEDS: traMADol HCl 50 MG TAB PO PRN ×3 (05:53→20:48)
--- NOTE | 2019-08-05 05:55 | PDOC.FM ---
- Subjective Subjective: Patient was resting comfortably in his hospital bed, watching television, at the time of evaluation. He expressed continued anxiety over his hospitalization and his desire to return home. He denied any acute overnight events. - Objective Vital Signs & Weight: Vital Signs (12 hours) Temp Pulse Resp BP BP BP Pulse Ox 08/05/19 04:00 98.1 F 82 18 121/74 94 L 08/05/19 00:00 97.8 F 76 18 102/70 94 L 08/04/19 19:41 98.2 F 74 18 123/71 94 L 08/04/19 18:00 97.8 F 75 20 125/70 94 L Weight Admit Weight 125.645 kg Weight 125.736 kg I&O: 08/03/19 08/04/19 08/05/19 06:59 06:59 06:59 Intake Total 850 1050 1080 Output Total 071 965 1909 Balance 200 150 -120 Result Diagrams: 08/04/19 08:22 08/05/19 06:05 Phys Exam - Physical Examination Constitutional: NAD HEENT: moist MMs, sclera anicteric, oral pharynx no lesions Neck: supple, full ROM Respiratory: no wheezing, no rales, no rhonchi, clear to auscultation bilateral Cardiovascular: RRR, no significant murmur, no rub Gastrointestinal: soft, non-tender, no distention, positive bowel sounds Musculoskeletal: no edema, pulses present Bandage in place on LLE Neurological: non-focal, moves all 4 limbs Psychiatric: normal affect, A&O x 3 Deviation from normal: See MSK Dx/Plan - Plan Plan: Patient is a 78 y/o male who presents to the ED following a fall. 1) Hx of Fall - Likely 2/2 to physical deconditioning and UTI - patient uses a walker at baseline - CT Brain: NAF - CT C-Spine: NAF - CXR: NAF - CT Pelvis/Hips: NAF - Case Medical Donation Professional: Pending responses from [facility] - denied by [facility] is out of network - PT/OT Consult: Pending - UCx: Gm(-) Rods - Susceptible to Zosyn, Nitrofurantoin, Amikacin, Meropenem - s/p Ceftriaxone x2 - Chronic LLE wound may be contributing factor - says that he had a "spider bite 2 years ago" 2) Macrocytic Anemia - Likely chronic - B12: WNL - Folate: WNL - Currently supplementing w/ PO Folic Acid 3) TEOFILO on CKD - Cr: 1.56 > 1.81 on 08/06 - Cr/eGFR improved compared to previous - Continue to monitor 4) Hx of CHF - No evidence for fluid overload - Monitor I/Os - Monitor respiratory status - Continue home medication regimen PCP: JENNY Lerma Code Status: DNAR Diet: HH w/ Low Sodium Activity: Ambulate w/ Assist VTE PPx: Lovenox, Renally Dosed Dispo: Patient is currently stable on the Medical Floor. Imaging has been negative to date - physical deconditioning and UTI appear to be likely contributing factors to recent falls. Continue IV ABx and transition to PO when appropriate. Await Case Management recs for SNF placement. Expected LOS > 48H. Addendum - Attending - Attending Attestation Date/Time: 08/05/19 5287 I personally evaluated the patient and discussed the management with Dr. Sanchez. I agree with the History, Examination, Assessment and Plan documented above with any addition or exceptions noted below. The patient UTI is ESBL+ e.coli. He has been swapped to zosyn. Continue antibiotics while awaiting placement. His insurance changes today to [employer] so pt needs a new insurance auth for SNF placement.
[2019-08-05] MEDS ORDERED: Lactated Ringer's 1,000 ML IV SCH (06:00)
[2019-08-05] MEDS: Lactated Ringer's 1,000 ML IV SCH ×2 (06:37→16:14)
[2019-08-05 06:39] LABS: Anion Gap 17 mmol/L (10-20); BUN (Urea Nitrogen) 18 mg/dL (8.4-25.7); Calc. Creatinine Clearance 67 mL/min (70-130); Carbon Dioxide 19 mmol/L (23-31); Chloride 104 mmol/L (98-107); Estimated GFR-MDRD 41; Glucose 86 mg/dL (83-110); Potassium 3.6 mmol/L (3.5-5.1); Sodium 136 mmol/L (136-145)
[2019-08-05] MEDS: Famotidine 20 MG TAB PO SCH (10:44)
[2019-08-05] MEDS: Furosemide 40 MG TAB PO SCH ×2 (10:44→20:42)
[2019-08-05] MEDS: Potassium Chloride 20 MEQ TAB PO SCH (10:44)
[2019-08-05] MEDS: Ferrous Sulfate 325 MG TAB PO SCH (10:45)
[2019-08-05] MEDS: Carvedilol 6.25 MG TAB PO SCH ×2 (10:45→16:14)
[2019-08-05] MEDS: Folic Acid 1 MG TAB PO SCH (10:45)
[2019-08-05] MEDS: Enoxaparin Sodium 30 MG/0.3 ML SYRINGE SC SCH (10:57)
--- NOTE | 2019-08-05 11:44 | PDOC.EVN ---
Event Note - Event Note Event Note: At 1130 on 08/05 the Resident Medicine Team was notified that the patient was attempting to leave AMA. Per Nursing staff, the patient was A&Ox4. The patient was sitting up in bed at the time of evaluation, and was encouraged to stay in the hospital in order to continue to receive IV ABx therapy. Additionally, the patient was encouraged to stay in bed due to his high risk of falls - he verbalized understanding and agreed to stay in bed. Lastly, the patient expressed concern that he would "lose the house." The resident informed the patient that the Electrical Helper would be notified in order to assist as needed with domestic and/or financial issues. The patient apologized for being agitated, and thanked the resident for his time.
[2019-08-05] MEDS: Bupropion 150 MG XL TAB PO SCH (11:49)
[2019-08-05] MEDS: Acetaminophen 325 MG TAB PO PRN (20:48)
[2019-08-06] MEDS: Lactated Ringer's 1,000 ML IV SCH (04:00)
[2019-08-06] MEDS: traMADol HCl 50 MG TAB PO PRN ×3 (05:12→20:14)
[2019-08-06] MEDS: Piperacillin/Tazobactam 3.375 GM in Sodium Chloride 0.9% 100 ML IVPB SCH ×3 (05:14→21:04)
[2019-08-06] MEDS: Acetaminophen 325 MG TAB PO PRN ×2 (05:38→21:04)
--- NOTE | 2019-08-06 06:00 | PDOC.FM ---
- Subjective Subjective: Patient was sleeping at the time of evaluation but was easily arousable. He stated that he was frustrated with his nursing care over the evening, and that they had not changed his brief in some time. Visual inspection of his brief was negative for any stool or excessive urine - the patient seemed unaware of this at the time. He denied any other acute overnight events, but continued to voice concern about the need for his bills to be paid and "things to take care of." His daughter was not present at the time of evaluation. - Objective Vital Signs & Weight: Vital Signs (12 hours) Temp Pulse Resp BP Pulse Ox 08/05/19 20:45 92 L 08/05/19 19:57 98.2 F 77 18 122/74 92 L Weight Admit Weight 125.645 kg Weight 125.736 kg I&O: 08/04/19 08/05/19 08/06/19 06:59 06:59 06:59 Intake Total 1050 1580 Output Total 900 2100 Balance 150 -520 Result Diagrams: 08/04/19 08:22 08/06/19 05:49 Phys Exam - Physical Examination Constitutional: NAD HEENT: moist MMs, sclera anicteric, oral pharynx no lesions Neck: supple, full ROM Respiratory: no wheezing, no rales, no rhonchi, clear to auscultation bilateral Cardiovascular: RRR, no significant murmur, no rub Gastrointestinal: soft, non-tender, no distention, positive bowel sounds Musculoskeletal: no edema, pulses present Neurological: moves all 4 limbs Restricted movement due to physical deconditioning Psychiatric: A&O x 3 Skin: no rash Dx/Plan (1) ESBL (extended spectrum beta-lactamase) producing bacteria infection Code(s): A49.9 - BACTERIAL INFECTION, UNSPECIFIED; Z16.12 - EXTENDED SPECTRUM BETA LACTAMASE (ESBL) RESISTANCE Status: Acute (2) Fall Code(s): W19.XXXA - UNSPECIFIED FALL, INITIAL ENCOUNTER Status: Acute (3) Macrocytic anemia Code(s): D53.9 - NUTRITIONAL ANEMIA, UNSPECIFIED Status: Chronic (4) Physical deconditioning Code(s): R53.81 - OTHER MALAISE Status: Chronic (5) UTI (urinary tract infection) Status: Acute - Plan Plan: Patient is a 78 y/o male who presents to the ED following a fall. 1) ESBL UTI - Likely contributed to fall along w/ physical deconditioning - patient uses a walker at baseline - CT Brain: NAF - CT C-Spine: NAF - CXR: NAF - CT Pelvis/Hips: NAF - Case Shop Tailor: Patient recently switched insurance providers - additional input required - PT/OT Consult: Patient requires max assist w/ ADLs and declined several portions of treatment - UCx: ESBL E. coli - Susceptible to Zosyn, Nitrofurantoin, Amikacin, Meropenem - s/p Ceftriaxone x2 - currently on Zosyn - Chronic LLE wound may be contributing factor - says that he had a "spider bite 2 years ago" 2) Macrocytic Anemia - Likely chronic - B12: WNL - Folate: WNL - Currently supplementing w/ PO Folic Acid 3) TEOFILO on CKD - Cr: 1.56 > 1.63 on 08/06 - Cr/eGFR improved compared to previous - Continue to monitor 4) Hx of CHF - No evidence for fluid overload - Monitor I/Os - Monitor respiratory status - Continue home medication regimen PCP: JENNY Lerma Code Status: DNAR Diet: HH w/ Low Sodium Activity: Ambulate w/ Assist VTE PPx: Lovenox, Renally Dosed Dispo: Patient is currently stable on the Medical Floor. Imaging has been negative to date - ESBL UTI and physical deconditioning appear to be likely causal factors of recent falls. Continue IV ABx and transition to PO when appropriate. Reengage with Patient, Patient's daughter and Case Management for placement. Expected LOS > 48H. Addendum - Attending - Attending Attestation Date/Time: 08/06/19 5651 I personally evaluated the patient and discussed the management with Dr. Sanchez. I agree with the History, Examination, Assessment and Plan documented above with any addition or exceptions noted below. The patient was resting and noted he felt weak this morning. Continue antibiotics. Will d/c fluids. Creatinine is back to baseline. Waiting on placement.
[2019-08-06 06:42] LABS: Anion Gap 17 mmol/L (10-20); BUN (Urea Nitrogen) 18 mg/dL (8.4-25.7); Calc. Creatinine Clearance 67 mL/min (70-130); Calcium 8.7 mg/dL (7.8-10.44); Carbon Dioxide 20 mmol/L (23-31); Chloride 103 mmol/L (98-107); Estimated GFR-MDRD 41; Glucose 77 mg/dL (83-110); Potassium 3.5 mmol/L (3.5-5.1); Sodium 136 mmol/L (136-145)
[2019-08-06] MEDS: Carvedilol 6.25 MG TAB PO SCH ×2 (08:50→17:17)
[2019-08-06] MEDS: Ferrous Sulfate 325 MG TAB PO SCH (08:50)
[2019-08-06] MEDS: Enoxaparin Sodium 30 MG/0.3 ML SYRINGE SC SCH (08:50)
[2019-08-06] MEDS: Potassium Chloride 20 MEQ TAB PO SCH (08:50)
[2019-08-06] MEDS: Furosemide 40 MG TAB PO SCH ×2 (08:50→20:14)
[2019-08-06] MEDS: Fluconazole 100 MG TAB PO SCH (08:50)
[2019-08-06] MEDS: Folic Acid 1 MG TAB PO SCH (08:50)
[2019-08-06] MEDS: Famotidine 20 MG TAB PO SCH (08:55)
[2019-08-06] MEDS: Bupropion 150 MG XL TAB PO SCH (11:43)
[2019-08-07] MEDS: Piperacillin/Tazobactam 3.375 GM in Sodium Chloride 0.9% 100 ML IVPB SCH ×3 (05:28→21:24)
[2019-08-07] MEDS: traMADol HCl 50 MG TAB PO PRN ×3 (05:32→20:20)
--- NOTE | 2019-08-07 06:53 | PDOC.FM ---
- Subjective Subjective: Patient was resting comfortably in his hospital bed at the time of evaluation. He denied any acute overnight events, to include fevers or ABD pain. He remained amenable to being DC'd to a NH w/ PT or a SNF. - Objective Vital Signs & Weight: Vital Signs (12 hours) Temp Pulse Resp BP Pulse Ox 08/06/19 20:10 98.2 F 71 18 122/75 94 L Weight Admit Weight 125.645 kg Weight 125.736 kg I&O: 08/05/19 08/06/19 08/07/19 06:59 06:59 06:59 Intake Total 1580 1600 670 Output Total 2100 900 600 Balance -520 700 70 Result Diagrams: 08/07/19 08:25 08/07/19 08:25 Phys Exam - Physical Examination Constitutional: NAD HEENT: PERRLA, moist MMs, sclera anicteric, oral pharynx no lesions Neck: supple, full ROM Respiratory: no wheezing, no rales, no rhonchi, clear to auscultation bilateral Cardiovascular: RRR, no significant murmur, no rub Gastrointestinal: soft, non-tender, no distention, positive bowel sounds Musculoskeletal: no edema, pulses present Neurological: non-focal, moves all 4 limbs Psychiatric: normal affect, A&O x 3 Skin: no rash Dx/Plan (1) ESBL (extended spectrum beta-lactamase) producing bacteria infection Code(s): A49.9 - BACTERIAL INFECTION, UNSPECIFIED; Z16.12 - EXTENDED SPECTRUM BETA LACTAMASE (ESBL) RESISTANCE Status: Acute (2) Fall Code(s): W19.XXXA - UNSPECIFIED FALL, INITIAL ENCOUNTER Status: Acute (3) Macrocytic anemia Code(s): D53.9 - NUTRITIONAL ANEMIA, UNSPECIFIED Status: Chronic (4) Physical deconditioning Code(s): R53.81 - OTHER MALAISE Status: Chronic (5) UTI (urinary tract infection) Status: Acute - Plan Plan: Patient is a 78 y/o male who presents to the ED following a fall. 1) ESBL UTI - Likely contributed to fall along w/ physical deconditioning - patient uses a walker at baseline - CT Brain: NAF - CT C-Spine: NAF - CXR: NAF - CT Pelvis/Hips: NAF - Case Astrobiologist: Patient recently stated that he switched insurance providers - per his daughter this is not true - additional input from Case Management required - PT/OT Consult: Patient requires max assist w/ ADLs and declined several portions of treatment - UCx: ESBL E. coli - Susceptible to Zosyn, Nitrofurantoin, Amikacin, Meropenem - s/p Ceftriaxone x2 - currently on Zosyn - Chronic LLE wound may be contributing factor - says that he had a "spider bite 2 years ago" - Patient remains at high risk for falls, and is amenable to placement in NH w/ PT vs. SNF - will continue discussions with daughter and Case Management, as there appears to be confusion over insurance provider 2) Macrocytic Anemia - Likely chronic - B12: WNL - Folate: WNL - Currently supplementing w/ PO Folic Acid 3) TEOFILO on CKD - Cr: 1.56 > 1.63 on 08/06 - Cr/eGFR improved compared to previous - Continue to monitor 4) Hx of CHF - No evidence for fluid overload - Monitor I/Os - Monitor respiratory status - Continue home medication regimen PCP: JENNY Lerma Code Status: DNAR Diet: HH w/ Low Sodium Activity: Ambulate w/ Assist VTE PPx: Lovenox, Renally Dosed Dispo: Patient is currently stable on the Medical Floor. Imaging has been negative to date - ESBL UTI and physical deconditioning appear to be likely causal factors of recent falls. Continue IV ABx and transition to PO when appropriate. Reengage with Patient, Patient's daughter and Case Management for placement. Expected LOS > 48H. Addendum - Attending - Attending Attestation Date/Time: 08/07/19 0338 I personally evaluated the patient and discussed the management with Dr. Sanchez. I agree with the History, Examination, Assessment and Plan documented above with any addition or exceptions noted below. Overall improving compared with prior notes. Persistent + culture as was tx with Abx that organism was resistant to. Likely will continue IV and consider switching to nitrofurantoin after considering r/b/a in light of eGFR.
[2019-08-07] MEDS: Enoxaparin Sodium 30 MG/0.3 ML SYRINGE SC SCH (08:14)
[2019-08-07] MEDS: Famotidine 20 MG TAB PO SCH (08:16)
[2019-08-07] MEDS: Furosemide 40 MG TAB PO SCH ×2 (08:16→20:20)
[2019-08-07] MEDS: Potassium Chloride 20 MEQ TAB PO SCH (08:17)
[2019-08-07] MEDS: Bupropion 150 MG XL TAB PO SCH (08:18)
[2019-08-07] MEDS: Ferrous Sulfate 325 MG TAB PO SCH (08:18)
[2019-08-07] MEDS: Folic Acid 1 MG TAB PO SCH (08:18)
[2019-08-07] MEDS: Carvedilol 6.25 MG TAB PO SCH ×2 (08:18→17:40)
[2019-08-07 08:34] LABS: Hemoglobin 10.2 g/dL (14.0-18.0); Mean Corpuscular HGB CONC 31.7 g/dL (32.0-36.0); Mean Corpuscular Hemoglobin 32.9 pg (27.0-31.0); Mean Platelet Volume 9.2 fL (7.4-10.4); Platelet Count 187 thou/uL (130-400); Red Blood Cell (RBC) Count 3.11 mill/uL (4.70-6.10); White Blood Cell (WBC) Count 5.1 thou/uL (4.8-10.8)
[2019-08-07 08:51] LABS: Anion Gap 14 mmol/L (10-20); BUN (Urea Nitrogen) 17 mg/dL (8.4-25.7); Calc. Creatinine Clearance 63 mL/min (70-130); Calcium 9.1 mg/dL (7.8-10.44); Carbon Dioxide 24 mmol/L (23-31); Chloride 101 mmol/L (98-107); Estimated GFR-MDRD 38; Glucose 91 mg/dL (83-110); Potassium 3.7 mmol/L (3.5-5.1); Sodium 135 mmol/L (136-145)
[2019-08-07 08:57] LABS: Band 7 % (5-11); Eosinophils 1 % (0-10); Lymphocytes 35 % (21-51); MDiff Complete? YES; Macrocytosis SLIGHT = 6-15 cells (100X) (0-5/hpf); Monocytes 27 % (0-10); Neutrophil 30 % (42-75); Platelet Morphology Comment Appears Adequate
[2019-08-07] MEDS: Acetaminophen 325 MG TAB PO PRN ×2 (10:23→21:24)
--- NOTE | 2019-08-07 12:36 | PQF ---
JAEOG PHILIP *r [id number] CLINICAL DOCUMENTATION IMPROVEMENT CLARIFICATION FORM: ICD-10 Updated PLEASE DO AN ADDENDUM TO THE PROGRESS NOTE WITH ANY DOCUMENTATION UPDATES OR ADDITIONS AND CARRY THROUGH TO DC SUMMARY. THANK YOU. DATE: 08/07/2019 ATTN: DR. Su MAKI Please exercise your independent, professional judgment in responding to the clarification form. Clinical indicators are provided on the bottom of this form for your review. Please check appropriate box(s): [ X ] Hyponatremia please specify etiology, if known [ ] Hyponatremia due to SIADH (Syndrome of Inappropriate Secretion of Antidiuretic Hormone) [ ] Other diagnosis [ ] Unable to determine In addition, please specify: Present on Admission (POA): [ ] Yes [ X ] No [ ] Unable to determine CLINICAL INDICATORS - SIGNS / SYMPTOMS / LABS / RESULTS AND LOCATION IN EMR 08/02 SODIUM 133 08/03 SODIUM 131 RISK: ADVANCED AGE (78) , HX CKD ( H&P/JACQUELINE) 08/02 TREATMENTS: SERIAL LABS ( 08/02 - PRESENT) LACTATED RINGERS IVF ( 08/05-08/06) THANK YOU ! [facility] (This form is maintained as a part of the permanent medical record) 2014 [employer] All Rights Reserved [email or web address] [phone] MTDD
--- NOTE | 2019-08-08 05:07 | PDOC.FM ---
- Subjective Subjective: Patient was resting comfortably at the time of evaluation. He stated that overnight he called 911 because he had a nightmare and thought that someone was attempting break into his room. He denied any fevers, chills, CP or SOB. - Objective Vital Signs & Weight: Vital Signs (12 hours) Temp Pulse Resp BP BP Pulse Ox 08/07/19 20:20 93 L 08/07/19 20:00 98.1 F 67 16 116/60 92 L 08/07/19 17:40 124/72 Weight Admit Weight 125.645 kg Weight 125.736 kg I&O: 08/06/19 08/07/19 08/08/19 06:59 06:59 06:59 Intake Total 1600 670 Output Total 900 600 Balance 700 70 Result Diagrams: 08/07/19 08:25 08/08/19 05:27 Phys Exam - Physical Examination Constitutional: NAD HEENT: PERRLA, moist MMs, sclera anicteric, oral pharynx no lesions Neck: supple, full ROM Respiratory: no wheezing, no rales, no rhonchi, clear to auscultation bilateral Cardiovascular: RRR, no significant murmur, no rub Gastrointestinal: soft, non-tender, no distention, positive bowel sounds Musculoskeletal: no edema, pulses present Bandages in place on LLE Neurological: non-focal, moves all 4 limbs Psychiatric: normal affect, A&O x 3 Skin: no rash Dx/Plan (1) ESBL (extended spectrum beta-lactamase) producing bacteria infection Code(s): A49.9 - BACTERIAL INFECTION, UNSPECIFIED; Z16.12 - EXTENDED SPECTRUM BETA LACTAMASE (ESBL) RESISTANCE Status: Acute (2) Fall Code(s): W19.XXXA - UNSPECIFIED FALL, INITIAL ENCOUNTER Status: Acute (3) Macrocytic anemia Code(s): D53.9 - NUTRITIONAL ANEMIA, UNSPECIFIED Status: Chronic (4) Physical deconditioning Code(s): R53.81 - OTHER MALAISE Status: Chronic (5) UTI (urinary tract infection) Status: Acute - Plan Plan: Patient is a 78 y/o male who presents to the ED following a fall. 1) ESBL UTI - Likely contributed to fall along w/ physical deconditioning - patient uses a walker at baseline - All imaging negative upon presentation - UCx: ESBL E. coli x2 - Susceptible to Zosyn, Nitrofurantoin, Amikacin, Meropenem - s/p Ceftriaxone x2 - currently on Zosyn 3.375 g Q8H - will switch to PO Nitrofurantoin prior to DC - PT/OT Consult: Patient requires max assist w/ ADLs and declined several portions of treatment - Patient remains at high risk for falls, and is amenable to placement in NH w/ PT vs. SNF - will continue discussions with daughter and Case Management, as there appears to be confusion over insurance provider 2) Macrocytic Anemia - Likely chronic - B12: WNL / Folate: WNL - Currently supplementing w/ PO Folic Acid 3) TEOFILO on CKD - Will not treat aggressively due to #4 - s/p gentle rehydration w/ IVF - DC'd - Continue to monitor 4) Hx of CHF - No evidence for fluid overload - Monitor I/Os - Monitor respiratory status - Continue home medication regimen PCP: JENNY Lerma Code Status: DNAR Diet: HH w/ Low Sodium Activity: Ambulate w/ Assist VTE PPx: Lovenox, Renally Dosed Dispo: Patient is currently stable on the Medical Floor. Imaging has been negative to date - ESBL UTI and physical deconditioning appear to be likely causal factors of recent falls. Continue IV ABx and transition to PO when appropriate. Reengage with Patient, Patient's daughter and Case Management for placement - awaiting response from [facility]. Expected LOS > 48H Addendum - Attending - Attending Attestation Date/Time: 08/08/19 1220 I personally evaluated the patient and discussed the management with Dr. Sanchez. I agree with the History, Examination, Assessment and Plan documented above with any addition or exceptions noted below. Also denies n/v. D/c pending placement. D/c zosyn after 5 days, will complete course with macrobid. See prior discussion that I feel it is reasonable despite GFR 30-60.
[2019-08-08] MEDS: traMADol HCl 50 MG TAB PO PRN ×2 (05:18→17:02)
[2019-08-08] MEDS: Piperacillin/Tazobactam 3.375 GM in Sodium Chloride 0.9% 100 ML IVPB SCH ×2 (05:19→14:55)
[2019-08-08 05:58] LABS: Anion Gap 15 mmol/L (10-20); BUN (Urea Nitrogen) 17 mg/dL (8.4-25.7); Calc. Creatinine Clearance 63 mL/min (70-130); Calcium 9.1 mg/dL (7.8-10.44); Carbon Dioxide 24 mmol/L (23-31); Chloride 100 mmol/L (98-107); Estimated GFR-MDRD 38; Glucose 78 mg/dL (83-110); Potassium 3.6 mmol/L (3.5-5.1); Sodium 135 mmol/L (136-145)
[2019-08-08] MEDS: Carvedilol 6.25 MG TAB PO SCH ×2 (08:28→17:04)
[2019-08-08] MEDS: Ferrous Sulfate 325 MG TAB PO SCH (08:29)
[2019-08-08] MEDS: Folic Acid 1 MG TAB PO SCH (08:29)
[2019-08-08] MEDS: Furosemide 40 MG TAB PO SCH ×2 (08:30→20:01)
[2019-08-08] MEDS: Famotidine 20 MG TAB PO SCH (08:30)
[2019-08-08] MEDS: Bupropion 150 MG XL TAB PO SCH (08:30)
[2019-08-08] MEDS: Potassium Chloride 20 MEQ TAB PO SCH (08:30)
[2019-08-08] MEDS: Enoxaparin Sodium 30 MG/0.3 ML SYRINGE SC SCH (08:30)
[2019-08-08] MEDS ORDERED: Nitrofurantoin Monohyd/M-Cryst 100 MG CAP PO SCH (17:00)
[2019-08-08] MEDS: Acetaminophen 325 MG TAB PO PRN (20:14)
[2019-08-09] MEDS: traMADol HCl 50 MG TAB PO PRN (06:22)
--- NOTE | 2019-08-09 06:25 | PDOC.FM ---
- Subjective Subjective: Patient was resting comfortably in bed, finishing his breakfast, at the time of evaluation. He denied any acute overnight events, specifically with regard to fevers, chills, N/V, CP or SOB. He stated that his leg pain was greatly improved from previous evaluations. - Objective Vital Signs & Weight: Vital Signs (12 hours) Temp Pulse Resp BP Pulse Ox 08/08/19 19:55 93 L 08/08/19 19:35 98.3 F 74 18 145/86 H 93 L Weight Admit Weight 125.645 kg Weight 125.736 kg I&O: 08/07/19 08/08/19 08/09/19 06:59 06:59 06:59 Intake Total 137 391 6827 Output Total 600 550 Balance 70 720 970 Result Diagrams: 08/07/19 08:25 08/09/19 05:57 Phys Exam - Physical Examination Constitutional: NAD HEENT: moist MMs, sclera anicteric, oral pharynx no lesions Neck: supple, full ROM Respiratory: no rales, no rhonchi Scattered wheezes Cardiovascular: RRR, no significant murmur, no rub Gastrointestinal: soft, non-tender, no distention, positive bowel sounds Musculoskeletal: no edema, pulses present Neurological: non-focal, moves all 4 limbs Skin: no rash Dx/Plan (1) ESBL (extended spectrum beta-lactamase) producing bacteria infection Code(s): A49.9 - BACTERIAL INFECTION, UNSPECIFIED; Z16.12 - EXTENDED SPECTRUM BETA LACTAMASE (ESBL) RESISTANCE Status: Acute (2) Fall Code(s): W19.XXXA - UNSPECIFIED FALL, INITIAL ENCOUNTER Status: Acute (3) Macrocytic anemia Code(s): D53.9 - NUTRITIONAL ANEMIA, UNSPECIFIED Status: Chronic (4) Physical deconditioning Code(s): R53.81 - OTHER MALAISE Status: Chronic (5) UTI (urinary tract infection) Status: Acute - Plan Plan: Patient is a 78 y/o male who presents to the ED following a fall. 1) ESBL UTI - Likely contributed to fall along w/ physical deconditioning - patient uses a walker at baseline - All imaging negative upon presentation - UCx: ESBL E. coli x2 - Susceptible to Zosyn, Nitrofurantoin, Amikacin, Meropenem - s/p Ceftriaxone x2 - previously on Zosyn 3.375 g Q8H for 4 days - currently on PO Nitrofurantoin PO BID - PT/OT Consult: Patient requires max assist w/ ADLs and declined several portions of treatment - Patient remains at high risk for falls, and is amenable to placement in NH w/ PT vs. SNF - will continue discussions with daughter and Case Management, as there appears to be confusion over insurance provider -[id number] w/ [employer] on 08/08 - awaiting decision for placement 2) Macrocytic Anemia - Likely chronic - B12: WNL / Folate: WNL - Currently supplementing w/ PO Folic Acid 3) TEOFILO on CKD - Will not treat aggressively due to #4 - s/p gentle rehydration w/ IVF - DC'd - Continue to monitor 4) Hx of CHF - No evidence for fluid overload - Monitor I/Os - Monitor respiratory status - Continue home medication regimen PCP: JENNY Lerma Code Status: DNAR Diet: HH w/ Low Sodium Activity: Ambulate w/ Assist VTE PPx: Lovenox, Renally Dosed Dispo: Patient is currently stable on the Medical Floor. Imaging has been negative to date - ESBL UTI and physical deconditioning appear to be likely causal factors of recent falls. Continue PO ABx as per above. Continue to engage with Patient, Patient's daughter and Case Management for placement. Expected LOS < 48H Addendum - Attending - Attending Attestation Date/Time: 08/09/19 [id number] I personally evaluated the patient and discussed the management with Dr. Sanchez and team. I agree with the History, Examination, Assessment and Plan documented above with any addition or exceptions noted below.
[2019-08-09 06:28] LABS: Anion Gap 16 mmol/L (10-20); BUN (Urea Nitrogen) 18 mg/dL (8.4-25.7); Calc. Creatinine Clearance 63 mL/min (70-130); Calcium 9.5 mg/dL (7.8-10.44); Carbon Dioxide 21 mmol/L (23-31); Chloride 101 mmol/L (98-107); Estimated GFR-MDRD 38; Glucose 82 mg/dL (83-110); Potassium 3.7 mmol/L (3.5-5.1); Sodium 134 mmol/L (136-145)
[2019-08-09 07:46] VITALS: BP 135/80; TEMP 97.6
[2019-08-09] MEDS: Fluconazole 100 MG TAB PO SCH (08:30)
[2019-08-09] MEDS: Ferrous Sulfate 325 MG TAB PO SCH (08:31)
[2019-08-09] MEDS: Potassium Chloride 20 MEQ TAB PO SCH (08:31)
[2019-08-09] MEDS: Famotidine 20 MG TAB PO SCH (08:31)
[2019-08-09] MEDS: Carvedilol 6.25 MG TAB PO SCH (08:31)
[2019-08-09] MEDS: Furosemide 40 MG TAB PO SCH (08:31)
[2019-08-09] MEDS: Folic Acid 1 MG TAB PO SCH (08:31)
[2019-08-09] MEDS: Enoxaparin Sodium 30 MG/0.3 ML SYRINGE SC SCH (08:33)
[2019-08-09] MEDS: Bupropion 150 MG XL TAB PO SCH (08:35)
[2019-08-09] MEDS ORDERED: Nitrofurantoin Monohyd/M-Cryst 100 MG CAP PO SCH (09:00)
[2019-08-09] MEDS: Acetaminophen 325 MG TAB PO PRN (12:48)
--- NOTE | 2019-08-10 06:03 | PQF ---
"OG ROWE BRANDON [id number] CLINICAL DOCUMENTATION CLARIFICATION FORM: POST DISCHARGE Addendum to original discharge summary date: ____ Late entry note date: __ DATE:08/10/2019 ATTN: Ebenezer Dotson Please exercise your independent, professional judgment in responding to the clarification form. Clinical indicators are provided on the bottom of this form for your review Please check appropriate box(es): [ ] Sepsis due to UTI [ ] Severe sepsis with acute organ dysfunction of TEOFILO [ ] Septic Shock [ ] Localized infection without sepsis [ x] Other diagnosis UTI without sepsis [ ] Unable to determine In addition, please specify: Present on Admission (POA): [ x] Yes [ ] No [ ] Unable to determine For continuity of documentation, please document condition throughout progress notes and discharge summary. Thank You. CLINICAL INDICATORS - SIGNS / SYMPTOMS / LABS Laboratory Hematology 08/02 -WBC 9.7, Band Neuts 18, Neutrophils 32 Urine Culture 08/02 Escherichia Coli ED notes p1 08/02 SIRS scoring: yes, patient did meet at least 1 criteria for STEP 2 ED notes p1 08/02 Vitals Signs BP 119/59, Pulse 89, Resp 17, Temp 98.2 Family Medicine PN p2 08/02 Dr Nguyen UA: consistent with infection Family Medicine PN p2 08/02 Dr Nguyen Chronic LLE wound may be contributing factors- says that he has a spider bite 2 years ago Family Medicine PN p3 08/02 Dr Nguyen Physical deconditioning appears to be likely contributing factors with aforementioned suspected UTI RISK FACTORS Family Medicine H&P p1 08/02 78 year old Male Family Medicine H&P p1 08/02 BPH Family Medicine H&P p2 08/02 Mesothelioma Family Medicine H&P p4 08/02 Macrocytic Anemia Family Medicine PN p2 08/02 - TEOFILO on CKD Family Medicine PN p3 08/02 UTI TREATMENTS: SEP 02 IV Ceftriaxone Sodium 1gm SEP 02 IV Zosyn 100mls MAR 08/02 IV Fluids SEP 03 Macrobid 100mg PO Ordered 08/02 Urine Culture obtained Family Medicine PN p2 08/02 - Consider LR 500ml Bolus (This form is maintained as a part of the permanent medical record) 2014 [employer]. All Rights Reserved Marizol [email or web address]
--- NOTE | 2019-08-10 06:05 | DIS ---
DATE OF ADMISSION: 08/02/2019 DATE OF DISCHARGE: 08/09/2019 RESIDENT: Romario Sanchez MD ADMITTING ATTENDING: Fernando Lee MD DISCHARGE ATTENDING: Ebenezer Cobos MD CONSULTS: None. PROCEDURES: CT brain without contrast showing no acute intracranial abnormality. CT-spine cervical, noncontrast showing cervical spondylosis. No evidence of acute fracture or acute traumatic subluxation, total opacification of the right tympanomastoid cavity, hip and pelvic x-ray showing no evidence of acute osseous abnormality. Hip x-ray lateral, 2-view, showing no evidence of acute osseous abnormality. Chest x-ray showing no evidence of acute cardiopulmonary disease. PRIMARY DIAGNOSIS: Extended spectrum beta-lactamases urinary tract infection. SECONDARY DIAGNOSES: 1. Macrocytic anemia. 2. Hsnru-sy-ydncbqs kidney disease. 3. History of congestive heart failure. 4. History of mesothelioma. 5. History of falls. 6. Morbid obesity. DISCHARGE MEDICATIONS: Macrobid 100 mg p.o. b.i.d. for 2 days. DISCONTINUED MEDICATIONS: 1. Acetaminophen 650 mg p.o. q.4 hours. 2. Bupropion 300 mg p.o. daily. 3. Carvedilol 6.25 mg p.o. b.i.d. 4. Lovenox 30 mg subcutaneous daily. 5. Famotidine 20 mg p.o. daily. 6. Ferrous sulfate 325 mg p.o. daily. 7. Fluconazole 150 mg p.o. every 3 days. 8. Folic acid 1 mg p.o. daily. 9. Furosemide 40 mg p.o. b.i.d. 10. Macrobid 100 mg p.o. b.i.d. 11. K-Dur 20 mEq p.o. daily. 12. Tramadol 50 mg p.o. q.6 hours p.r.n. HISTORY OF PRESENT ILLNESS/HOSPITAL COURSE: Mr. Lind is a 78-year-old male with a past medical historysignificant for CHF, hypertension, history of mesothelioma, benign prostatic hypertrophy, and recent falls, who presents to the ED after 2 additional falls earlier in the morning on 08/02/2019. He lives at home alone and usually ambulates with a walker and cane, normally manages activities of daily living on his own. He states that his legs just felt weak and he fell. The daughter was with him in the emergency department and stated that she calls to check up on him on most days and he has no complaints recently. He denies any vision changes, headaches, chest pain, shortness of breath, palpitations, nausea, vomiting, abdominal pain, dysuria, or GI bleeding. He complained of hip and leg pain in the ED and had a negative chest x-ray. Hip and pelvic x-ray, the results of which are documented elsewhere in this document. Getting him set up with rehab was attempted in the ED, but was unsuccessful and the daughter did not feel comfortable with him going home alone. In the ED, he was given 4 mg of morphine for pain. Also, he was found to have an abnormal urinalysis demonstrating +2 bacteria, greater than 50 white blood cells, 7-10 red blood cells, leukocyte esterase and urine blood. As such he was started on ceftriaxone 1 g q.24 hours and cultures were sent to microbiology. Two days later, the cultures resulted in an extended spectrum beta lactamase UTI, susceptible to Zosyn, amikacin, and nitrofurantoin and as such, he was subsequently started on Zosyn 3.375 g q.8 hours. His condition improved during his hospitalization and he was subsequently transitioned to p.o. nitrofurantoin 100 mg p.o. b.i.d. in prep for discharge. Following insurance authorization, he was accepted at a local group home facility, which was necessary due to his limited mobility, morbid obesity and physical deconditioning. Prior to discharge, his vital signs were recorded as temperature 97.6, pulse 95, blood pressure 135/80, respirations 20 per minute, O2 saturations 91% on room air. LABORATORY ANALYSIS: Revealed a white blood cell count of 5.1, hemoglobin 10.2, hematocrit 32.2, platelet count 187. Chem panel revealed a sodium 134, potassium 3.7, chloride 101, carbon dioxide 21, BUN 18, creatinine 1.75, glucose 82, calcium 9.2, AST 30, ALT 12, alkaline phosphatase 9.2, vitamin B12 268, within normal limits. Folate 11.5, within normal limits. TSH 4.5126 within normal limits. DISPOSITION: 1. Location: [facility]. 2. Diet: Heart healthy. 3. Activity: The patient will likely require PT and OT as well as ambulate with assistance. 4. The patient was advised to follow up with his primary care provider in 1 to 2 weeks or discuss his most recent hospitalization. Job ID: [id number] [email or web address]
== END 2019-08-09 14:35 | DRG 690 ==
LOC: ERS 07:06 → 2SW 14:06 → OBSVTOIN 14:06 → T4-B 08-04 18:19
PROVIDERS: ADMIT Family Medicine; ATTEND Family Medicine
DX: N39.0 Urinary tract infection, site not specified (principal); N17.9 Acute kidney failure, unspecified; E87.1 Hypo-osmolality and hyponatremia; I13.0 Hypertensive heart and chronic kidney disease with heart failure and stage 1 through stage 4 chronic kidney disease, or unspecified chronic kidney disease; I42.0 Dilated cardiomyopathy; Z66 Do not resuscitate; B96.20 Unspecified Escherichia coli [E. coli] as the cause of diseases classified elsewhere; D53.9 Nutritional anemia, unspecified; N18.3 Chronic kidney disease, stage 3 (moderate); I50.9 Heart failure, unspecified; N40.0 Benign prostatic hyperplasia without lower urinary tract symptoms; R29.6 Repeated falls; Z23 Encounter for immunization; Z79.899 Other long term (current) drug therapy
CPT/HCPCS: 36415; 70450; 71045; 72125; 72170; 80048; 80053; 81001; 82607; 82746; 83735; 84100; 84443; 85025; 87077; 87086; 87186; 90471; 90662; 93005; 96374; G0008; J0696; J1650; J2270; J2543; J3490

== ENCOUNTER 2020-02-03 17:14 | Observation (INO) | payer MEDICARE, OTHER ==
[~2020-02-03 17:14] MED LIST changes: +Iopamidol-370 76% 500 ML 1 ML ONE; -Sodium Chloride 0.9% 15 ML NEB ONE
[2020-02-03 17:51] LABS: Hemoglobin 10.4 g/dL (14.0-18.0); Mean Corpuscular HGB CONC 33.9 g/dL (32.0-36.0); Mean Corpuscular Hemoglobin 35.9 pg (27.0-31.0); RBC Distribution Width 14.6 % (11.5-14.5); Red Blood Cell (RBC) Count 2.89 mill/uL (4.70-6.10); White Blood Cell (WBC) Count 4.7 thou/uL (4.8-10.8)
--- NOTE | 2020-02-03 17:56 | RAD ---
EXAM: Single view of the chest HISTORY: Fall with chest trauma COMPARISON: 08/02/2019 FINDINGS: Single view of the chest shows a normal sized cardiomediastinal silhouette. There is no monico dence of consolidation, mass, or pleural effusion. Degenerative changes are seen in the spine. IMPRESSION: No evidence of acute cardiopulmonary disease
[2020-02-03 18:12] LABS: ALT (SGPT) 20 U/L (8-55); AST (SGOT) 22 U/L (5-34); Albumin 3.5 g/dL (3.4-4.8); Alkaline Phosphatase 106 U/L (40-110); Anion Gap 11 mmol/L (10-20); BUN (Urea Nitrogen) 19 mg/dL (8.4-25.7); Bilirubin, Total 0.6 mg/dL (0.2-1.2); Calc. Creatinine Clearance 0 mL/min (70-130); Calcium 8.9 mg/dL (7.8-10.44); Carbon Dioxide 25 mmol/L (23-31); Chloride 104 mmol/L (98-107); Estimated GFR-MDRD 62; Globulin 4.6 g/dL (2.4-3.5); Glucose 85 mg/dL (83-110); Potassium 3.7 mmol/L (3.5-5.1); Protein, Total 8.1 g/dL (5.8-8.1); Sodium 136 mmol/L (136-145)
[2020-02-03 18:15] LABS: Band 24 % (5-11); Lymphocytes 18 % (21-51); MDiff Complete? YES; Macrocytosis SLIGHT = 6-15 cells (100X) (0-5/hpf); Mean Platelet Volume 9.4 fL (7.4-10.4); Monocytes 15 % (0-10); Neutrophil 37 % (42-75); Platelet Count 113 thou/uL (130-400); Platelet Morphology Comment Appears Decreased; Polychromasia SLIGHT = 2-3 cells (100X) (0-2/hpf); Reactive Lymphocytes 6 % (0-10)
--- NOTE | 2020-02-03 18:28 | RAD ---
EXAM: 2 views of the left tibia/fibula HISTORY: Leg pain after fall COMPARISON: 04/14/2018 FINDINGS: There is no evidence of acute fracture or dislocation. Mild diffuse soft tissue swelling is seen. Moderate degenerative changes are seen in the knee. IMPRESSION: No evidence of acute osseous abnormality.
--- NOTE | 2020-02-03 18:29 | RAD ---
EXAM: 4 views of the left knee HISTORY: Knee pain after fall COMPARISON: 11/10/2016 FINDINGS: No knee effusion is seen. There is no evidence of acute fracture or dislocation. Moderate t o severe tricompartmental joint space narrowing and osteophyte formation is seen consistent with osteoarthritis. Mild diffuse soft tissue swelling is seen. IMPRESSION: Moderate to severe left knee osteoarthritis without evidence of acute osseous abnormality .
--- NOTE | 2020-02-03 18:30 | RAD ---
EXAM: 4 views of the right knee HISTORY: Knee pain after fall COMPARISON: None FINDINGS: No knee effusion is seen. There is no evidence of acute fracture or dislocation. Moderate t o severe tricompartmental joint space narrowing and osteophyte formation is seen. Mild diffuse soft tissue swelling is seen. IMPRESSION: Moderate to severe right knee osteoarthritis without evidence of acute osseous abnormalit y.
[2020-02-03 19:32] LABS: Bacteria/HPF None Seen HPF (None Seen); Bilirubin Negative (Negative); Blood, Urine Negative (Negative); Clarity Clear (Clear); Glucose, Urine (Dipstick) Normal (Negative); Ketone, Urine Negative (Negative); Leukocyte 500 Leu/uL (Negative); Nitrite 1+ (Negative); Protein, Urine (Dipstick) 10 mg/dL (Neg-Trace); RBC/HPF 0-3 HPF (0-3); Specific Gravity, Urine 1.014 (1.002-1.036); Squamous Epithelial 0-3 HPF (0-3); Urobilinogen Normal mg/dL (Less than 2); WBC/HPF Greater than 50 HPF (0-3)
--- NOTE | 2020-02-03 19:42 | CT ---
EXAM: CT brain without contrast HISTORY: Fall with head trauma COMPARISON: 08/02/2019 TECHNIQUE: Multiple contiguous axial images were obtained and a CT of the brain without contrast. FINDINGS: There are scattered hypodensities in the subcortical and periventricular white matter consi stent with small vessel ischemic disease. There is no evidence of hydrocephalus, intracranial hemorrhage, or extra-axial fluid collection. The calvarium and overlying soft tissues are unremarkable. There is partial opacification of the righ t mastoid air cells. A small mucus retention cyst is seen in the right maxillary sinus. IMPRESSION: No evidence of acute intracranial abnormality
--- NOTE | 2020-02-03 19:52 | CT ---
CT Abdomen Pelvis W Con: 02/03/2020 5:48 PM CLINICAL INFORMATION: Abdominal pain after fall COMPARISON: 04/14/2018 TECHNIQUE: Multiple contiguous axial images were obtained and a CT of the abdomen and pelvis with IV contrast. C oronal and sagittal reformats were performed. FINDINGS: Lower Chest: within normal limits. Abdomen: Liver: within normal limits. Bile Ducts: Normal caliber. Gallbladder: Gallstones are seen in the dependent aspect of the gallbladder Pancreas: within normal limits. Spleen: within normal limits. Adrenals: within normal limits. Kidneys: 2.6 cm left renal cyst. Pelvis: Reproductive Organs: No pelvic masses. Ureters: within normal limits. Bladder: within normal limits. Peritoneum: No ascites or free air, no fluid collection. Bowel: Normal caliber. Scattered diverticula in the colon. Mesentery and Retroperitoneum: No enlarged mesenteric or retroperitoneal lymph nodes. Vessels: Normal. Abdominal Wall: within normal limits. Bones: Degenerative changes in the spine. There is fusion of the left sacroiliac joint. IMPRESSION: 1. Cholelithiasis 3. Left renal cyst 3. Diverticulosis
[2020-02-03] MEDS ORDERED: Morphine 4 MG/ML VIAL ONE (21:11)
[2020-02-03] MEDS ORDERED: Piperacillin/Tazobactam 4.5 GM VIAL ONE (21:11)
[2020-02-03] MEDS ORDERED: Acetaminophen 325 MG TAB PO PRN (23:11)
[2020-02-03] MEDS ORDERED: Ondansetron ODT 4 MG TAB PO PRN (23:11)
[2020-02-03] MEDS ORDERED: Calcium Carbonate 500 MG ChewTAB PO PRN (23:11)
[2020-02-03] MEDS ORDERED: Acetaminophen 650 MG Suppository PR PRN (23:11)
[2020-02-03] MEDS ORDERED: Guaifenesin DM 100-10/5 ML UDCUP PO PRN (23:11)
[2020-02-03] MEDS ORDERED: Ondansetron PF 4 MG/2 ML Vial IVP PRN (23:11)
[2020-02-03] MEDS ORDERED: Sodium Chloride 0.9% 1,000 ML IV SCH (23:15)
--- NOTE | 2020-02-03 23:20 | PDOC.HHP ---
Hospitalist HPI - History of Present Illness fall History of Present Illness: Case of an 79y/o male with lives by himself with a pmhx of bph, chf, htn, ao and asbestosis who comes to hospital after a fall. apparently patient was on his usual state of health until today when while trying to get of his bed to his wheel chair he fell down and was unable to get up. patient states he was on the group for 25-30s mins before help arrived. patient reports he fell backwards hitting his head, denies any bleeding or LOC. patient was brought to hospital where he underwent a trauma evaluation which was negative, they did discover an uti for which hospitalist was called for further evaluation and management. on ROS patient reports chronic knee pain secondary to arthritis arthritis, reports a chronic erythema and wound to the left lateral frost. Denies any chest pain or shortness of breath, denies any severe headache, denies any fever. does refers some recent chills and weakness Hospitalist ROS - Review of Systems All other systems reviewed; all pertinent +/- noted in HPI/Subj Hospitalist History - Past Surgical History Other Surgical History: prostatectomy - Family History Family History: reports: no pertinent history - Social History Smoking Status: Never smoker Alcohol: reports: None Drugs: reports: none Living Situation: Alone - Exam General Appearance: NAD, awake alert Eye: PERRL, anicteric sclera ENT: normocephalic atraumatic, no oropharyngeal lesions Neck: supple, symmetric, no JVD Heart: RRR, no murmur, no gallops Respiratory: CTAB, no wheezes, no rales, no ronchi Gastrointestinal: soft, non-tender, non-distended, normal bowel sounds Extremities: no cyanosis, no clubbing, no edema Skin: normal turgor Neurological: cranial nerve grossly intact, normal sensation to touch Musculoskeletal: normal tone Psychiatric: normal affect, normal behavior, A&O x 3 Hospitalist Results - Labs Result Diagrams: 02/03/20 17:34 02/03/20 17:34 Lab results: WBC 4.7 thou/uL (4.8-10.8) L 02/03/20 17:34 Hgb 10.4 g/dL (14.0-18.0) L 02/03/20 17:34 Hct 30.6 % (42.0-52.0) L 02/03/20 17:34 MCV 106.0 fL (78.0-98.0) H 02/03/20 17:34 Plt Count 113 thou/uL (130-400) L 02/03/20 17:34 Band Neuts % (Manual) 24 % (5-11) H 02/03/20 17:34 Sodium 136 mmol/L (136-145) 02/03/20 17:34 Potassium 3.7 mmol/L (3.5-5.1) 02/03/20 17:34 Chloride 104 mmol/L (98-107) 02/03/20 17:34 Carbon Dioxide 25 mmol/L (23-31) 02/03/20 17:34 BUN 19 mg/dL (8.4-25.7) 02/03/20 17:34 Creatinine 1.15 mg/dL (0.7-1.3) 02/03/20 17:34 Glucose 85 mg/dL (83-110) 02/03/20 17:34 Lactic Acid 1.6 mmol/L (0.5-2.2) 02/03/20 17:34 Calcium 8.9 mg/dL (7.8-10.44) 02/03/20 17:34 Total Bilirubin 0.6 mg/dL (0.2-1.2) 02/03/20 17:34 AST 22 U/L (5-34) 02/03/20 17:34 ALT 20 U/L (8-55) 02/03/20 17:34 Alkaline Phosphatase 106 U/L (40-110) 02/03/20 17:34 Troponin I 0.016 ng/mL (< 0.028) 02/03/20 17:34 B-Natriuretic Peptide 36.6 pg/mL (0-100) 02/03/20 17:34 Serum Total Protein 8.1 g/dL (5.8-8.1) 02/03/20 17:34 Albumin 3.5 g/dL (3.4-4.8) 02/03/20 17:34 Urine Ketones Negative mg/dL (Negative) 02/03/20 19:10 Urine Blood Negative (Negative) 02/03/20 19:10 Urine Nitrite 1+ (Negative) A 02/03/20 19:10 Ur Leukocyte Esterase 500 Monica/uL (Negative) A 02/03/20 19:10 Urine RBC 0-3 HPF (0-3) 02/03/20 19:10 Urine WBC Greater than 50 HPF (0-3) A 02/03/20 19:10 Ur Squamous Epith Cells 0-3 HPF (0-3) 02/03/20 19:10 Urine Bacteria None Seen HPF (None Seen) 02/03/20 19:10 Hospitalist H&P A/P - Problem (1) UTI (urinary tract infection) Status: Acute (2) CHF (congestive heart failure) Code(s): I50.9 - HEART FAILURE, UNSPECIFIED Status: Acute (3) HTN (hypertension) Code(s): I10 - ESSENTIAL (PRIMARY) HYPERTENSION Status: Acute (4) Physical deconditioning Code(s): R53.81 - OTHER MALAISE Status: Chronic - Plan Plan: 79y/o male was brought after falling at home, found with uti c. uti - u/a consistent with uti - recent hospitalization with uti which grew MRSA - started on zosyn for c uti, last culture grew mrsa suceptible to zosyn - gentle iv hydration - f/u urine and blood cultures - normal LA chf / hnt / oa - continue home meds
[2020-02-04 02:31] VITALS: BMI 32.8
[2020-02-04] MEDS: Piperacillin/Tazobactam 3.375 GM in Sodium Chloride 0.9% 100 ML IVPB SCH ×3 (03:21→15:25)
[2020-02-04] MEDS: HYDROcodone/Acetaminophen 5/325 mg Tablet PO PRN ×2 (03:21→10:09)
[2020-02-04 04:17] LABS: Hemoglobin 9.6 g/dL (14.0-18.0); Mean Corpuscular HGB CONC 31.5 g/dL (32.0-36.0); Mean Corpuscular Hemoglobin 33.2 pg (27.0-31.0); Mean Platelet Volume 9.5 fL (7.4-10.4); Platelet Count 118 thou/uL (130-400); RBC Distribution Width 14.5 % (11.5-14.5); Red Blood Cell (RBC) Count 2.89 mill/uL (4.70-6.10); White Blood Cell (WBC) Count 5.2 thou/uL (4.8-10.8)
[2020-02-04 04:23] LABS: Band 14 % (5-11); Eosinophils 1 % (0-10); Lymphocytes 17 % (21-51); MDiff Complete? YES; Macrocytosis SLIGHT = 6-15 cells (100X) (0-5/hpf); Monocytes 23 % (0-10); Neutrophil 41 % (42-75); Platelet Morphology Comment Appears Decreased; Polychromasia SLIGHT = 2-3 cells (100X) (0-2/hpf); Reactive Lymphocytes 4 % (0-10)
[2020-02-04 04:24] LABS: ALT (SGPT) 20 U/L (8-55); AST (SGOT) 17 U/L (5-34); Albumin 3.4 g/dL (3.4-4.8); Alkaline Phosphatase 89 U/L (40-110); Anion Gap 10 mmol/L (10-20); BUN (Urea Nitrogen) 15 mg/dL (8.4-25.7); Bilirubin, Total 0.6 mg/dL (0.2-1.2); Calc. Creatinine Clearance 78 mL/min (70-130); Calcium 8.6 mg/dL (7.8-10.44); Carbon Dioxide 24 mmol/L (23-31); Chloride 105 mmol/L (98-107); Estimated GFR-MDRD 66; Globulin 4.2 g/dL (2.4-3.5); Glucose 83 mg/dL (83-110); Potassium 3.5 mmol/L (3.5-5.1); Protein, Total 7.6 g/dL (5.8-8.1); Sodium 135 mmol/L (136-145)
[2020-02-04] MEDS ORDERED: Enoxaparin Sodium 40 MG/0.4 ML SYRINGE SC SCH (09:00)
[2020-02-04 15:04] LABS: SARS-CoV-2 MS2 Positive; SARS-CoV-2 N Gene Negative; SARS-CoV-2 S Gene Negative; SARS-CoV-2 by NAA Not Detected (NotDetected); SARS-CoV-2 orf1ab Negative
[2020-02-04 15:44] VITALS: BP 140/65; TEMP 98.2
--- NOTE | 2020-02-05 16:04 | DIS ---
DATE OF ADMISSION: 02/03/2020 DATE OF DISCHARGE: 02/04/2020 DISCHARGE DIAGNOSES: 1. Urinary tract infection. 2. Fall from wheelchair. 3. Osteoarthritis of the knees. 4. History of congestive heart failure. 5. Hypertension. 6. Physical deconditioning. HISTORY OF PRESENT ILLNESS: The patient is a 79-year-old male. He states that he is in his usual state of health. He simply was trying to transfer from his bed to his wheelchair and the wheelchair essentially slipped away from him and he fell on the floor. The patient is in a wheelchair because he has severe degenerative disease of his knees that cause some pain when he tries to walk. He was unable to get up for close to half an hour, ultimately denied having any significant injury related to that. He was brought to the emergency department to be evaluated. He had a chest x-ray, which was negative. X-rays of the knees and tib-fib were negative. CT of the brain shows nothing acute. CT abdomen and pelvis showed some diverticulosis, left renal cyst, and cholelithiasis, but nothing acute. Labs were notable for chronic anemia and thrombocytopenia. Chemistries were generally unremarkable. Urinalysis showed greater than 50 white cells, positive leukocyte esterase and nitrites, no bacteria seen. HOSPITAL COURSE: The patient was placed in observation status. He continued to feel completely at his baseline. He has a chronic wound on the left leg that was seen by Wound Care and was re-dressed. His previous records were reviewed. The patient had a Staph aureus positive culture from his leg wound on 01/26/2020, at which time, he was treated with p.o. doxycycline. According to the pharmacy records, the MRSA was sensitive to that. On this occasion, the patient denied any urinary tract type symptoms, although, said he had had infections in the past and certainly prior cultures would confirm he has had at least 2 prior urinary tract infections over the last several years. He remained afebrile, had no white count and was comfortable with going home. At the time of discharge, his temperature is 98.2, pulse 82, respirations 18, O2 of 96% on room air, BP 140/65. PHYSICAL EXAMINATION: GENERAL: He was awake and alert. HEART: Regular. LUNGS: Clear. ABDOMEN: Benign. EXTREMITIES: Had no significant edema. Left lower extremity leg wound was appropriately dressed and wrapped. DISPOSITION: The patient's urine culture did appear to show a Staph aureus early, therefore, he will continue with his usual home medications, but will add Bactrim DS one p.o. b.i.d. as the MRSA from his leg wound was sensitive to that and it is reasonable to suspect this may be the same bacteria. Otherwise, he is to continue with his usual diet and activity level and follow up with his PCP. He can return to the hospital at anytime he has a need to do so. Job ID: [id number]
== END 2020-02-04 16:44 | disposition home or self-care (01) ==
LOC: ERS 17:14 → ONC 21:07
PROVIDERS: ADMIT Internal Medicine; ATTEND Internal Medicine
DX: N39.0 Urinary tract infection, site not specified (principal); M17.0 Bilateral primary osteoarthritis of knee; I11.0 Hypertensive heart disease with heart failure; I50.9 Heart failure, unspecified; R53.81 Other malaise; M19.90 Unspecified osteoarthritis, unspecified site; F32.9 Major depressive disorder, single episode, unspecified; K80.20 Calculus of gallbladder without cholecystitis without obstruction; K57.30 Diverticulosis of large intestine without perforation or abscess without bleeding; N28.1 Cyst of kidney, acquired; D64.9 Anemia, unspecified; D69.6 Thrombocytopenia, unspecified; J61 Pneumoconiosis due to asbestos and other mineral fibers; S81.802A Unspecified open wound, left lower leg, initial encounter; Z87.891 Personal history of nicotine dependence; Z79.899 Other long term (current) drug therapy; Z20.828 Contact with and (suspected) exposure to other viral communicable diseases; W05.0XXA Fall from non-moving wheelchair, initial encounter
CPT/HCPCS: 70450; 71045; 73564 ×2; 73590; 74177; 80053 ×2; 83605; 83880; 84484; 85007; 85025; 85027; 87040; 87077; 87086; 87186; 93005; 96365; 96366; 96375; 99285; U0003; 36415; 81003; 81015; 87635; 96361; 96376; G0378; J1650; J2270; J2543; J3490; Q9967

== ENCOUNTER 2020-04-10 18:10 | Emergency (ER) | payer MEDICARE ==
[2020-04-10] MEDS ORDERED: Morphine 4 MG/ML VIAL ONE (18:51)
[2020-04-10] MEDS ORDERED: Ondansetron PF 4 MG/2 ML Vial ONE (18:52)
[2020-04-10] MEDS ORDERED: Acetaminophen 500 MG TAB ONE (18:52)
--- NOTE | 2020-04-10 18:54 | RAD ---
Exam: Chest one view HISTORY:Dyspnea Comparison: 02/03/2020 FINDINGS: Cardiac silhouette: Normal Aorta: Unremarkable Pulmonary vessels: Normal Costophrenic angles: Clear LUNGS: Chronic lung parenchymal changes, without mass or consolidation. Pneumothorax: None Osseous abnormalities: Mild bone demineralization. IMPRESSION: Chronic lung parenchymal changes.
--- NOTE | 2020-04-10 18:55 | RAD ---
Exam:4 views left knee HISTORY: Pain COMPARISON: 02/03/2020 FINDINGS: Stable tricompartmental degenerative change. Stable small suprapatellar effusion. No fractu re or dislocation. IMPRESSION: Stable degenerative change.
[2020-04-10 19:19] LABS: Hemoglobin 10.8 g/dL (14.0-18.0); Mean Corpuscular Hemoglobin 35.5 pg (27.0-31.0); Mean Platelet Volume 9.9 fL (7.4-10.4); Platelet Count 126 thou/uL (130-400); Red Blood Cell (RBC) Count 3.04 mill/uL (4.70-6.10)
[2020-04-10 19:35] LABS: Anisocytosis SLIGHT = 6-15 cells (100X) (0-5/hpf); Band 6 % (5-11); Lymphocytes 30 % (21-51); MDiff Complete? YES; Macrocytosis SLIGHT = 6-15 cells (100X) (0-5/hpf); Monocytes 23 % (0-10); Neutrophil 41 % (42-75); Platelet Morphology Comment Appears Decreased; Polychromasia SLIGHT = 2-3 cells (100X) (0-2/hpf)
--- NOTE | 2020-04-10 19:36 | ULT ---
Exam:Leftlower extremity venous ultrasound with Doppler HISTORY: Left knee pain. COMPARISON: None TECHNIQUE: Grayscale, color flow, Doppler imaging and spectral wave muscle performed LEFT lower extre mity venous system FINDINGS: There is compressibility, presence of flow and augmentation in the common femoral vein, femoral vein and popliteal vein. Posterior tibial veins are difficult to appreciate. There is flow in the greater saphenous vein and profunda femoral vein IMPRESSION: No thrombus in the visualized left lower extremity deep venous system. Posterior tibial v eins are difficult to appreciate.
[2020-04-10 19:37] LABS: ALT (SGPT) 10 U/L (8-55); AST (SGOT) 18 U/L (5-34); Albumin 3.6 g/dL (3.4-4.8); Alkaline Phosphatase 133 U/L (40-110); Anion Gap 14 mmol/L (10-20); BUN (Urea Nitrogen) 19 mg/dL (8.4-25.7); Bilirubin, Total 0.5 mg/dL (0.2-1.2); CK (CPK) 90 U/L (30-200); Calc. Creatinine Clearance 0 mL/min (70-130); Calcium 8.5 mg/dL (7.8-10.44); Carbon Dioxide 21 mmol/L (23-31); Chloride 105 mmol/L (98-107); Estimated GFR-MDRD 64; Globulin 4.1 g/dL (2.4-3.5); Glucose 99 mg/dL (83-110); Potassium 4.4 mmol/L (3.5-5.1); Protein, Total 7.7 g/dL (5.8-8.1); Sodium 136 mmol/L (136-145)
== END 2020-04-10 20:35 | disposition home or self-care (01) ==
LOC: ERS 18:10
DX: M17.12 Unilateral primary osteoarthritis, left knee (principal); I87.8 Other specified disorders of veins; I11.0 Hypertensive heart disease with heart failure; I50.9 Heart failure, unspecified; N40.0 Benign prostatic hyperplasia without lower urinary tract symptoms; F32.9 Major depressive disorder, single episode, unspecified; Z79.899 Other long term (current) drug therapy
CPT/HCPCS: 36415; 71045; 80053; 82550; 83880; 84484; 85025; 93005; 96374; 96375; J2270; J2405

== ENCOUNTER 2020-04-15 12:54 | Emergency (ER) | payer MEDICARE ==
[2020-04-15 13:53] LABS: Hemoglobin 10.6 g/dL (14.0-18.0); Mean Corpuscular HGB CONC 32.9 g/dL (32.0-36.0); Mean Corpuscular Hemoglobin 35.4 pg (27.0-31.0); Mean Platelet Volume 9.3 fL (7.4-10.4); Platelet Count 126 thou/uL (130-400); RBC Distribution Width 14.9 % (11.5-14.5); Red Blood Cell (RBC) Count 2.98 mill/uL (4.70-6.10); White Blood Cell (WBC) Count 3.7 thou/uL (4.8-10.8)
[2020-04-15 14:16] LABS: ALT (SGPT) 9 U/L (8-55); AST (SGOT) 17 U/L (5-34); Albumin 3.5 g/dL (3.4-4.8); Alkaline Phosphatase 89 U/L (40-110); Anion Gap 11 mmol/L (10-20); BUN (Urea Nitrogen) 19 mg/dL (8.4-25.7); Bilirubin, Total 0.7 mg/dL (0.2-1.2); Calc. Creatinine Clearance 0 mL/min (70-130); Calcium 8.7 mg/dL (7.8-10.44); Carbon Dioxide 23 mmol/L (23-31); Chloride 106 mmol/L (98-107); Estimated GFR-MDRD 68; Globulin 4.5 g/dL (2.4-3.5); Glucose 91 mg/dL (83-110); Potassium 4.3 mmol/L (3.5-5.1); Sodium 136 mmol/L (136-145)
[2020-04-15 14:42] LABS: Band 10 % (5-11); Lymphocytes 22 % (21-51); MDiff Complete? YES; Macrocytosis SLIGHT = 6-15 cells (100X) (0-5/hpf); Metamyelocyte 2 % (0-0); Monocytes 36 % (0-10); Myelocyte 2 % (0-0); Neutrophil 22 % (42-75); Platelet Morphology Comment Appears Decreased; Polychromasia SLIGHT = 2-3 cells (100X) (0-2/hpf); Reactive Lymphocytes 6 % (0-10); Tear Drops SLIGHT = 2-5 cells (100X) (0-1/hpf)
--- NOTE | 2020-04-15 15:45 | RAD ---
XR Chest 1 View Portable HISTORY: Chest pain, left leg pain COMPARISON: 04/10/2020 FINDINGS: The heart size is normal. The lungs are well expanded without focal areas of consolidation, pneumothorax or pleural effusions. There are degenerative changes spine.. There is continued mild elevation the right hemidiaphragm. IMPRESSION: No radiographic evidence of acute cardiopulmonary process.
--- NOTE | 2020-04-15 15:46 | RAD ---
XR Pelvis AP STANDARD HISTORY: Left leg pain Comparison 08/02/2019 FINDINGS: No fracture, dislocation or bony destruction is identified. Degenerative changes are again seen in th e hip joints bilaterally.
[2020-04-15] MEDS ORDERED: Morphine 4 MG/ML VIAL ONE (15:59)
[2020-04-15] MEDS ORDERED: Lorazepam 2 MG/ML VIAL ONE (16:00)
--- NOTE | 2020-04-20 13:26 | EKG ---
Test Reason : Blood Pressure : / mmHG Vent. Rate : 083 BPM Atrial Rate : 083 BPM P-R Int : 144 ms QRS Dur : 094 ms QT Int : 374 ms P-R-T Axes : 015 008 037 degrees QTc Int : 439 ms Sinus rhythm with Premature atrial complexes Otherwise normal ECG Confirmed by PA DIETRICH DO ([id number]), publication editor TANNA PARRISH ([id number]) on 04/20/2020 1:26:11 PM Referred By: Confirmed By:PA DIETRICH DO
== END 2020-04-15 17:30 | disposition home or self-care (01) ==
LOC: ERS 12:54
DX: M54.5 Low back pain (principal); M79.605 Pain in left leg; I11.0 Hypertensive heart disease with heart failure; I50.9 Heart failure, unspecified; N40.0 Benign prostatic hyperplasia without lower urinary tract symptoms; M19.90 Unspecified osteoarthritis, unspecified site; F32.9 Major depressive disorder, single episode, unspecified; Z85.118 Personal history of other malignant neoplasm of bronchus and lung; Z79.899 Other long term (current) drug therapy
CPT/HCPCS: 36415; 71045; 72170; 80053; 85025; 93005; 96374; 96375; J2060; J2270

== ENCOUNTER 2020-05-10 12:24 | Observation (INO) | payer MEDICARE ==
--- NOTE | 2020-05-10 13:30 | CT ---
CT BRAIN NONCONTRAST: DATE: 05/10/2020 HISTORY: Altered mental status FINDINGS: There is no evidence of acute intra-axial or extra-axial hemorrhage. There is no midline shift or any other mass effect. There is no extra-axial fluid collection. There is no evidence of obstructive hydrocephalus. Calvarium is intact. There is diffuse brain parenchymal volume loss. There are low att enuation areas in the white matter. These are nonspecific, but in a patient of this age, they are probably chronic ischemic white matter changes due to microvascular atherosclerosis. Tiny old lacunar infarction head of right caudate nucleus. Tiny old right periventricular deep cerebral white matter infarction. No interval change overall since 08/02/2019. IMPRESSION: 1) No acute intracranial findings. 2) involutional changes and chronic ischemic white matter changes. 3) tiny old lacunar infarctions in right caudate and right periventricular white matter.
--- NOTE | 2020-05-10 13:32 | CT ---
CT Cervical Spine WO Con Indication: Pain/Injury COMPARISON: Prior CT of the brain dated February 03, [address] the cervical spine dated August 02, 2019 FINDINGS: Spinal alignment: No acute malalignment. Craniocervical junction: Within normal limits. Fracture: None. Vertebral body heights: Maintained. Prevertebral soft tissues:Normal appearing. Cervical spine degenerative change: There is advanced disc degenerative disease at C5-6 and C6-7. The re is multilevel prominent facet osteoarthritic change. Lung apices: Clear. 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 IMPRESSION: No acute osseous abnormality.
[2020-05-10 14:05] LABS: Hemoglobin 10.2 g/dL (14.0-18.0); Mean Corpuscular HGB CONC 32.3 g/dL (32.0-36.0); Mean Corpuscular Hemoglobin 34.8 pg (27.0-31.0); Mean Platelet Volume 8.9 fL (7.4-10.4); Platelet Count 125 thou/uL (130-400); RBC Distribution Width 14.1 % (11.5-14.5); Red Blood Cell (RBC) Count 2.92 mill/uL (4.70-6.10); White Blood Cell (WBC) Count 4.8 thou/uL (4.8-10.8)
--- NOTE | 2020-05-10 14:12 | RAD ---
EXAM: CHEST ONE VIEW HISTORY: Altered mental status. Fall this morning. COMPARISON: 04/15/2020 FINDINGS: Cardiac silhouette is magnified by projection. Pulmonary vasculature is within normal limits. The giselle gs are clear. Degenerative changes are seen in the spine, but no obvious fracture is appreciated. IMPRESSION: No acute cardiopulmonary process.
--- NOTE | 2020-05-10 14:19 | RAD ---
XR Wrist 3 Rt View STANDARD: 05/10/2020 1:50 PM CLINICAL INDICATION: Fall at home COMPARISON: None. FINDINGS: Bones: There is diffuse osteopenia. There are nonspecific subchondral cystlike abnormalities involvi ng the capitate, hamate, lunate and triquetrum. There is some degenerative subchondral cystlike abnormalities involving the distal radius. No acute fracture or subluxation demonstrated. Joints: There is mild osteoarthrosis of the radiocarpal and ulnocarpal joint.. Soft Tissue: There is soft tissue swelling around the right wrist.. IMPRESSION: No acute osseous abnormality..
[2020-05-10 14:21] LABS: ALT (SGPT) 8 U/L (8-55); AST (SGOT) 14 U/L (5-34); Acetaminophen Less than 6.0 mcg/mL (10.0-30.0); Albumin 3.6 g/dL (3.4-4.8); Alcohol Less than 10 mg/dL (Less than 10); Alkaline Phosphatase 95 U/L (40-110); Anion Gap 13 mmol/L (10-20); BUN (Urea Nitrogen) 21 mg/dL (8.4-25.7); Bilirubin, Total 0.5 mg/dL (0.2-1.2); Calc. Creatinine Clearance 0 mL/min (70-130); Calcium 9.1 mg/dL (7.8-10.44); Carbon Dioxide 22 mmol/L (23-31); Chloride 107 mmol/L (98-107); Estimated GFR-MDRD 65; Globulin 4.9 g/dL (2.4-3.5); Glucose 97 mg/dL (83-110); Lipase 52 U/L (8-78); Protein, Total 8.5 g/dL (5.8-8.1); Salicylate Less than 8.0 mg/dL (15.0-30.0); Sodium 138 mmol/L (136-145)
[2020-05-10 14:23] LABS: Band 22 % (5-11); Lymphocytes 22 % (21-51); MDiff Complete? YES; Macrocytosis SLIGHT = 6-15 cells (100X) (0-5/hpf); Monocytes 29 % (0-10); Neutrophil 16 % (42-75); Platelet Morphology Comment Appears Decreased; Polychromasia SLIGHT = 2-3 cells (100X) (0-2/hpf); Reactive Lymphocytes 11 % (0-10)
[2020-05-10 15:27] LABS: Bacteria/HPF 2+ HPF (None Seen); Bilirubin Negative (Negative); Blood, Urine Negative (Negative); Clarity Clear (Clear); Glucose, Urine (Dipstick) Normal (Negative); Ketone, Urine Negative (Negative); Leukocyte 500 Leu/uL (Negative); Nitrite Negative (Negative); Protein, Urine (Dipstick) 10 mg/dL (Neg-Trace); Specific Gravity, Urine 1.015 (1.002-1.036); Squamous Epithelial 0-3 HPF (0-3); Urobilinogen Normal mg/dL (Less than 2); WBC/HPF Greater than 50 HPF (0-3); pH, Urine 6.5 (5.0-9.0)
[2020-05-10 15:42] LABS: Amphetamine Not Detected (NotDetected); Barbiturates Screen Not Detected (NotDetected); Benzodiazepine Screen Not Detected (NotDetected); Cocaine Metabolite Screen Not Detected (NotDetected); Medtox Reader # READER 1; Methadone Not Detected (NotDetected); Methamphetamine Not Detected (NotDetected); Opiate Screen Not Detected (NotDetected); Oxycodone Screen Not Detected (NotDetected); Phencyclidine (PCP) Not Detected (NotDetected); THC/Cannabinoid Screen Not Detected (NotDetected); Tricyclic Screen Not Detected (NotDetected)
[2020-05-10 15:43] LABS: Medtox Control Line Valid? VALID (VALID)
[2020-05-10] MEDS ORDERED: Vancomycin 1 GM/200 ML BAG ONE (16:08)
[2020-05-10] MEDS ORDERED: cefTRIAXone\\ROCEPHIN 1 GM VIAL ONE (18:15)
--- NOTE | 2020-05-10 18:34 | HP ---
PRIMARY CARE PHYSICIAN: Kassandra Lamar. CHIEF COMPLAINT: Fall. HISTORY OF PRESENT ILLNESS: This is a 79-year-old male, who presented to the emergency room for possible altered mental status after a fall in his bathroom. The patient states that he tipped his wheelchair over and hit the right side of his head against the wall with no loss of consciousness. He did have some chronic knee pain, but no worsening to that, had some right wrist pain that he thinks this is related to an IV he had at previous ER visit or hospitalization that did cause some swelling. No other specific complaints. He was alert and oriented x4 in the emergency room, but appeared slightly confused about what had happened according to the ER physician. A workup was done. X-rays were negative for evidence of fracture or intracranial abnormalities, but the patient's urine was positive for urinary tract infection. The patient was given Rocephin, vancomycin, and a liter of normal saline in the emergency room. He seemed much more with it by the time I saw him for admission. No confusion at that time. REVIEW OF SYSTEMS: CONSTITUTIONAL: No fevers. No chills. EYES: No double vision or blurred vision. ENT: No congestion, drainage, or sore throat. CARDIOVASCULAR: No chest pain. No palpitations or racing heart. PULMONARY: No coughing, wheezing, or shortness of breath. GASTROINTESTINAL: No abdominal pain. No nausea or vomiting. No diarrhea or constipation. GENITOURINARY: No dysuria or hematuria. MUSCULOSKELETAL: He has chronic bilateral knee pain. A little bit of right wrist swelling from a previous IV. Otherwise, no new musculoskeletal complaints. He denies any headache or neck pain. No back pain. SKIN: No rashes or other lesions noted. NEUROLOGIC: The patient denies any numbness, tingling, or focal weakness. PAST MEDICAL HISTORY: 1. 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 2. Hypertension. 3. Benign prostatic hyperplasia. 4. Remote history of mesothelioma from 20 years ago, unknown treatments given for that. 5. Stroke in 2010. PAST SURGICAL HISTORY: Prostatectomy. FAMILY HISTORY: No significant family medical history. SOCIAL HISTORY: No tobacco, alcohol, or illicit drug use. The patient does live alone. He has a daughter who lives in town. The patient gets around in a nonmotorized wheelchair, though he stays active. Yesterday, he was out cutting limbs of a tree and then he would drag the limbs to the street using a rope in his wheelchair. The patient is a full code. Should he be incapacitated, his daughter would be his medical decision maker, her name is Rissa Womack. The patient is a retired gas welder apprentice. ALLERGIES: NO KNOWN DRUG ALLERGIES. CURRENT MEDICATIONS: 1. Ferrous sulfate 325 mg daily. 2. Folic acid 1 mg daily. 3. Furosemide 20 mg daily. 4. Potassium chloride 20 mEq twice a day. 5. Tamsulosin 0.4 mg daily at bedtime. PHYSICAL EXAMINATION: VITAL SIGNS: Blood pressure 138/66, pulse 82, respirations 20, temperature 98.5, O2 saturation 99% on room air. GENERAL: This is a well-developed, overweight male, in no acute distress. HEENT: Pupils are equal, round, and reactive to light. Oropharynx clear without lesions, erythema, or exudate. NECK: Supple. No lymphadenopathy. No thyroid nodules or enlargement. No JVD. HEART: Regular rate and rhythm. No murmurs, rubs, or gallops. LUNGS: Clear to auscultation bilaterally. No wheezes, crackles, or rhonchi. ABDOMEN: Soft, nontender to palpation. Normoactive bowel sounds. No hepatosplenomegaly or other masses. EXTREMITIES: No clubbing, cyanosis, or edema. SKIN: No rashes or other lesions noted. NEUROLOGIC: The patient moves all extremities equally. No numbness or sensation loss. No facial droop. PSYCHIATRIC: Alert and oriented x4. Normal mood and affect. IMAGING STUDIES: CT of the brain without contrast shows no acute intracranial findings. There are some chronic ischemic white matter changes and tiny old lacunar infarcts. CT scan of the cervical spine shows no acute fractures or other osseous abnormalities. X-ray of the right wrist shows no acute osseous abnormalities. EKG done in the emergency room shows normal sinus rhythm at 85 beats per minute. There is a first-degree AV block. No significant ST-segment changes or T-wave inversions. ASSESSMENT: 1. Urinary tract infection. The patient has received Rocephin and vancomycin in the emergency room. I will continue Rocephin while we await urine culture results. 2. Acute metabolic encephalopathy, appears to have resolved in the emergency room. Possibly mild concussion versus due to his urinary tract infection. He does not have any signs of sepsis or other severe infection. At this time, we will observe him in the hospital overnight as his mental status remains normal and he is able to get around with his normal functional status and he can likely be discharged on oral antibiotics tomorrow. 3. Hypertension. Resume the patient's home medications. 4. Congestive heart failure, systolic and diastolic. Does not appear to be in volume overload. Right now, resume his home Lasix and potassium. 5. Benign prostatic hyperplasia. We will resume the patient's tamsulosin. 6. Code status. The patient is a full code. The patient's medical decision maker is his daughter, Rissa Womack. Job ID: [id number]
[2020-05-10] MEDS ORDERED: Senokot S 8.6-50 MG TAB PO PRN (20:04)
[2020-05-10] MEDS ORDERED: Ondansetron PF 4 MG/2 ML Vial IVP PRN (20:04)
[2020-05-10] MEDS ORDERED: Acetaminophen 650 MG Suppository PR PRN (20:04)
[2020-05-10] MEDS ORDERED: Guaifenesin DM 100-10/5 ML UDCUP PO PRN (20:04)
[2020-05-10] MEDS ORDERED: Ondansetron ODT 4 MG TAB PO PRN (20:04)
[2020-05-10 22:18] VITALS: BMI 38.0
[2020-05-10] MEDS: Tamsulosin HCl 0.4 MG CAP PO SCH (22:19)
[2020-05-10] MEDS ORDERED: Famotidine 20 MG TAB PO SCH (22:45)
[2020-05-11] MEDS: Acetaminophen 325 MG TAB PO PRN ×2 (00:30→19:32)
[2020-05-11] MEDS ORDERED: traMADol HCl 50 MG TAB PO PRN (03:59)
[2020-05-11] MEDS ORDERED: Ketorolac Tromethamine 30 MG/ML VIAL IVP SCH (04:15)
[2020-05-11 05:15] LABS: Anion Gap 14 mmol/L (10-20); BUN (Urea Nitrogen) 20 mg/dL (8.4-25.7); Calc. Creatinine Clearance 93 mL/min (70-130); Calcium 8.7 mg/dL (7.8-10.44); Carbon Dioxide 18 mmol/L (23-31); Chloride 108 mmol/L (98-107); Estimated GFR-MDRD 68; Glucose 89 mg/dL (83-110); Potassium 3.9 mmol/L (3.5-5.1); Sodium 136 mmol/L (136-145)
[2020-05-11 05:37] LABS: Band 8 % (5-11); Eosinophils 1 % (0-10); Hemoglobin 9.7 g/dL (14.0-18.0); Lymphocytes 30 % (21-51); MDiff Complete? YES; Mean Corpuscular HGB CONC 32.7 g/dL (32.0-36.0); Mean Corpuscular Hemoglobin 34.9 pg (27.0-31.0); Mean Platelet Volume 9.5 fL (7.4-10.4); Monocytes 18 % (0-10); Neutrophil 43 % (42-75); Nucleated RBC 1 % (0); Platelet Count 113 thou/uL (130-400); Platelet Morphology Comment Appears Decreased; RBC Distribution Width 14.1 % (11.5-14.5); Red Blood Cell (RBC) Count 2.77 mill/uL (4.70-6.10); White Blood Cell (WBC) Count 4.4 thou/uL (4.8-10.8)
--- NOTE | 2020-05-11 07:29 | PDOC.HOSPP ---
- Subjective Encounter Date: 05/11/20 Encounter Time: 09:00 Subjective: Patient without any mental status changes overnight. No complaints. States he feels back to his baseline strength level. PT hasn't evaluated yet today. - Objective Vital Signs & Weight: Vital Signs (12 hours) Temp Pulse Resp BP Pulse Ox 05/11/20 03:35 97.9 F 83 20 110/58 L 99 05/10/20 23:56 98.3 F 85 16 112/55 L 98 Weight Weight 250 lb I&O: 05/10/20 05/11/20 05/12/20 06:59 06:59 06:59 Intake Total 300.5 Output Total 735 Balance -434.5 Result Diagrams: 05/11/20 03:42 05/11/20 03:42 Additional Labs: Accuchecks 05/10/20 13:55 POC Glucose 87 Hospitalist ROS - Review of Systems Constitutional: denies: fever, chills Respiratory: denies: cough, shortness of breath Cardiovascular: denies: chest pain, palpitations Gastrointestinal: denies: nausea, vomiting, abdominal pain Genitourinary: denies: dysuria, hematuria - Medication Medications: Active Medications Generic Name Dose Route Start Last Admin Trade Name Freq PRN Reason Stop Dose Admin Acetaminophen 650 mg 05/10/20 20:04 05/11/20 00:30 Acetaminophen 325 Mg Tab PO 650 mg Q4H PRN Administration Headache/Fever/Mild Pain (1-3) Tamsulosin HCl 0.4 mg 05/10/20 21:00 05/10/20 22:19 Tamsulosin Hcl 0.4 Mg Cap PO 0.4 mg HS IZZY Administration - Exam General Appearance: NAD, awake alert ENT: moist mucosa Heart: RRR, no murmur, no gallops, no rubs Respiratory: CTAB, no wheezes, no rales, no ronchi Gastrointestinal: soft, non-tender, non-distended, normal bowel sounds Psychiatric: normal affect, normal behavior, A&O x 3 Hosp A/P (1) UTI (urinary tract infection) Status: Acute (2) Acute metabolic encephalopathy Code(s): G93.41 - METABOLIC ENCEPHALOPATHY Status: Resolved (3) CHF (congestive heart failure) Code(s): I50.9 - HEART FAILURE, UNSPECIFIED Status: Chronic Qualifiers: Heart failure type: combined systolic and diastolic Heart failure chronicity: chronic Qualified Code(s): I50.42 - Chronic combined systolic (congestive) and diastolic (congestive) heart failure (4) HTN (hypertension) Code(s): I10 - ESSENTIAL (PRIMARY) HYPERTENSION Status: Chronic (5) Benign prostatic hyperplasia Code(s): N40.0 - BENIGN PROSTATIC HYPERPLASIA WITHOUT LOWER URINRY TRACT SYMP Status: Chronic - Plan Patient with stable vitals overnight. No fever. WBC not elevated. Got one dose Vanc, on Rocephin since 05/10/2020. Can discharge home today on oral antibiotics if can do his transfers with PT. Will have case management arrange HH with PT/OT.
[2020-05-11] MEDS: cefTRIAXone\\ROCEPHIN 1 GM in Sodium Chloride 0.9% 100 ML IVPB SCH (09:34)
[2020-05-11] MEDS: Ferrous Sulfate 325 MG TAB PO SCH (09:35)
[2020-05-11] MEDS: Folic Acid 1 MG TAB PO SCH (09:35)
[2020-05-11] MEDS: Enoxaparin Sodium 40 MG/0.4 ML SYRINGE SC SCH (09:35)
[2020-05-11] MEDS: Furosemide 20 MG TAB PO SCH (09:35)
[2020-05-11] MEDS: Potassium Chloride 20 MEQ TAB PO SCH ×2 (09:35→19:45)
[2020-05-11] MEDS: Tamsulosin HCl 0.4 MG CAP PO SCH (19:32)
[2020-05-12 07:52] VITALS: BP 123/58; TEMP 97.7
[2020-05-12] MEDS: Enoxaparin Sodium 40 MG/0.4 ML SYRINGE SC SCH (08:38)
[2020-05-12] MEDS: Furosemide 20 MG TAB PO SCH (08:38)
[2020-05-12] MEDS: Folic Acid 1 MG TAB PO SCH (08:38)
[2020-05-12] MEDS: Ferrous Sulfate 325 MG TAB PO SCH (08:38)
[2020-05-12] MEDS: Potassium Chloride 20 MEQ TAB PO SCH (08:38)
[2020-05-12] MEDS: cefTRIAXone\\ROCEPHIN 1 GM in Sodium Chloride 0.9% 100 ML IVPB SCH (08:38)
--- NOTE | 2020-05-12 10:55 | PDOC.DS.DS ---
Provider - Provider Date of Admission: 05/10/20 16:24 Date of Discharge: 05/12/20 Admitting Provider: Neel Phillips MD Consultations: None Primary Care Physician: KARL HOLLOWAY Course - Hospital Course Hospital Course: Patient is a 79-year-old male with hypertension and benign prostatic hyperplasia presented to the emergency room on 05/10 with generalized weakness with fall. He also had mild alteration of mentation without any syncope. Please refer to the history and physical for further details. The patient was admitted to the hospital with a diagnosis of encephalopathy due to UTI. Urinalysis showed greater than 50 WBCs with 2+ bacteria. Urine culture showed Morganella sensitive to cephalosporins. He was placed on IV ceftriaxone that will be transitioned to Omnicef. He was advised to follow-up with urology as outpatient due to history of benign prostatic hypertrophy. His mentation is back to baseline. Inpatient rehab was recommended however patient refused. I also discussed with patient's family. He needs 24-hour supervision. Patient stated that his son will move with him for now. Home health care will be r esumed. He appears stable for discharge. Fall precaution was emphasized. 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 B12 deficiencyvitamin B12 supplementation will be started Chronic thrombocytopenia Resuscitation Status: 05/10/20 17:32 Resuscitation Status Routine Resuscitation Status: FULL: Full Resuscitation Discussed with: Patient - Labs Lab Results: 05/11/20 03:42 05/11/20 03:42 Abnormal Lab Results - Last 48 hrs 05/10/20 13:53: Carbon Dioxide 22 L, Serum Total Protein 8.5 H, Globulin 4.9 H, Albumin/Globulin Ratio 0.7 L 05/10/20 13:53: RBC 2.92 L, Hgb 10.2 L, Hct 31.5 L, MCV 108.0 H, MCH 34.8 H, Plt Count 125 L, Neutrophils % (Manual) 16 L, Band Neuts % (Manual) 22 H, Reactive Lymphs % 11 H, Monocytes % (Manual) 29 H, Plt Morphology Comment Appears Decreased L 05/10/20 13:53: Salicylates Less than 8.0 L, Acetaminophen Less than 6.0 L 05/10/20 14:51: Ur Leukocyte Esterase 500 A, Urine RBC 4-6 A, Urine WBC Greater than 50 A, Urine Bacteria 2+ A 05/11/20 03:42: Chloride 108 H, Carbon Dioxide 18 L 05/11/20 03:42: WBC 4.4 L, RBC 2.77 L, Hgb 9.7 L, Hct 29.6 L, MCV 107.0 H, MCH 34.9 H, Plt Count 113 L, Monocytes % (Manual) 18 H, Nucleated RBCs # (Man) 1 H, Plt Morphology Comment Appears Decreased L Microbiology - Entire Visit 05/10/20 14:51 Urine voided Urine Culture - Preliminary Morganella morganii ssp cecilia - Diagnostic Interpretation Other Additional comments: Chest x-ray negative for infiltrate CT brain negative for acute CVA Right wrist x-ray was negative for acute fractures or dislocation Cervical spine CT was negative for acute fractures or dislocation - Physical Exam Vitals: Vital Signs (12 hours) Temp Pulse Resp BP BP Pulse Ox 05/12/20 07:51 97.7 F 78 18 123/58 L 95 05/12/20 04:00 97.5 F L 83 16 133/60 99 Weight Admit Weight 250 lb Weight 250 lb Physical Exam: The patient was seen and examined on the day of discharge. Plan - Discharge Medications Prescriptions: Saccharomyces boulardii [Florastor] 250 mg PO DAILY #30 cap Cefdinir [Omnicef] 300 mg PO BID #10 cap Cyanocobalamin (Vitamin B-12) [Vitamin B-12] 1,000 mcg PO DAILY #90 tab Home Medications: Medication Instructions Recorded Confirmed Type Carvedilol [Coreg] 6.25 mg PO BID-WM #0 tab 12/14/14 05/11/20 Rx Ferrous Sulfate 325 mg PO DAILY #0 tablet 02/02/15 05/11/20 Rx Bupropion HCl [buPROPion HCl XL] 300 mg PO DAILY 05/04/16 05/11/20 History Furosemide [Lasix] 40 mg PO BID 05/04/16 05/11/20 History Potassium Chloride 20 meq PO DAILY 05/04/16 05/11/20 History Folic Acid [Folvite] 1 mg PO DAILY 04/14/18 05/11/20 History Gabapentin 300 mg PO TID 04/14/18 05/11/20 History traMADol HCl [Tramadol HCl] 50 mg PO Q6HR PRN 01/29/20 11/07/20 History Cefdinir [Omnicef] 300 mg PO BID #10 cap 05/12/20 Rx Cyanocobalamin (Vitamin B-12) 1,000 mcg PO DAILY #90 tab 05/12/20 Rx [Vitamin B-12] Saccharomyces boulardii [Florastor] 250 mg PO DAILY #30 cap 05/12/20 Rx Allergies: No Known Drug Allergies Allergy (Verified 05/11/20 03:54) PER PT - Discharge Instructions Discharge Instructions:: Urology follow-up as outpatient 24-hour supervision with fall precautions Activity:: Activity as Tolerated Nourishment:: Heart Healthy Diet, Low Sodium Diet Therapies:: Home Health, Occupational Therapy, Physical Therapy Equipment/Supplies:: Not Applicable IV Therapy:: Not Applicable - Follow up Plan Referrals: DRU MENDOZA & [Primary Care Provider] - 3 Days Disposition: HOME HEALTH Quality - Care Measures CORE MEASURES:: N/A
--- NOTE | 2020-05-13 07:52 | DIS ---
DATE OF ADMISSION: 05/10/2020 DATE OF DISCHARGE: 05/12/2020 PRIMARY CARE PHYSICIAN: Kassandra Lamar. REASON FOR ADMISSION: Fall and UTI. DIAGNOSES ON DISCHARGE: 1. Urinary tract infection. 2. Acute metabolic encephalopathy, resolved. 3. Congestive heart failure, systolic and diastolic at baseline. 4. Hypertension. 5. Benign prostatic hyperplasia. 6. Severe osteoarthritis of the knees, wheelchair-bound at home. PROCEDURES: 1. CT of the brain without contrast showing no evidence of acute intracranial process. 2. CT of the cervical spine showing no acute fractures or other osseous abnormalities. 3. X-rays of the wrist, showing no osseous abnormalities. CONSULTATIONS: None. SUMMARY OF HOSPITAL COURSE: This is a 79-year-old male, wheelchair bound, who lives by himself. He states that at home he tipped over his wheelchair and hit the right side of his head against the wall with no loss of consciousness. Did have some chronic knee pain from osteoarthritis, and had some right wrist pain. He came into the emergency room. He was alert and oriented x4 on presentation, but the ER doctors thought that he seemed a little confused. This cleared quickly in the emergency room. Workup showed no evidence of fractures, but he did have evidence of urinary tract infection. He was given dose of vancomycin and Rocephin in the emergency room along with some fluids and then observed in the hospital overnight. The patient remained in his normal mental status overnight. He was being evaluated by Physical Therapy to make sure he can do his transfers and then he is being discharged home. DISCHARGE MANAGEMENT: Discharged home with Home Health. ACTIVITY: As tolerated. DIET: Healthy heart, low-sodium diet. THERAPY: Occupational and physical therapy with Home Health. FOLLOWUP: Follow up with primary care physician in 1 week. DISCHARGE MEDICATIONS: 1. Bactrim Double Strength one tablet twice a day, 20 tablets dispensed. 2. Bupropion XL 300 mg daily. 3. Carvedilol 6.25 mg twice a day. 4. Ferrous sulfate 325 mg daily. 5. Folic acid 1 mg daily. 6. Furosemide 40 mg twice a day. 7. Gabapentin 300 mg three times a day. 8. Potassium chloride 20 mEq daily. Job ID: [id number]
[2020-05-21] MEDS ORDERED: Famotidine 20 MG TAB PO SCH (09:00)
== END 2020-05-12 12:45 | disposition home health service (06) ==
LOC: ERS 12:24 → ONC 16:24
PROVIDERS: ADMIT Emergency Medicine; ATTEND Internal Medicine
DX: G92 Toxic encephalopathy (principal); N39.0 Urinary tract infection, site not specified; B96.89 Other specified bacterial agents as the cause of diseases classified elsewhere; I13.0 Hypertensive heart and chronic kidney disease with heart failure and stage 1 through stage 4 chronic kidney disease, or unspecified chronic kidney disease; N18.2 Chronic kidney disease, stage 2 (mild); I50.42 Chronic combined systolic (congestive) and diastolic (congestive) heart failure; N40.0 Benign prostatic hyperplasia without lower urinary tract symptoms; M17.0 Bilateral primary osteoarthritis of knee; M25.531 Pain in right wrist; D53.9 Nutritional anemia, unspecified; E53.8 Deficiency of other specified B group vitamins; F32.9 Major depressive disorder, single episode, unspecified; Z86.73 Personal history of transient ischemic attack (TIA), and cerebral infarction without residual deficits; Z79.899 Other long term (current) drug therapy; Z99.3 Dependence on wheelchair; W05.0XXA Fall from non-moving wheelchair, initial encounter; Y92.009 Unspecified place in unspecified non-institutional (private) residence as the place of occurrence of the external cause
CPT/HCPCS: 70450; 71045; 72125; 73110; 80048; 80306; 80307; 82962; 83605; 83690; 84484; 85025; 87077; 87086; 87186; 93005; 94760; 96365; 96367; 96372 ×2; 96375; 96376 ×2; 97139 ×4; 97530 ×2; 99285; G0378 ×4; 36415; 36416; 80053; 81003; 81015; 84443; J0696; J1650; J1885; J3370; J3490

== ENCOUNTER 2020-07-31 08:29 | Emergency (ER) | payer MEDICARE ==
[2020-07-31] MEDS ORDERED: Morphine 2 MG/ML VIAL ONE (08:44)
[2020-07-31] MEDS ORDERED: Ondansetron PF 4 MG/2 ML Vial ONE (08:44)
--- NOTE | 2020-07-31 10:27 | RAD ---
EXAM: CHEST ONE VIEW HISTORY: Chest pain COMPARISON: 05/10/2020 FINDINGS: Cardiac silhouette is magnified by projection. Pulmonary vasculature is within normal limits. Calcifi ed granuloma left midlung zone is again seen. Lungs are otherwise clear without consolidation or pleural fluid. Mild vascular calcifications are seen in region of the aortic arch. Degenerative wall es are again seen in the spine. IMPRESSION: Stable chest without evidence of an acute cardiopulmonary process.
--- NOTE | 2020-07-31 10:40 | RAD ---
XR Knee Rt 4 View STANDARD HISTORY: Right knee pain COMPARISON: 02/03/2020 FINDINGS: Severe osteoarthritic changes are again seen manifested by tricompartmental joint space narrowing and osteophyte formation. No fracture or dislocation is identified. No joint effusion is identified.
--- NOTE | 2020-07-31 10:41 | RAD ---
Exam: XR Knee Lt 4 View STANDARD HISTORY: Bilateral knee pain. COMPARISON: 04/10/2020 FINDINGS: Again noted is tricompartment osteophytosis. There is severe joint space narrowing involving the medi al joint compartment which appears slightly progressed from compared to prior study. Subchondral sclerosis and subchondral cystic changes are seen involving the medial joint compartment. No fracture or dislocation is seen. A superior patellar enthesophyte is identified. IMPRESSION: Osteoarthritis greatest involving the medial joint department where there is severe narrowing of the joint space.
[2020-07-31 10:54] LABS: Hemoglobin 9.7 g/dL (14.0-18.0); Mean Corpuscular HGB CONC 33.1 g/dL (32.0-36.0); Mean Corpuscular Hemoglobin 34.4 pg (27.0-31.0); Mean Platelet Volume 8.7 fL (7.4-10.4); Platelet Count 145 thou/uL (130-400); RBC Distribution Width 14.7 % (11.5-14.5); Red Blood Cell (RBC) Count 2.82 mill/uL (4.70-6.10); White Blood Cell (WBC) Count 3.5 thou/uL (4.8-10.8)
[2020-07-31 11:02] LABS: ALT (SGPT) Less than 7 U/L (8-55); AST (SGOT) 14 U/L (5-34); Albumin 3.4 g/dL (3.4-4.8); Alkaline Phosphatase 83 U/L (40-110); Anion Gap 11 mmol/L (10-20); BUN (Urea Nitrogen) 16 mg/dL (8.4-25.7); Bilirubin, Total 0.8 mg/dL (0.2-1.2); Calc. Creatinine Clearance 0 mL/min (70-130); Calcium 8.2 mg/dL (7.8-10.44); Carbon Dioxide 22 mmol/L (23-31); Chloride 106 mmol/L (98-107); Globulin 5.8 g/dL (2.4-3.5); Glucose 88 mg/dL (83-110); Potassium 4.3 mmol/L (3.5-5.1); Protein, Total 9.2 g/dL (5.8-8.1); Sodium 135 mmol/L (136-145)
[2020-07-31 11:08] LABS: Bilirubin Negative (Negative); Blood, Urine Negative (Negative); Clarity Turbid (Clear); Glucose, Urine (Dipstick) Normal (Negative); Ketone, Urine Negative (Negative); Leukocyte 500 Leu/uL (Negative); Nitrite Negative (Negative); Protein, Urine (Dipstick) 100 mg/dL (Neg-Trace); RBC/HPF 0-3 HPF (0-3); Specific Gravity, Urine 1.011 (1.002-1.036); Squamous Epithelial 0-3 HPF (0-3); Urobilinogen Normal mg/dL (Less than 2); WBC/HPF Greater than 50 HPF (0-3); pH, Urine 7.5 (5.0-9.0)
[2020-07-31 11:10] LABS: Bacteria/HPF 1+ HPF (None Seen)
[2020-07-31] MEDS ORDERED: cefTRIAXone\\ROCEPHIN 1 GM VIAL ONE (11:36)
[2020-07-31] MEDS ORDERED: Sodium Chloride 0.9% 100 ML ONE (11:36)
[2020-07-31 11:40] LABS: Band 13 % (5-11); Lymphocytes 34 % (21-51); MDiff Complete? YES; Metamyelocyte 2 % (0-0); Monocytes 20 % (0-10); Myelocyte 2 % (0-0); Neutrophil 18 % (42-75); Platelet Morphology Comment Appears Adequate; Polychromasia SLIGHT = 2-3 cells (100X) (0-2/hpf); Reactive Lymphocytes 11 % (0-10); Reflex for Review?? YES; Rouleaux Formation MODERATE= 6-15 cells (100X) (None Seen)
== END 2020-07-31 15:53 | disposition home or self-care (01) ==
LOC: ERS 08:29
DX: M17.0 Bilateral primary osteoarthritis of knee (principal); B37.49 Other urogenital candidiasis; I11.0 Hypertensive heart disease with heart failure; I50.9 Heart failure, unspecified; N40.0 Benign prostatic hyperplasia without lower urinary tract symptoms; Z85.118 Personal history of other malignant neoplasm of bronchus and lung; Z79.899 Other long term (current) drug therapy; Z86.73 Personal history of transient ischemic attack (TIA), and cerebral infarction without residual deficits
CPT/HCPCS: 71045; 73564 ×2; 80053; 83880; 84484; 85025; 93005; J2270; 36415; 81003; 81015; 85060; 96365; 96375; J0696; J2405; J3490

== ENCOUNTER 2020-10-03 18:54 | Inpatient (IN) | payer MEDICARE ==
[2020-10-03] MEDS ORDERED: Morphine 4 MG/ML VIAL ONE (20:38)
[2020-10-03] MEDS ORDERED: Ondansetron PF 4 MG/2 ML Vial ONE (20:38)
[2020-10-03 20:49] LABS: Hemoglobin 7.7 g/dL (14.0-18.0); Mean Corpuscular HGB CONC 33.2 g/dL (32.0-36.0); Mean Corpuscular Hemoglobin 35.3 pg (27.0-31.0); Platelet Count 181 thou/uL (130-400); RBC Distribution Width 15.1 % (11.5-14.5); Red Blood Cell (RBC) Count 2.19 mill/uL (4.70-6.10); White Blood Cell (WBC) Count 5.5 thou/uL (4.8-10.8)
[2020-10-03 20:53] LABS: INR-International Normal Ratio 1.1
[2020-10-03 21:10] LABS: ALT (SGPT) 7 U/L (8-55); AST (SGOT) 12 U/L (5-34); Albumin 3.4 g/dL (3.4-4.8); Alkaline Phosphatase 106 U/L (40-110); Anion Gap 10 mmol/L (10-20); BUN (Urea Nitrogen) 13 mg/dL (8.4-25.7); Bilirubin, Total 0.5 mg/dL (0.2-1.2); CK (CPK) 95 U/L (30-200); Calc. Creatinine Clearance 0 mL/min (70-130); Calcium 8.5 mg/dL (7.8-10.44); Carbon Dioxide 23 mmol/L (23-31); Chloride 107 mmol/L (98-107); Glucose 93 mg/dL (83-110); Potassium 3.9 mmol/L (3.5-5.1); Protein, Total 8.4 g/dL (5.8-8.1); Sodium 136 mmol/L (136-145)
[2020-10-03 21:22] LABS: Lymphocytes 34 % (21-51); MDiff Complete? YES; Monocytes 18 % (0-10); Neutrophil 46 % (42-75); Platelet Morphology Comment Appears Adequate
[2020-10-03] MEDS ORDERED: Cefepime 2 GM VIAL ONE (22:32)
[2020-10-03] MEDS ORDERED: Aspirin Chewable 81 MG TAB ONE (22:32)
[2020-10-03] MEDS ORDERED: Vancomycin 1 GM/200 ML BAG ONE (23:02)
[2020-10-03] MEDS ORDERED: Acetaminophen 325 MG TAB PO PRN (23:42)
[2020-10-03 23:55] LABS: Troponin I 0.013 ng/mL (< 0.028)
[2020-10-03] MEDS ORDERED: Protamine Sulfate 50 MG/5 ML VIAL SLOW IVP PRN (23:59)
[2020-10-04] MEDS ORDERED: Ondansetron PF 4 MG/2 ML Vial IVP PRN (01:00)
[2020-10-04] MEDS ORDERED: Ondansetron ODT 4 MG TAB SL PRN (01:00)
[2020-10-04] MEDS ORDERED: Enoxaparin Sodium 100 MG/ML SYRINGE SC SCH (02:15)
[2020-10-04] MEDS: traMADol HCl 50 MG TAB PO PRN ×2 (02:43→08:42)
[2020-10-04 05:02] LABS: Anion Gap 11 mmol/L (10-20); BUN (Urea Nitrogen) 12 mg/dL (8.4-25.7); Calc. Creatinine Clearance 92 mL/min (70-130); Carbon Dioxide 20 mmol/L (23-31); Chloride 108 mmol/L (98-107); Potassium 3.4 mmol/L (3.5-5.1); Sodium 136 mmol/L (136-145)
[2020-10-04 05:03] LABS: ALT (SGPT) Less than 7 U/L (8-55); AST (SGOT) 13 U/L (5-34); Alkaline Phosphatase 83 U/L (40-110); Bilirubin, Total 0.5 mg/dL (0.2-1.2); Calcium 8.2 mg/dL (7.8-10.44); Globulin 4.5 g/dL (2.4-3.5); Glucose 84 mg/dL (83-110); Protein, Total 7.5 g/dL (5.8-8.1)
[2020-10-04 05:04] LABS: Iron 40 ug/dL (65-175); Iron Binding Capacity, Total 193 mcg/dL (261-462)
[2020-10-04 05:06] LABS: Troponin I 0.011 ng/mL (< 0.028)
[2020-10-04 05:09] LABS: INR-International Normal Ratio 1.2; PTT 57.2 sec (22.9-36.1); Prothrombin Time 15.4 sec (12.0-14.7)
[2020-10-04 05:24] LABS: SARS-CoV-2 PCR by NAA Not Detected (NotDetected)
[2020-10-04 05:27] LABS: Ferritin 319.78 ng/mL (22-322)
[2020-10-04] MEDS: Saccharomyces boulardii 250 MG CAP PO SCH ×4 (06:12→20:16)
[2020-10-04 08:14] LABS: Hemoglobin 9.1 g/dL (14.0-18.0); Mean Corpuscular HGB CONC 33.7 g/dL (32.0-36.0); Mean Corpuscular Hemoglobin 35.8 pg (27.0-31.0); Platelet Count 144 thou/uL (130-400); RBC Distribution Width 15.2 % (11.5-14.5); Red Blood Cell (RBC) Count 2.55 mill/uL (4.70-6.10); White Blood Cell (WBC) Count 3.7 thou/uL (4.8-10.8)
[2020-10-04] MEDS: Folic Acid 1 MG TAB PO SCH (09:08)
[2020-10-04] MEDS: Ascorbic Acid 500 mg Chewable Tablet PO SCH (09:08)
[2020-10-04] MEDS: Cyanocobalamin (Vitamin B-12) 1,000 MCG TAB PO SCH (09:09)
[2020-10-04] MEDS: Furosemide 40 MG TAB PO SCH ×2 (09:09→14:04)
[2020-10-04] MEDS: Carvedilol 6.25 MG TAB PO SCH ×2 (09:09→17:54)
[2020-10-04] MEDS: Gabapentin 300 MG CAP PO SCH ×3 (09:10→20:16)
[2020-10-04] MEDS: Bupropion 150 MG XL TAB PO SCH (09:10)
[2020-10-04] MEDS: Potassium Chloride 20 MEQ TAB PO SCH (09:11)
[2020-10-04] MEDS: Ferrous Sulfate 325 MG TAB PO SCH (09:13)
[2020-10-04] MEDS ORDERED: Cefepime 2 GM in Sodium Chloride 0.9% 100 ML IVPB SCH (10:00)
[2020-10-04 10:23] LABS: Band 3 % (5-11); Eosinophils 2 % (0-10); Lymphocytes 30 % (21-51); MDiff Complete? YES; Macrocytosis SLIGHT = 6-15 cells (100X) (0-5/hpf); Monocytes 27 % (0-10); Neutrophil 37 % (42-75); Platelet Morphology Comment Appears Adequate; Polychromasia SLIGHT = 2-3 cells (100X) (0-2/hpf); Reactive Lymphocytes 1 % (0-10)
[2020-10-04] MEDS ORDERED: Sulfameth/Trimethoprim DS 800-160mg TAB PO SCH ×2 (10:25→10:45)
[2020-10-04] MEDS ORDERED: Vancomycin 1 GM in Premix Bag 1 BAG IVPB SCH (11:00)
[2020-10-04] MEDS: Apixaban 5 MG TAB PO SCH (20:16)
[2020-10-04] MEDS: Sulfameth/Trimethoprim DS 800-160mg TAB PO SCH (20:17)
[2020-10-05 05:25] LABS: Anion Gap 14 mmol/L (10-20); BUN (Urea Nitrogen) 13 mg/dL (8.4-25.7); Calc. Creatinine Clearance 75 mL/min (70-130); Calcium 8.6 mg/dL (7.8-10.44); Carbon Dioxide 22 mmol/L (23-31); Chloride 104 mmol/L (98-107); Glucose 74 mg/dL (83-110); Potassium 3.9 mmol/L (3.5-5.1); Sodium 136 mmol/L (136-145)
[2020-10-05 05:30] LABS: Band 1 % (5-11); Eosinophils 1 % (0-10); Hemoglobin 9.4 g/dL (14.0-18.0); Lymphocytes 33 % (21-51); MDiff Complete? YES; Mean Corpuscular HGB CONC 32.4 g/dL (32.0-36.0); Mean Corpuscular Hemoglobin 34.6 pg (27.0-31.0); Mean Platelet Volume 8.9 fL (7.4-10.4); Monocytes 39 % (0-10); Myelocyte 1 % (0-0); Neutrophil 25 % (42-75); Platelet Count 136 thou/uL (130-400); Platelet Morphology Comment Appears Adequate; Red Blood Cell (RBC) Count 2.72 mill/uL (4.70-6.10); White Blood Cell (WBC) Count 3.7 thou/uL (4.8-10.8)
[2020-10-05] MEDS: Ascorbic Acid 500 mg Chewable Tablet PO SCH (08:38)
[2020-10-05] MEDS: Saccharomyces boulardii 250 MG CAP PO SCH ×4 (08:38→20:21)
[2020-10-05] MEDS: Bupropion 150 MG XL TAB PO SCH (08:38)
[2020-10-05] MEDS: Furosemide 40 MG TAB PO SCH ×2 (08:38→14:35)
[2020-10-05] MEDS: Ferrous Sulfate 325 MG TAB PO SCH (08:38)
[2020-10-05] MEDS: Cyanocobalamin (Vitamin B-12) 1,000 MCG TAB PO SCH (08:39)
[2020-10-05] MEDS: Sulfameth/Trimethoprim DS 800-160mg TAB PO SCH ×2 (08:39→20:22)
[2020-10-05] MEDS: Folic Acid 1 MG TAB PO SCH (08:39)
[2020-10-05] MEDS: Apixaban 5 MG TAB PO SCH ×2 (08:39→20:22)
[2020-10-05] MEDS: Potassium Chloride 20 MEQ TAB PO SCH (08:39)
[2020-10-05] MEDS: Gabapentin 300 MG CAP PO SCH ×3 (08:40→20:22)
[2020-10-05] MEDS: Carvedilol 6.25 MG TAB PO SCH ×2 (10:06→16:52)
[2020-10-05] MEDS: traMADol HCl 50 MG TAB PO PRN (15:02)
[2020-10-06 05:07] LABS: Hemoglobin 9.6 g/dL (14.0-18.0); Mean Corpuscular HGB CONC 32.1 g/dL (32.0-36.0); Mean Corpuscular Hemoglobin 33.9 pg (27.0-31.0); Platelet Count 154 thou/uL (130-400); Red Blood Cell (RBC) Count 2.82 mill/uL (4.70-6.10); White Blood Cell (WBC) Count 3.3 thou/uL (4.8-10.8)
[2020-10-06 05:23] LABS: Band 6 % (5-11); Eosinophils 1 % (0-10); Lymphocytes 39 % (21-51); MDiff Complete? YES; Monocytes 33 % (0-10); Myelocyte 1 % (0-0); Neutrophil 20 % (42-75); Platelet Morphology Comment Appears Adequate
[2020-10-06 05:24] LABS: Anion Gap 14 mmol/L (10-20); BUN (Urea Nitrogen) 19 mg/dL (8.4-25.7); Calc. Creatinine Clearance 53 mL/min (70-130); Calcium 8.8 mg/dL (7.8-10.44); Carbon Dioxide 23 mmol/L (23-31); Chloride 102 mmol/L (98-107); Glucose 74 mg/dL (83-110); Potassium 4.1 mmol/L (3.5-5.1); Sodium 135 mmol/L (136-145)
[2020-10-06] MEDS: Bupropion 150 MG XL TAB PO SCH (08:38)
[2020-10-06] MEDS: Saccharomyces boulardii 250 MG CAP PO SCH ×4 (08:39→20:15)
[2020-10-06] MEDS: Ferrous Sulfate 325 MG TAB PO SCH (08:39)
[2020-10-06] MEDS: Folic Acid 1 MG TAB PO SCH (08:39)
[2020-10-06] MEDS: Sulfameth/Trimethoprim DS 800-160mg TAB PO SCH ×2 (08:39→20:15)
[2020-10-06] MEDS: Potassium Chloride 20 MEQ TAB PO SCH (08:39)
[2020-10-06] MEDS: Gabapentin 300 MG CAP PO SCH ×3 (08:39→20:16)
[2020-10-06] MEDS: Furosemide 20 MG TAB PO SCH (08:39)
[2020-10-06] MEDS: Ascorbic Acid 500 mg Chewable Tablet PO SCH (08:39)
[2020-10-06] MEDS: Cyanocobalamin (Vitamin B-12) 1,000 MCG TAB PO SCH (08:39)
[2020-10-06] MEDS: Carvedilol 6.25 MG TAB PO SCH ×2 (08:40→16:23)
[2020-10-06] MEDS: Apixaban 5 MG TAB PO SCH ×2 (08:40→20:15)
[2020-10-06] MEDS ORDERED: Diclofenac 1% 100 GM GEL TP SCH (09:00)
[2020-10-06] MEDS: traMADol HCl 50 MG TAB PO PRN ×3 (11:51→22:20)
[2020-10-06] MEDS: Acetaminophen 500 MG TAB PO PRN (22:17)
[2020-10-07 05:23] LABS: Anion Gap 11 mmol/L (10-20); BUN (Urea Nitrogen) 20 mg/dL (8.4-25.7); Band 8 % (5-11); Calc. Creatinine Clearance 49 mL/min (70-130); Calcium 8.7 mg/dL (7.8-10.44); Carbon Dioxide 24 mmol/L (23-31); Chloride 103 mmol/L (98-107); Eosinophils 2 % (0-10); Glucose 70 mg/dL (83-110); Hemoglobin 9.4 g/dL (14.0-18.0); Hypochromia SLIGHT = 6-15 cells (100X) (0-5/hpf); Lymphocytes 62 % (21-51); MDiff Complete? YES; Macrocytosis SLIGHT = 6-15 cells (100X) (0-5/hpf); Mean Corpuscular Hemoglobin 34.8 pg (27.0-31.0); Mean Platelet Volume 9.3 fL (7.4-10.4); Monocytes 8 % (0-10); Neutrophil 12 % (42-75); Platelet Count 153 thou/uL (130-400); Platelet Morphology Comment Appears Adequate; Potassium 4.3 mmol/L (3.5-5.1); RBC Distribution Width 14.7 % (11.5-14.5); Reactive Lymphocytes 8 % (0-10); Red Blood Cell (RBC) Count 2.69 mill/uL (4.70-6.10); Sodium 134 mmol/L (136-145); White Blood Cell (WBC) Count 3.6 thou/uL (4.8-10.8)
[2020-10-07] MEDS: Saccharomyces boulardii 250 MG CAP PO SCH ×4 (06:43→20:05)
[2020-10-07] MEDS: Apixaban 5 MG TAB PO SCH ×2 (08:46→20:05)
[2020-10-07] MEDS: Potassium Chloride 20 MEQ TAB PO SCH (08:46)
[2020-10-07] MEDS: Ascorbic Acid 500 mg Chewable Tablet PO SCH (08:46)
[2020-10-07] MEDS: Folic Acid 1 MG TAB PO SCH (08:47)
[2020-10-07] MEDS: Gabapentin 300 MG CAP PO SCH ×3 (08:47→20:05)
[2020-10-07] MEDS: Ferrous Sulfate 325 MG TAB PO SCH (08:47)
[2020-10-07] MEDS: Sulfameth/Trimethoprim DS 800-160mg TAB PO SCH ×2 (08:47→20:06)
[2020-10-07] MEDS: Bupropion 150 MG XL TAB PO SCH (08:47)
[2020-10-07] MEDS: Cyanocobalamin (Vitamin B-12) 1,000 MCG TAB PO SCH (08:48)
[2020-10-07] MEDS: Carvedilol 6.25 MG TAB PO SCH ×2 (08:49→16:50)
[2020-10-08] MEDS: Saccharomyces boulardii 250 MG CAP PO SCH ×4 (06:29→20:12)
[2020-10-08 06:30] LABS: Anion Gap 15 mmol/L (10-20); BUN (Urea Nitrogen) 21 mg/dL (8.4-25.7); Calc. Creatinine Clearance 50 mL/min (70-130); Calcium 8.8 mg/dL (7.8-10.44); Carbon Dioxide 20 mmol/L (23-31); Chloride 101 mmol/L (98-107); Glucose 66 mg/dL (83-110); Potassium 4.5 mmol/L (3.5-5.1); Sodium 131 mmol/L (136-145)
[2020-10-08 06:33] LABS: Band 3 % (5-11); Eosinophils 1 % (0-10); Hemoglobin 10.3 g/dL (14.0-18.0); Lymphocytes 47 % (21-51); MDiff Complete? YES; Mean Corpuscular HGB CONC 32.6 g/dL (32.0-36.0); Mean Corpuscular Hemoglobin 34.3 pg (27.0-31.0); Mean Platelet Volume 9.6 fL (7.4-10.4); Metamyelocyte 1 % (0-0); Monocytes 28 % (0-10); Neutrophil 20 % (42-75); Platelet Count 165 thou/uL (130-400); Platelet Morphology Comment Appears Adequate; RBC Distribution Width 14.7 % (11.5-14.5); Red Blood Cell (RBC) Count 2.99 mill/uL (4.70-6.10); White Blood Cell (WBC) Count 3.1 thou/uL (4.8-10.8)
[2020-10-08] MEDS: Acetaminophen 500 MG TAB PO PRN (08:08)
[2020-10-08] MEDS: traMADol HCl 50 MG TAB PO PRN ×2 (08:09→16:03)
[2020-10-08] MEDS: Ferrous Sulfate 325 MG TAB PO SCH (08:11)
[2020-10-08] MEDS: Bupropion 150 MG XL TAB PO SCH (08:11)
[2020-10-08] MEDS: Folic Acid 1 MG TAB PO SCH (08:12)
[2020-10-08] MEDS: Carvedilol 6.25 MG TAB PO SCH ×2 (08:12→16:02)
[2020-10-08] MEDS: Apixaban 5 MG TAB PO SCH ×2 (08:12→20:12)
[2020-10-08] MEDS: Cyanocobalamin (Vitamin B-12) 1,000 MCG TAB PO SCH (08:13)
[2020-10-08] MEDS: Ascorbic Acid 500 mg Chewable Tablet PO SCH (08:13)
[2020-10-08] MEDS: Potassium Chloride 20 MEQ TAB PO SCH (08:13)
[2020-10-08] MEDS: Gabapentin 300 MG CAP PO SCH ×3 (08:14→20:12)
[2020-10-08] MEDS: Sulfameth/Trimethoprim DS 800-160mg TAB PO SCH ×2 (08:14→20:12)
[2020-10-08] MEDS: Furosemide 20 MG TAB PO SCH (08:17)
[2020-10-09] MEDS ORDERED: Senokot 8.6 MG TAB PO PRN (06:07)
[2020-10-09 06:10] LABS: Anion Gap 14 mmol/L (10-20); BUN (Urea Nitrogen) 21 mg/dL (8.4-25.7); Calc. Creatinine Clearance 43 mL/min (70-130); Calcium 9.1 mg/dL (7.8-10.44); Carbon Dioxide 21 mmol/L (23-31); Chloride 103 mmol/L (98-107); Glucose 66 mg/dL (83-110); Potassium 5.2 mmol/L (3.5-5.1); Sodium 133 mmol/L (136-145)
[2020-10-09] MEDS ORDERED: Senokot 8.6 MG TAB PO SCH (06:15)
[2020-10-09] MEDS: Saccharomyces boulardii 250 MG CAP PO SCH ×4 (06:16→22:35)
[2020-10-09] MEDS ORDERED: Furosemide 20 MG TAB PO SCH (09:00)
[2020-10-09] MEDS: Polyethylene Glycol 3350 17 GM Packet PO SCH (09:21)
[2020-10-09] MEDS: Gabapentin 300 MG CAP PO SCH ×3 (09:21→22:35)
[2020-10-09] MEDS: Bupropion 150 MG XL TAB PO SCH (09:21)
[2020-10-09] MEDS: Cyanocobalamin (Vitamin B-12) 1,000 MCG TAB PO SCH (09:21)
[2020-10-09] MEDS: Sulfameth/Trimethoprim DS 800-160mg TAB PO SCH (09:21)
[2020-10-09] MEDS: Carvedilol 6.25 MG TAB PO SCH ×2 (09:22→18:07)
[2020-10-09] MEDS: Ascorbic Acid 500 mg Chewable Tablet PO SCH (09:22)
[2020-10-09] MEDS: Ferrous Sulfate 325 MG TAB PO SCH (09:22)
[2020-10-09] MEDS: Folic Acid 1 MG TAB PO SCH (09:23)
[2020-10-09] MEDS: Apixaban 5 MG TAB PO SCH ×2 (09:23→22:35)
[2020-10-09] MEDS: traMADol HCl 50 MG TAB PO PRN (13:08)
[2020-10-09 15:11] LABS: Anion Gap 13 mmol/L (10-20); BUN (Urea Nitrogen) 25 mg/dL (8.4-25.7); Calc. Creatinine Clearance 39 mL/min (70-130); Calcium 9.2 mg/dL (7.8-10.44); Carbon Dioxide 24 mmol/L (23-31); Chloride 103 mmol/L (98-107); Glucose 65 mg/dL (83-110); Potassium 5.1 mmol/L (3.5-5.1); Sodium 135 mmol/L (136-145)
[2020-10-09] MEDS ORDERED: Lactated Ringer's 500 ML IV SCH (17:00)
[2020-10-09] MEDS: Doxycycline 100 MG CAP PO SCH (22:35)
[2020-10-10 06:20] LABS: Anion Gap 14 mmol/L (10-20); BUN (Urea Nitrogen) 28 mg/dL (8.4-25.7); Calc. Creatinine Clearance 41 mL/min (70-130); Calcium 9.1 mg/dL (7.8-10.44); Carbon Dioxide 21 mmol/L (23-31); Chloride 102 mmol/L (98-107); Potassium 4.7 mmol/L (3.5-5.1); Sodium 132 mmol/L (136-145)
[2020-10-10 06:24] LABS: Glucose 52 mg/dL (83-110)
[2020-10-10] MEDS: Cyanocobalamin (Vitamin B-12) 1,000 MCG TAB PO SCH (08:41)
[2020-10-10] MEDS: Folic Acid 1 MG TAB PO SCH (08:42)
[2020-10-10] MEDS: Ferrous Sulfate 325 MG TAB PO SCH (08:42)
[2020-10-10] MEDS: Apixaban 5 MG TAB PO SCH ×2 (08:42→20:52)
[2020-10-10] MEDS: Saccharomyces boulardii 250 MG CAP PO SCH ×4 (08:42→20:53)
[2020-10-10] MEDS: Bupropion 150 MG XL TAB PO SCH (08:42)
[2020-10-10] MEDS: Doxycycline 100 MG CAP PO SCH ×2 (08:43→20:53)
[2020-10-10] MEDS: Gabapentin 300 MG CAP PO SCH ×3 (08:43→20:53)
[2020-10-10] MEDS: Carvedilol 6.25 MG TAB PO SCH ×2 (08:43→16:12)
[2020-10-10] MEDS: Polyethylene Glycol 3350 17 GM Packet PO SCH (08:44)
[2020-10-10] MEDS: Potassium Chloride 20 MEQ TAB PO SCH (12:04)
[2020-10-10 13:57] VITALS: BMI 31.4
[2020-10-11] MEDS: traMADol HCl 50 MG TAB PO PRN ×2 (04:12→21:30)
[2020-10-11 06:01] LABS: Anion Gap 16 mmol/L (10-20); BUN (Urea Nitrogen) 31 mg/dL (8.4-25.7); Calc. Creatinine Clearance 37 mL/min (70-130); Calcium 9.7 mg/dL (7.8-10.44); Carbon Dioxide 20 mmol/L (23-31); Chloride 102 mmol/L (98-107); Glucose 77 mg/dL (83-110); Potassium 4.8 mmol/L (3.5-5.1); Sodium 133 mmol/L (136-145)
[2020-10-11] MEDS ORDERED: Lactated Ringer's 500 ML IV SCH (08:45)
[2020-10-11] MEDS: Polyethylene Glycol 3350 17 GM Packet PO SCH (09:43)
[2020-10-11] MEDS: Saccharomyces boulardii 250 MG CAP PO SCH ×4 (09:43→20:38)
[2020-10-11] MEDS: Apixaban 5 MG TAB PO SCH ×2 (09:43→20:38)
[2020-10-11] MEDS: Gabapentin 300 MG CAP PO SCH (09:43)
[2020-10-11] MEDS: Ferrous Sulfate 325 MG TAB PO SCH (09:44)
[2020-10-11] MEDS: Folic Acid 1 MG TAB PO SCH (09:44)
[2020-10-11] MEDS: Carvedilol 6.25 MG TAB PO SCH ×2 (09:44→16:47)
[2020-10-11] MEDS: Cyanocobalamin (Vitamin B-12) 1,000 MCG TAB PO SCH (09:45)
[2020-10-11] MEDS: Doxycycline 100 MG CAP PO SCH ×2 (09:45→20:38)
[2020-10-11] MEDS: Bupropion 150 MG XL TAB PO SCH (09:45)
[2020-10-11 14:26] LABS: Anion Gap 15 mmol/L (10-20); BUN (Urea Nitrogen) 30 mg/dL (8.4-25.7); Calc. Creatinine Clearance 37 mL/min (70-130); Calcium 9.6 mg/dL (7.8-10.44); Carbon Dioxide 21 mmol/L (23-31); Chloride 102 mmol/L (98-107); Glucose 87 mg/dL (83-110); Potassium 4.9 mmol/L (3.5-5.1); Sodium 133 mmol/L (136-145)
[2020-10-11] MEDS ORDERED: Sodium Chloride 0.9% 1,000 ML IV SCH (14:45)
[2020-10-11] MEDS: Sodium Bicarbonate 150 MEQ in Dextrose 5% in Water 1,000 ML IV SCH (17:41)
[2020-10-11] MEDS: Melatonin 3 MG TAB PO PRN (20:38)
[2020-10-12 01:40] LABS: Bilirubin Negative (Negative); Blood, Urine Trace (Negative); Clarity Turbid (Clear); Glucose, Urine (Dipstick) Normal (Negative); Ketone, Urine Negative (Negative); Leukocyte 500 Leu/uL (Negative); Nitrite Negative (Negative); Protein, Urine (Dipstick) 20 mg/dL (Neg-Trace); Specific Gravity, Urine 1.015 (1.002-1.036); Squamous Epithelial 0-3 HPF (0-3); Urobilinogen Normal mg/dL (Less than 2); WBC/HPF Greater than 50 HPF (0-3); pH, Urine 6.5 (5.0-9.0)
[2020-10-12 01:41] LABS: Bacteria/HPF 1+ HPF (None Seen); Urine Culture Reflex Yes Yes
[2020-10-12 01:51] LABS: Creatinine, Urine 84.19 mg/dL (63-166)
[2020-10-12 05:31] LABS: Anion Gap 11 mmol/L (10-20); BUN (Urea Nitrogen) 24 mg/dL (8.4-25.7); Calc. Creatinine Clearance 52 mL/min (70-130); Carbon Dioxide 26 mmol/L (23-31); Chloride 102 mmol/L (98-107); Glucose 91 mg/dL (83-110); Potassium 4.3 mmol/L (3.5-5.1); Sodium 135 mmol/L (136-145)
[2020-10-12] MEDS: Sodium Bicarbonate 150 MEQ in Dextrose 5% in Water 1,000 ML IV SCH (06:01)
[2020-10-12 06:12] LABS: Hemoglobin 9.7 g/dL (14.0-18.0); Mean Corpuscular HGB CONC 32.4 g/dL (32.0-36.0); Mean Corpuscular Hemoglobin 34.3 pg (27.0-31.0); Mean Platelet Volume 9.8 fL (7.4-10.4); Platelet Count 145 thou/uL (130-400); RBC Distribution Width 14.5 % (11.5-14.5); Red Blood Cell (RBC) Count 2.83 mill/uL (4.70-6.10); White Blood Cell (WBC) Count 3.8 thou/uL (4.8-10.8)
[2020-10-12 06:16] LABS: Band 1 % (5-11); Lymphocytes 33 % (21-51); MDiff Complete? YES; Macrocytosis SLIGHT = 6-15 cells (100X) (0-5/hpf); Monocytes 35 % (0-10); Neutrophil 31 % (42-75)
[2020-10-12] MEDS: Saccharomyces boulardii 250 MG CAP PO SCH ×4 (06:35→20:47)
[2020-10-12] MEDS: Doxycycline 100 MG CAP PO SCH ×2 (08:11→20:47)
[2020-10-12] MEDS: Bupropion 150 MG XL TAB PO SCH (08:12)
[2020-10-12] MEDS: Folic Acid 1 MG TAB PO SCH (08:12)
[2020-10-12] MEDS: Cyanocobalamin (Vitamin B-12) 1,000 MCG TAB PO SCH (08:12)
[2020-10-12] MEDS: Carvedilol 6.25 MG TAB PO SCH ×2 (08:12→18:01)
[2020-10-12] MEDS: Acetaminophen 500 MG TAB PO PRN (08:12)
[2020-10-12] MEDS: Apixaban 5 MG TAB PO SCH ×2 (08:13→20:47)
[2020-10-12] MEDS: traMADol HCl 50 MG TAB PO PRN (08:13)
[2020-10-12] MEDS: Ferrous Sulfate 325 MG TAB PO SCH (08:14)
[2020-10-12] MEDS: Polyethylene Glycol 3350 17 GM Packet PO SCH (08:36)
[2020-10-12] MEDS ORDERED: Senokot 8.6 MG TAB PO SCH (10:25)
[2020-10-12] MEDS: Diclofenac 1% 100 GM GEL TP SCH ×3 (12:11→20:46)
[2020-10-12] MEDS: Gabapentin 300 MG CAP PO SCH ×2 (15:02→20:47)
[2020-10-12] MEDS: Melatonin 3 MG TAB PO PRN (20:47)
[2020-10-12] MEDS: Bisacodyl 5 MG TAB PO SCH (20:48)
[2020-10-12] MEDS: Ondansetron ODT 4 MG TAB PO PRN (22:44)
[2020-10-13 05:49] LABS: Anion Gap 12 mmol/L (10-20); BUN (Urea Nitrogen) 16 mg/dL (8.4-25.7); Calc. Creatinine Clearance 58 mL/min (70-130); Calcium 9.1 mg/dL (7.8-10.44); Carbon Dioxide 26 mmol/L (23-31); Chloride 100 mmol/L (98-107); Glucose 82 mg/dL (83-110); Potassium 4.5 mmol/L (3.5-5.1); Sodium 133 mmol/L (136-145)
[2020-10-13] MEDS: Saccharomyces boulardii 250 MG CAP PO SCH ×4 (06:45→20:54)
[2020-10-13] MEDS: Apixaban 5 MG TAB PO SCH ×2 (07:59→20:54)
[2020-10-13] MEDS: Bisacodyl 5 MG TAB PO SCH ×2 (07:59→20:54)
[2020-10-13] MEDS: Folic Acid 1 MG TAB PO SCH (07:59)
[2020-10-13] MEDS: Carvedilol 6.25 MG TAB PO SCH ×2 (07:59→18:28)
[2020-10-13] MEDS: Bupropion 150 MG XL TAB PO SCH (08:00)
[2020-10-13] MEDS: Senokot 8.6 MG TAB PO SCH (08:00)
[2020-10-13] MEDS: Doxycycline 100 MG CAP PO SCH ×2 (08:00→20:54)
[2020-10-13] MEDS: Cyanocobalamin (Vitamin B-12) 1,000 MCG TAB PO SCH (08:00)
[2020-10-13] MEDS: Gabapentin 300 MG CAP PO SCH ×3 (08:00→20:54)
[2020-10-13] MEDS: Diclofenac 1% 100 GM GEL TP SCH ×5 (08:01→20:55)
[2020-10-13] MEDS: Ferrous Sulfate 325 MG TAB PO SCH (08:01)
[2020-10-13] MEDS: Polyethylene Glycol 3350 17 GM Packet PO SCH (08:14)
[2020-10-13] MEDS: Ondansetron ODT 4 MG TAB PO PRN (12:20)
[2020-10-13] MEDS: Lactated Ringer's 1,000 ML IV SCH (15:49)
[2020-10-13] MEDS: traMADol HCl 50 MG TAB PO PRN (20:55)
[2020-10-13] MEDS ORDERED: Ferrous Sulfate 325 MG TAB PO SCH (21:00)
[2020-10-14 06:32] LABS: Anion Gap 13 mmol/L (10-20); BUN (Urea Nitrogen) 12 mg/dL (8.4-25.7); Calc. Creatinine Clearance 62 mL/min (70-130); Calcium 8.9 mg/dL (7.8-10.44); Carbon Dioxide 24 mmol/L (23-31); Chloride 102 mmol/L (98-107); Glucose 72 mg/dL (83-110); Sodium 135 mmol/L (136-145)
[2020-10-14] MEDS: Lactated Ringer's 1,000 ML IV SCH (06:42)
[2020-10-14 07:58] VITALS: TEMP 97.9
[2020-10-14] MEDS ORDERED: Ferrous Sulfate 325 MG TAB PO SCH (08:00)
[2020-10-14] MEDS ORDERED: Carvedilol 3.125 MG TAB PO SCH (08:00)
[2020-10-14] MEDS ORDERED: Polyethylene Glycol 3350 17 GM Packet PO PRN (08:11)
[2020-10-14] MEDS: Saccharomyces boulardii 250 MG CAP PO SCH ×2 (10:14→15:21)
[2020-10-14] MEDS: Bupropion 150 MG XL TAB PO SCH (10:15)
[2020-10-14] MEDS: Gabapentin 300 MG CAP PO SCH ×2 (10:15→15:21)
[2020-10-14] MEDS: Apixaban 5 MG TAB PO SCH (10:15)
[2020-10-14] MEDS: Doxycycline 100 MG CAP PO SCH (10:15)
[2020-10-14] MEDS: Folic Acid 1 MG TAB PO SCH (10:15)
[2020-10-14] MEDS: Bisacodyl 5 MG TAB PO SCH (10:15)
[2020-10-14] MEDS: Cyanocobalamin (Vitamin B-12) 1,000 MCG TAB PO SCH (10:15)
[2020-10-14] MEDS: Senokot 8.6 MG TAB PO SCH (10:16)
[2020-10-14 11:38] VITALS: BP 129/62
== END 2020-10-14 16:31 | DRG 300 ==
LOC: ERS 18:54 → SURG B 23:04
PROVIDERS: ADMIT Student in an Organized Health Care Education/Training Program; ATTEND Family Medicine
DX: I82.432 Acute embolism and thrombosis of left popliteal vein (principal); I13.0 Hypertensive heart and chronic kidney disease with heart failure and stage 1 through stage 4 chronic kidney disease, or unspecified chronic kidney disease; I50.42 Chronic combined systolic (congestive) and diastolic (congestive) heart failure; L03.116 Cellulitis of left lower limb; E87.1 Hypo-osmolality and hyponatremia; N17.9 Acute kidney failure, unspecified; E87.2 Acidosis; N39.0 Urinary tract infection, site not specified; M19.90 Unspecified osteoarthritis, unspecified site; D64.9 Anemia, unspecified; N18.30 Chronic kidney disease, stage 3 unspecified; D53.9 Nutritional anemia, unspecified; R53.81 Other malaise; H00.15 Chalazion left lower eyelid; K59.00 Constipation, unspecified; E86.0 Dehydration
CPT/HCPCS: 36415; 36416; 80048; 80053; 81001; 82550; 82570; 82607; 82728; 82746; 83540; 83550; 83605; 84145; 84156; 84300; 84484; 84540; 85025; 85060; 85610; 85730; 86850; 86900; 86901; 87040; 87077; 87086; 87186; 87635; 93005; 96365; 96367; 96375; J0692; J1650; J2270; J2405; J3370; J7070; Q0162; U0003; U0005

== ENCOUNTER 2020-11-04 11:45 | Inpatient (IN) | payer MEDICARE ==
[2020-11-04 12:36] LABS: Hemoglobin 9.8 g/dL (14.0-18.0); Mean Corpuscular HGB CONC 33.8 g/dL (32.0-36.0); Mean Corpuscular Hemoglobin 35.3 pg (27.0-31.0); Mean Platelet Volume 11.6 fL (7.4-10.4); Platelet Count 91 thou/uL (130-400); RBC Distribution Width 14.6 % (11.5-14.5); Red Blood Cell (RBC) Count 2.78 mill/uL (4.70-6.10); White Blood Cell (WBC) Count 7.5 thou/uL (4.8-10.8)
[2020-11-04 12:44] LABS: ALT (SGPT) 31 U/L (8-55); AST (SGOT) 37 U/L (5-34); Albumin 3.5 g/dL (3.4-4.8); Alkaline Phosphatase 96 U/L (40-110); Anion Gap 15 mmol/L (10-20); BUN (Urea Nitrogen) 25 mg/dL (8.4-25.7); Bilirubin, Total 1.1 mg/dL (0.2-1.2); Calc. Creatinine Clearance 0 mL/min (70-130); Calcium 9.8 mg/dL (7.8-10.44); Carbon Dioxide 18 mmol/L (23-31); Chloride 102 mmol/L (98-107); Globulin 5.8 g/dL (2.4-3.5); Glucose 114 mg/dL (83-110); Potassium 4.3 mmol/L (3.5-5.1); Protein, Total 9.3 g/dL (5.8-8.1); Sodium 131 mmol/L (136-145)
[2020-11-04 12:47] LABS: Band 8 % (5-11); Large Platelets SLIGHT; Lymphocytes 19 % (21-51); MDiff Complete? YES; Macrocytosis SLIGHT = 6-15 cells (100X) (0-5/hpf); Metamyelocyte 1 % (0-0); Monocytes 23 % (0-10); Neutrophil 48 % (42-75); Platelet Morphology Comment Appears Decreased; Polychromasia SLIGHT = 2-3 cells (100X) (0-2/hpf)
[2020-11-04 16:49] LABS: Lactic Acid 1.3 mmol/L (0.5-2.2)
[2020-11-04] MEDS ORDERED: Ondansetron ODT 4 MG TAB PO PRN (23:35)
[2020-11-04] MEDS ORDERED: Ondansetron PF 4 MG/2 ML Vial IVP PRN (23:35)
[2020-11-04] MEDS ORDERED: Acetaminophen 325 MG TAB PO PRN (23:35)
[2020-11-04] MEDS ORDERED: Acetaminophen 650 MG Suppository PR PRN (23:35)
[2020-11-05] MEDS: traMADol HCl 50 MG TAB PO PRN ×3 (00:21→15:39)
[2020-11-05 05:25] LABS: SARS-CoV-2 PCR by NAA Not Detected (NotDetected)
[2020-11-05 07:41] LABS: Hemoglobin 8.8 g/dL (14.0-18.0); Mean Corpuscular HGB CONC 33.6 g/dL (32.0-36.0); Mean Corpuscular Hemoglobin 35.2 pg (27.0-31.0); Mean Platelet Volume 10.5 fL (7.4-10.4); Platelet Count 89 thou/uL (130-400); RBC Distribution Width 14.3 % (11.5-14.5); White Blood Cell (WBC) Count 5.7 thou/uL (4.8-10.8)
[2020-11-05 07:48] LABS: Anion Gap 12 mmol/L (10-20); BUN (Urea Nitrogen) 18 mg/dL (8.4-25.7); Calc. Creatinine Clearance 54 mL/min (70-130); Calcium 9.2 mg/dL (7.8-10.44); Carbon Dioxide 20 mmol/L (23-31); Chloride 107 mmol/L (98-107); Glucose 75 mg/dL (83-110); Potassium 3.9 mmol/L (3.5-5.1); Sodium 135 mmol/L (136-145)
[2020-11-05] MEDS: Ferrous Sulfate 325 MG TAB PO SCH (07:50)
[2020-11-05] MEDS: Carvedilol 3.125 MG TAB PO SCH ×2 (07:50→15:40)
[2020-11-05] MEDS: Folic Acid 1 MG TAB PO SCH (07:50)
[2020-11-05] MEDS: Apixaban 5 MG TAB PO SCH ×2 (07:50→22:04)
[2020-11-05] MEDS: Gabapentin 300 MG CAP PO SCH ×3 (07:51→22:03)
[2020-11-05] MEDS: Diclofenac 1% 100 GM GEL TP SCH ×5 (07:51→22:02)
[2020-11-05] MEDS: Polyethylene Glycol 3350 17 GM Packet PO SCH (07:52)
[2020-11-05] MEDS ORDERED: Bupropion 150 MG XL TAB PO SCH ×2 (08:00→09:00)
[2020-11-05 08:06] LABS: Band 8 % (5-11); Lymphocytes 22 % (21-51); MDiff Complete? YES; Macrocytosis SLIGHT = 6-15 cells (100X) (0-5/hpf); Monocytes 26 % (0-10); Neutrophil 44 % (42-75); Platelet Morphology Comment Appears Decreased; Polychromasia SLIGHT = 2-3 cells (100X) (0-2/hpf)
[2020-11-05 11:12] VITALS: BMI 31.0
[2020-11-06 06:34] LABS: Hemoglobin 8.8 g/dL (14.0-18.0); Mean Corpuscular HGB CONC 32.7 g/dL (32.0-36.0); Mean Corpuscular Hemoglobin 34.7 pg (27.0-31.0); Mean Platelet Volume 10.2 fL (7.4-10.4); Platelet Count 109 thou/uL (130-400); RBC Distribution Width 14.4 % (11.5-14.5); Red Blood Cell (RBC) Count 2.54 mill/uL (4.70-6.10); White Blood Cell (WBC) Count 4.7 thou/uL (4.8-10.8)
[2020-11-06 06:40] LABS: Anion Gap 13 mmol/L (10-20); BUN (Urea Nitrogen) 13 mg/dL (8.4-25.7); Calc. Creatinine Clearance 57 mL/min (70-130); Calcium 8.9 mg/dL (7.8-10.44); Carbon Dioxide 22 mmol/L (23-31); Chloride 107 mmol/L (98-107); Glucose 68 mg/dL (83-110); Sodium 138 mmol/L (136-145)
[2020-11-06 08:18] LABS: Band 4 % (5-11); Lymphocytes 30 % (21-51); MDiff Complete? YES; Macrocytosis SLIGHT = 6-15 cells (100X) (0-5/hpf); Monocytes 27 % (0-10); Neutrophil 38 % (42-75); Platelet Morphology Comment Appears Decreased; Polychromasia SLIGHT = 2-3 cells (100X) (0-2/hpf)
[2020-11-06] MEDS: Gabapentin 300 MG CAP PO SCH ×3 (09:42→20:40)
[2020-11-06] MEDS: Carvedilol 3.125 MG TAB PO SCH ×2 (09:42→17:53)
[2020-11-06] MEDS: Apixaban 5 MG TAB PO SCH ×2 (09:42→20:39)
[2020-11-06] MEDS: Bupropion 150 MG XL TAB PO SCH (09:42)
[2020-11-06] MEDS: Ferrous Sulfate 325 MG TAB PO SCH (09:43)
[2020-11-06] MEDS: Diclofenac 1% 100 GM GEL TP SCH ×4 (09:43→20:40)
[2020-11-06] MEDS: Folic Acid 1 MG TAB PO SCH (09:43)
[2020-11-06] MEDS: Polyethylene Glycol 3350 17 GM Packet PO SCH (09:45)
[2020-11-07] MEDS: traMADol HCl 50 MG TAB PO PRN (05:59)
[2020-11-07] MEDS: Bupropion 150 MG XL TAB PO SCH (07:46)
[2020-11-07] MEDS: Ferrous Sulfate 325 MG TAB PO SCH (07:46)
[2020-11-07] MEDS: Carvedilol 3.125 MG TAB PO SCH ×2 (07:46→17:16)
[2020-11-07] MEDS: Diclofenac 1% 100 GM GEL TP SCH ×4 (07:47→20:43)
[2020-11-07] MEDS: Gabapentin 300 MG CAP PO SCH ×3 (07:47→20:42)
[2020-11-07] MEDS: Folic Acid 1 MG TAB PO SCH (07:47)
[2020-11-07] MEDS: Apixaban 5 MG TAB PO SCH ×2 (07:47→20:42)
[2020-11-07] MEDS: Polyethylene Glycol 3350 17 GM Packet PO SCH (07:56)
[2020-11-08] MEDS: traMADol HCl 50 MG TAB PO PRN ×2 (00:04→22:47)
[2020-11-08] MEDS: Polyethylene Glycol 3350 17 GM Packet PO SCH (07:19)
[2020-11-08] MEDS: Diclofenac 1% 100 GM GEL TP SCH ×4 (09:40→20:08)
[2020-11-08] MEDS: Gabapentin 300 MG CAP PO SCH ×3 (09:41→20:08)
[2020-11-08] MEDS: Bupropion 150 MG XL TAB PO SCH (12:16)
[2020-11-08] MEDS: Apixaban 5 MG TAB PO SCH ×2 (12:16→20:08)
[2020-11-08] MEDS: Ferrous Sulfate 325 MG TAB PO SCH (12:16)
[2020-11-08] MEDS: Folic Acid 1 MG TAB PO SCH (12:16)
[2020-11-08] MEDS: Carvedilol 3.125 MG TAB PO SCH ×2 (12:51→17:16)
[2020-11-09] MEDS: Carvedilol 3.125 MG TAB PO SCH ×2 (08:52→18:20)
[2020-11-09] MEDS: Bupropion 150 MG XL TAB PO SCH (08:52)
[2020-11-09] MEDS: Ferrous Sulfate 325 MG TAB PO SCH (08:52)
[2020-11-09] MEDS: Apixaban 5 MG TAB PO SCH ×2 (08:52→20:15)
[2020-11-09] MEDS: Gabapentin 300 MG CAP PO SCH ×3 (08:52→20:15)
[2020-11-09] MEDS: Polyethylene Glycol 3350 17 GM Packet PO SCH (08:53)
[2020-11-09] MEDS: Folic Acid 1 MG TAB PO SCH (08:53)
[2020-11-09] MEDS: Diclofenac 1% 100 GM GEL TP SCH ×4 (08:54→21:45)
[2020-11-09] MEDS: traMADol HCl 50 MG TAB PO PRN (18:42)
[2020-11-10 07:30] VITALS: BP 104/66; TEMP 97.6
[2020-11-10] MEDS: Polyethylene Glycol 3350 17 GM Packet PO SCH (07:57)
[2020-11-10] MEDS: Gabapentin 300 MG CAP PO SCH (07:58)
[2020-11-10] MEDS: Carvedilol 3.125 MG TAB PO SCH (07:58)
[2020-11-10] MEDS: Apixaban 5 MG TAB PO SCH (08:02)
[2020-11-10] MEDS: Folic Acid 1 MG TAB PO SCH (08:02)
[2020-11-10] MEDS: Ferrous Sulfate 325 MG TAB PO SCH (08:02)
[2020-11-10] MEDS: Diclofenac 1% 100 GM GEL TP SCH ×2 (08:03→14:27)
[2020-11-10] MEDS: Bupropion 150 MG XL TAB PO SCH (08:06)
[2020-11-10] MEDS ORDERED: Acetaminophen 325 MG TAB PO PRN (15:41)
[2020-11-10] MEDS ORDERED: Acetaminophen 650 MG Suppository PR PRN (15:42)
[2020-11-10] MEDS ORDERED: Ondansetron PF 4 MG/2 ML Vial IVP PRN (15:42)
[2020-11-10] MEDS ORDERED: Ondansetron ODT 4 MG TAB PO PRN (15:42)
[2020-11-10] MEDS ORDERED: traMADol HCl 50 MG TAB PO PRN (15:44)
[2020-11-10] MEDS ORDERED: Diclofenac 1% 100 GM GEL TP SCH (17:00)
[2020-11-10] MEDS ORDERED: Carvedilol 3.125 MG TAB PO SCH (17:00)
[2020-11-10] MEDS ORDERED: Gabapentin 300 MG CAP PO SCH (21:00)
[2020-11-10] MEDS ORDERED: Apixaban 5 MG TAB PO SCH (21:00)
[2020-11-11] MEDS ORDERED: Ferrous Sulfate 325 MG TAB PO SCH (08:00)
[2020-11-11] MEDS ORDERED: Folic Acid 1 MG TAB PO SCH (09:00)
[2020-11-11] MEDS ORDERED: Polyethylene Glycol 3350 17 GM Packet PO SCH (09:00)
[2020-11-11] MEDS ORDERED: Bupropion 150 MG XL TAB PO SCH (09:00)
== END 2020-11-10 16:25 | DRG 552 ==
LOC: ERS 11:45 → T4-A 20:07 → OBSVTOIN 23:35 → UNDODISIN 11-10 13:26
PROVIDERS: ADMIT Emergency Medicine; ATTEND Emergency Medicine
DX: S32.2XXA Fracture of coccyx, initial encounter for closed fracture (principal); I13.0 Hypertensive heart and chronic kidney disease with heart failure and stage 1 through stage 4 chronic kidney disease, or unspecified chronic kidney disease; N17.9 Acute kidney failure, unspecified; E87.1 Hypo-osmolality and hyponatremia; W05.0XXA Fall from non-moving wheelchair, initial encounter; M19.90 Unspecified osteoarthritis, unspecified site; I50.9 Heart failure, unspecified; D53.9 Nutritional anemia, unspecified; D63.1 Anemia in chronic kidney disease; N18.30 Chronic kidney disease, stage 3 unspecified; D50.9 Iron deficiency anemia, unspecified; R53.81 Other malaise; Z20.822 Contact with and (suspected) exposure to COVID-19; N40.0 Benign prostatic hyperplasia without lower urinary tract symptoms; Z86.73 Personal history of transient ischemic attack (TIA), and cerebral infarction without residual deficits; Z86.718 Personal history of other venous thrombosis and embolism
CPT/HCPCS: 36415; 36416; 70450; 72131; 72192; 80048; 80053; 83605; 85025; 87635; 93005; 94760; G0378; J2405; U0003; U0005

== ENCOUNTER 2020-12-10 10:48 | Emergency (ER) | payer MEDICARE ==
[2020-12-10] MEDS ORDERED: HYDROcodone/Acetaminophen 5/325 mg Tablet ONE (12:13)
== END 2020-12-10 14:25 | disposition home or self-care (01) ==
LOC: ERS 10:48
DX: M17.12 Unilateral primary osteoarthritis, left knee (principal); I11.0 Hypertensive heart disease with heart failure; I50.9 Heart failure, unspecified; N40.0 Benign prostatic hyperplasia without lower urinary tract symptoms; Z79.899 Other long term (current) drug therapy; W19.XXXA Unspecified fall, initial encounter

== ENCOUNTER 2021-01-07 11:29 | Inpatient (IN) | payer MEDICARE ==
[2021-01-07 14:02] LABS: Hemoglobin 9.2 g/dL (14.0-18.0); Mean Corpuscular HGB CONC 32.1 g/dL (32.0-36.0); Mean Corpuscular Hemoglobin 35.3 pg (27.0-31.0); Mean Platelet Volume 8.9 fL (7.4-10.4); Platelet Count 161 thou/uL (130-400); RBC Distribution Width 14.4 % (11.5-14.5); Red Blood Cell (RBC) Count 2.62 mill/uL (4.70-6.10); White Blood Cell (WBC) Count 5.9 thou/uL (4.8-10.8)
[2021-01-07 14:18] LABS: ALT (SGPT) Less than 7 U/L (8-55); AST (SGOT) 13 U/L (5-34); Albumin 3.1 g/dL (3.4-4.8); Alkaline Phosphatase 84 U/L (40-110); Anion Gap 13 mmol/L (10-20); BUN (Urea Nitrogen) 16 mg/dL (8.4-25.7); Bilirubin, Total 0.5 mg/dL (0.2-1.2); Calc. Creatinine Clearance 0 mL/min (70-130); Calcium 8.3 mg/dL (7.8-10.44); Carbon Dioxide 20 mmol/L (23-31); Chloride 106 mmol/L (98-107); Globulin 5.2 g/dL (2.4-3.5); Glucose 96 mg/dL (83-110); Potassium 4.7 mmol/L (3.5-5.1); Protein, Total 8.3 g/dL (5.8-8.1); Sodium 134 mmol/L (136-145)
[2021-01-07 14:26] LABS: Band 14 % (5-11); Eosinophils 1 % (0-10); Lymphocytes 28 % (21-51); MDiff Complete? YES; Macrocytosis SLIGHT = 6-15 cells (100X) (0-5/hpf); Monocytes 29 % (0-10); Neutrophil 23 % (42-75); Platelet Morphology Comment Appears Adequate; Polychromasia SLIGHT = 2-3 cells (100X) (0-2/hpf); Reactive Lymphocytes 5 % (0-10)
[2021-01-07] MEDS ORDERED: Cefepime 2 GM VIAL ONE (14:35)
[2021-01-07] MEDS ORDERED: Vancomycin 1 GM/200 ML BAG ONE (15:45)
[2021-01-07] MEDS ORDERED: Bisacodyl 10 MG SUPP PR PRN (17:18)
[2021-01-07] MEDS ORDERED: Senokot S 8.6-50 MG TAB PO PRN (17:18)
[2021-01-07] MEDS ORDERED: Ondansetron PF 4 MG/2 ML Vial IVP PRN (17:18)
[2021-01-07] MEDS ORDERED: Ondansetron ODT 4 MG TAB PO PRN (17:18)
[2021-01-07] MEDS ORDERED: Loperamide HCl 2 MG CAP PO PRN (17:18)
[2021-01-07] MEDS ORDERED: Guaifenesin DM 100-10/5 ML UDCUP PO PRN (17:18)
[2021-01-07] MEDS ORDERED: Acetaminophen 325 MG TAB PO PRN (17:18)
[2021-01-07] MEDS ORDERED: Zolpidem Tartrate 5 MG TAB PO PRN (17:18)
[2021-01-07] MEDS ORDERED: Calcium Carbonate 500 MG ChewTAB PO PRN (17:18)
[2021-01-07 19:28] VITALS: BMI 31.5
[2021-01-07] MEDS: Famotidine 20 MG TAB PO SCH (20:41)
[2021-01-08] MEDS: CEFEPIME HCL IN DEXTROSE 5 % 1 GM in Premix Bag 1 BAG IVPB SCH ×2 (03:21→15:50)
[2021-01-08] MEDS: HYDROcodone/Acetaminophen 5/325 mg Tablet PO PRN (03:31)
[2021-01-08 06:36] LABS: Mean Corpuscular HGB CONC 32.3 g/dL (32.0-36.0); Mean Corpuscular Hemoglobin 34.8 pg (27.0-31.0); Mean Platelet Volume 8.5 fL (7.4-10.4); Platelet Count 134 thou/uL (130-400); RBC Distribution Width 14.5 % (11.5-14.5); White Blood Cell (WBC) Count 4.2 thou/uL (4.8-10.8)
[2021-01-08 06:42] LABS: Anion Gap 12 mmol/L (10-20); BUN (Urea Nitrogen) 16 mg/dL (8.4-25.7); Calc. Creatinine Clearance 75 mL/min (70-130); Calcium 8.6 mg/dL (7.8-10.44); Carbon Dioxide 19 mmol/L (23-31); Chloride 108 mmol/L (98-107); Glucose 85 mg/dL (83-110); Potassium 4.2 mmol/L (3.5-5.1); Sodium 135 mmol/L (136-145)
[2021-01-08 06:55] LABS: Band 12 % (5-11); Lymphocytes 30 % (21-51); MDiff Complete? YES; Macrocytosis SLIGHT = 6-15 cells (100X) (0-5/hpf); Metamyelocyte 1 % (0-0); Monocytes 30 % (0-10); Neutrophil 26 % (42-75)
[2021-01-08 07:43] LABS: SARS-CoV-2 PCR by NAA Not Detected (NotDetected)
[2021-01-08] MEDS: Famotidine 20 MG TAB PO SCH ×2 (08:25→20:52)
[2021-01-08] MEDS ORDERED: Acetaminophen 325 MG TAB PO PRN (09:55)
[2021-01-08] MEDS: Saccharomyces boulardii 250 MG CAP PO SCH ×3 (11:13→20:51)
[2021-01-08] MEDS: Gabapentin 300 MG CAP PO SCH ×2 (15:50→20:53)
[2021-01-08] MEDS: VANCOMYCIN 1.75 GM/350 ML BAG 1.75 GM in Premix Bag 1 BAG IVPB SCH (16:52)
[2021-01-08] MEDS: Potassium Chloride 20 MEQ TAB PO SCH (20:52)
[2021-01-08] MEDS: Tamsulosin HCl 0.4 MG CAP PO SCH (20:52)
[2021-01-08] MEDS: Carvedilol 6.25 MG TAB PO SCH (20:53)
[2021-01-08] MEDS: Apixaban 5 MG TAB PO SCH (20:53)
[2021-01-08] MEDS ORDERED: Temazepam 15 MG CAP PO PRN (22:41)
[2021-01-08] MEDS: traMADol HCl 50 MG TAB PO PRN (23:51)
[2021-01-09] MEDS: CEFEPIME HCL IN DEXTROSE 5 % 1 GM in Premix Bag 1 BAG IVPB SCH ×2 (02:30→15:16)
[2021-01-09 06:18] LABS: Hemoglobin 9.6 g/dL (14.0-18.0); Mean Corpuscular HGB CONC 31.4 g/dL (32.0-36.0); Mean Corpuscular Hemoglobin 34.6 pg (27.0-31.0); Mean Platelet Volume 8.9 fL (7.4-10.4); Platelet Count 145 thou/uL (130-400); RBC Distribution Width 14.5 % (11.5-14.5); Red Blood Cell (RBC) Count 2.77 mill/uL (4.70-6.10); White Blood Cell (WBC) Count 3.3 thou/uL (4.8-10.8)
[2021-01-09 06:21] LABS: Anion Gap 15 mmol/L (10-20); BUN (Urea Nitrogen) 13 mg/dL (8.4-25.7); CRP (Inflammatory) 5.56 mg/dL (= or < 0.5); Calc. Creatinine Clearance 75 mL/min (70-130); Calcium 8.8 mg/dL (7.8-10.44); Carbon Dioxide 17 mmol/L (23-31); Chloride 107 mmol/L (98-107); Glucose 80 mg/dL (83-110); Potassium 4.6 mmol/L (3.5-5.1); Sodium 134 mmol/L (136-145)
[2021-01-09] MEDS: Saccharomyces boulardii 250 MG CAP PO SCH ×4 (06:31→21:10)
[2021-01-09 08:27] LABS: Band 14 % (5-11); Eosinophils 1 % (0-10); Lymphocytes 43 % (21-51); MDiff Complete? YES; Macrocytosis SLIGHT = 6-15 cells (100X) (0-5/hpf); Monocytes 27 % (0-10); Neutrophil 13 % (42-75); Platelet Morphology Comment Appears Adequate; Polychromasia SLIGHT = 2-3 cells (100X) (0-2/hpf); Reactive Lymphocytes 2 % (0-10)
[2021-01-09] MEDS: Carvedilol 6.25 MG TAB PO SCH ×2 (09:09→21:09)
[2021-01-09] MEDS: Furosemide 20 MG TAB PO SCH (09:10)
[2021-01-09] MEDS: Apixaban 5 MG TAB PO SCH ×2 (09:10→21:09)
[2021-01-09] MEDS: Bupropion 150 MG XL TAB PO SCH (09:10)
[2021-01-09] MEDS: Potassium Chloride 20 MEQ TAB PO SCH ×2 (09:11→21:10)
[2021-01-09] MEDS: Famotidine 20 MG TAB PO SCH ×2 (09:11→21:09)
[2021-01-09] MEDS: Ferrous Sulfate 325 MG TAB PO SCH (09:12)
[2021-01-09] MEDS: Folic Acid 1 MG TAB PO SCH (09:12)
[2021-01-09] MEDS: Gabapentin 300 MG CAP PO SCH ×3 (09:12→21:10)
[2021-01-09] MEDS: Polyethylene Glycol 3350 17 GM Packet PO SCH (09:12)
[2021-01-09] MEDS: VANCOMYCIN 1.75 GM/350 ML BAG 1.75 GM in Premix Bag 1 BAG IVPB SCH (16:22)
[2021-01-09] MEDS: HYDROcodone/Acetaminophen 5/325 mg Tablet PO PRN (16:23)
[2021-01-09] MEDS: Tamsulosin HCl 0.4 MG CAP PO SCH (21:10)
[2021-01-10] MEDS: CEFEPIME HCL IN DEXTROSE 5 % 1 GM in Premix Bag 1 BAG IVPB SCH ×2 (03:49→13:49)
[2021-01-10] MEDS: HYDROcodone/Acetaminophen 5/325 mg Tablet PO PRN ×2 (04:52→16:32)
[2021-01-10] MEDS: Gabapentin 300 MG CAP PO SCH ×3 (09:10→20:51)
[2021-01-10] MEDS: Bupropion 150 MG XL TAB PO SCH (09:10)
[2021-01-10] MEDS: Apixaban 5 MG TAB PO SCH ×2 (09:10→20:51)
[2021-01-10] MEDS: Potassium Chloride 20 MEQ TAB PO SCH ×2 (09:10→20:51)
[2021-01-10] MEDS: Famotidine 20 MG TAB PO SCH ×2 (09:10→20:51)
[2021-01-10] MEDS: Folic Acid 1 MG TAB PO SCH (09:10)
[2021-01-10] MEDS: Saccharomyces boulardii 250 MG CAP PO SCH ×4 (09:10→20:50)
[2021-01-10] MEDS: Carvedilol 6.25 MG TAB PO SCH ×2 (09:11→20:52)
[2021-01-10] MEDS: Ferrous Sulfate 325 MG TAB PO SCH (09:11)
[2021-01-10] MEDS: Furosemide 20 MG TAB PO SCH (09:11)
[2021-01-10] MEDS: Polyethylene Glycol 3350 17 GM Packet PO SCH (09:11)
[2021-01-10] MEDS: traMADol HCl 50 MG TAB PO PRN (14:48)
[2021-01-10 15:59] LABS: Vancomycin, Trough 25.5 ug/mL
[2021-01-10] MEDS ORDERED: Lidocaine 5% Patch TD SCH (16:30)
[2021-01-10] MEDS: VANCOMYCIN 1.75 GM/350 ML BAG 1.75 GM in Premix Bag 1 BAG IVPB SCH (16:32)
[2021-01-10] MEDS: Tamsulosin HCl 0.4 MG CAP PO SCH (20:50)
[2021-01-10] MEDS: Transdermal Patch Removal TOP SCH (20:53)
[2021-01-11] MEDS: CEFEPIME HCL IN DEXTROSE 5 % 1 GM in Premix Bag 1 BAG IVPB SCH ×2 (03:15→15:41)
[2021-01-11] MEDS: HYDROcodone/Acetaminophen 5/325 mg Tablet PO PRN ×2 (03:16→22:41)
[2021-01-11 06:56] LABS: Anion Gap 11 mmol/L (10-20); BUN (Urea Nitrogen) 23 mg/dL (8.4-25.7); CRP (Inflammatory) 2.56 mg/dL (= or < 0.5); Calc. Creatinine Clearance 68 mL/min (70-130); Calcium 9.1 mg/dL (7.8-10.44); Carbon Dioxide 20 mmol/L (23-31); Chloride 107 mmol/L (98-107); Glucose 86 mg/dL (83-110); Potassium 5.3 mmol/L (3.5-5.1); Sodium 133 mmol/L (136-145)
[2021-01-11 07:15] LABS: Hemoglobin 9.9 g/dL (14.0-18.0); Mean Corpuscular HGB CONC 34.3 g/dL (32.0-36.0); Mean Corpuscular Hemoglobin 36.6 pg (27.0-31.0); Mean Platelet Volume 9.1 fL (7.4-10.4); Platelet Count 135 thou/uL (130-400); RBC Distribution Width 14.3 % (11.5-14.5); Red Blood Cell (RBC) Count 2.71 mill/uL (4.70-6.10); White Blood Cell (WBC) Count 3.6 thou/uL (4.8-10.8)
[2021-01-11 08:03] LABS: Lymphocytes 42 % (21-51); MDiff Complete? YES; Monocytes 30 % (0-10); Neutrophil 28 % (42-75); Platelet Morphology Comment Appears Adequate
[2021-01-11] MEDS: Saccharomyces boulardii 250 MG CAP PO SCH ×4 (08:45→21:10)
[2021-01-11] MEDS: Potassium Chloride 20 MEQ TAB PO SCH ×2 (08:45→21:11)
[2021-01-11] MEDS: Furosemide 20 MG TAB PO SCH (08:45)
[2021-01-11] MEDS: Gabapentin 300 MG CAP PO SCH ×3 (08:45→21:11)
[2021-01-11] MEDS: Ferrous Sulfate 325 MG TAB PO SCH (08:46)
[2021-01-11] MEDS: Famotidine 20 MG TAB PO SCH ×2 (08:46→21:10)
[2021-01-11] MEDS: Carvedilol 6.25 MG TAB PO SCH ×2 (08:46→21:11)
[2021-01-11] MEDS: Apixaban 5 MG TAB PO SCH ×2 (08:47→21:11)
[2021-01-11] MEDS: Polyethylene Glycol 3350 17 GM Packet PO SCH (08:47)
[2021-01-11] MEDS: Bupropion 150 MG XL TAB PO SCH (08:47)
[2021-01-11] MEDS: Folic Acid 1 MG TAB PO SCH (08:50)
[2021-01-11] MEDS: Lidocaine 5% Patch TD SCH (08:50)
[2021-01-11] MEDS ORDERED: VANCOMYCIN 1.25 GM/250 ML BAG 1.25 GM in Premix Bag 1 BAG IVPB SCH (16:00)
[2021-01-11] MEDS ORDERED: Transdermal Patch Removal TOP SCH (21:00)
[2021-01-11] MEDS: Tamsulosin HCl 0.4 MG CAP PO SCH (21:11)
[2021-01-11] MEDS: Transdermal Patch Removal TOP SCH (21:14)
[2021-01-12] MEDS: CEFEPIME HCL IN DEXTROSE 5 % 1 GM in Premix Bag 1 BAG IVPB SCH ×2 (02:33→14:45)
[2021-01-12 07:15] LABS: Anion Gap 11 mmol/L (10-20); BUN (Urea Nitrogen) 24 mg/dL (8.4-25.7); Calc. Creatinine Clearance 60 mL/min (70-130); Calcium 8.9 mg/dL (7.8-10.44); Carbon Dioxide 21 mmol/L (23-31); Chloride 105 mmol/L (98-107); Glucose 83 mg/dL (83-110); Potassium 4.4 mmol/L (3.5-5.1); Sodium 133 mmol/L (136-145)
[2021-01-12] MEDS: Saccharomyces boulardii 250 MG CAP PO SCH ×4 (08:47→20:12)
[2021-01-12] MEDS: Famotidine 20 MG TAB PO SCH ×2 (08:47→20:13)
[2021-01-12] MEDS: Apixaban 5 MG TAB PO SCH ×2 (08:48→20:10)
[2021-01-12] MEDS: Gabapentin 300 MG CAP PO SCH ×3 (08:48→20:11)
[2021-01-12] MEDS: Carvedilol 6.25 MG TAB PO SCH ×2 (08:48→20:13)
[2021-01-12] MEDS: Furosemide 20 MG TAB PO SCH (08:48)
[2021-01-12] MEDS: Bupropion 150 MG XL TAB PO SCH (08:48)
[2021-01-12] MEDS: Potassium Chloride 20 MEQ TAB PO SCH ×2 (08:49→20:11)
[2021-01-12] MEDS: Folic Acid 1 MG TAB PO SCH (08:49)
[2021-01-12] MEDS: Ferrous Sulfate 325 MG TAB PO SCH (08:49)
[2021-01-12] MEDS: Lidocaine 5% Patch TD SCH (08:50)
[2021-01-12] MEDS: Polyethylene Glycol 3350 17 GM Packet PO SCH (08:51)
[2021-01-12] MEDS: traMADol HCl 50 MG TAB PO PRN (12:08)
[2021-01-12 15:15] LABS: Vancomycin, Trough 24.4 ug/mL
[2021-01-12] MEDS: Vancomycin 1 GM in Premix Bag 1 BAG IVPB SCH (16:11)
[2021-01-12] MEDS: Tamsulosin HCl 0.4 MG CAP PO SCH (20:13)
[2021-01-12] MEDS: Transdermal Patch Removal TOP SCH (21:00)
[2021-01-13] MEDS: CEFEPIME HCL IN DEXTROSE 5 % 1 GM in Premix Bag 1 BAG IVPB SCH (03:00)
[2021-01-13] MEDS: HYDROcodone/Acetaminophen 5/325 mg Tablet PO PRN (03:03)
[2021-01-13 06:29] LABS: Hemoglobin 9.2 g/dL (14.0-18.0); Mean Corpuscular HGB CONC 31.3 g/dL (32.0-36.0); Mean Corpuscular Hemoglobin 33.8 pg (27.0-31.0); Mean Platelet Volume 9.1 fL (7.4-10.4); Platelet Count 143 thou/uL (130-400); RBC Distribution Width 14.3 % (11.5-14.5); Red Blood Cell (RBC) Count 2.71 mill/uL (4.70-6.10); White Blood Cell (WBC) Count 3.3 thou/uL (4.8-10.8)
[2021-01-13 06:43] LABS: Anion Gap 13 mmol/L (10-20); BUN (Urea Nitrogen) 22 mg/dL (8.4-25.7); Calc. Creatinine Clearance 66 mL/min (70-130); Carbon Dioxide 18 mmol/L (23-31); Chloride 107 mmol/L (98-107); Glucose 77 mg/dL (83-110); Sodium 133 mmol/L (136-145)
[2021-01-13 08:36] LABS: Band 4 % (5-11); Eosinophils 2 % (0-10); Lymphocytes 47 % (21-51); MDiff Complete? YES; Macrocytosis SLIGHT = 6-15 cells (100X) (0-5/hpf); Metamyelocyte 1 % (0-0); Monocytes 24 % (0-10); Myelocyte 1 % (0-0); Neutrophil 20 % (42-75); Platelet Morphology Comment Appears Adequate; Polychromasia SLIGHT = 2-3 cells (100X) (0-2/hpf)
[2021-01-13] MEDS: Apixaban 5 MG TAB PO SCH ×2 (08:40→21:09)
[2021-01-13] MEDS: Carvedilol 6.25 MG TAB PO SCH ×2 (08:40→21:08)
[2021-01-13] MEDS: Bupropion 150 MG XL TAB PO SCH (08:40)
[2021-01-13] MEDS: Saccharomyces boulardii 250 MG CAP PO SCH ×4 (08:40→21:10)
[2021-01-13] MEDS: Ferrous Sulfate 325 MG TAB PO SCH (08:40)
[2021-01-13] MEDS: Folic Acid 1 MG TAB PO SCH (08:42)
[2021-01-13] MEDS: Potassium Chloride 20 MEQ TAB PO SCH ×2 (08:42→21:07)
[2021-01-13] MEDS: Furosemide 20 MG TAB PO SCH (08:42)
[2021-01-13] MEDS: Gabapentin 300 MG CAP PO SCH ×3 (08:42→21:06)
[2021-01-13] MEDS: Famotidine 20 MG TAB PO SCH ×2 (08:42→21:07)
[2021-01-13] MEDS: Polyethylene Glycol 3350 17 GM Packet PO SCH (08:43)
[2021-01-13] MEDS: Lidocaine 5% Patch TD SCH (08:43)
[2021-01-13] MEDS: Cefepime 1 GM in Sodium Chloride 0.9% 100 ML IVPB SCH (14:48)
[2021-01-13] MEDS: Vancomycin 1 GM in Premix Bag 1 BAG IVPB SCH (16:21)
[2021-01-13] MEDS: Tamsulosin HCl 0.4 MG CAP PO SCH (21:10)
[2021-01-13] MEDS: Transdermal Patch Removal TOP SCH (21:10)
[2021-01-14] MEDS: HYDROcodone/Acetaminophen 5/325 mg Tablet PO PRN (01:02)
[2021-01-14] MEDS: Cefepime 1 GM in Sodium Chloride 0.9% 100 ML IVPB SCH ×2 (02:21→14:51)
[2021-01-14] MEDS: Saccharomyces boulardii 250 MG CAP PO SCH ×3 (08:30→17:39)
[2021-01-14] MEDS: Ferrous Sulfate 325 MG TAB PO SCH (08:30)
[2021-01-14] MEDS: Bupropion 150 MG XL TAB PO SCH (08:31)
[2021-01-14] MEDS: Apixaban 5 MG TAB PO SCH (08:31)
[2021-01-14] MEDS: Carvedilol 6.25 MG TAB PO SCH (08:31)
[2021-01-14] MEDS: Famotidine 20 MG TAB PO SCH (08:33)
[2021-01-14] MEDS: Folic Acid 1 MG TAB PO SCH (08:33)
[2021-01-14] MEDS: Potassium Chloride 20 MEQ TAB PO SCH (08:33)
[2021-01-14] MEDS: Furosemide 20 MG TAB PO SCH (08:33)
[2021-01-14] MEDS: Polyethylene Glycol 3350 17 GM Packet PO SCH (08:34)
[2021-01-14] MEDS: Gabapentin 300 MG CAP PO SCH ×2 (08:34→14:52)
[2021-01-14] MEDS: Lidocaine 5% Patch TD SCH (08:42)
[2021-01-14 15:31] LABS: Vancomycin, Trough 24.6 ug/mL
[2021-01-14 17:40] VITALS: BP 111/65; TEMP 97.8
[2021-01-14] MEDS ORDERED: Vancomycin HCl 750 MG in Sodium Chloride 0.9% 250 ML 250 ML IVPB SCH (18:00)
== END 2021-01-14 18:15 | disposition home health service (06) | DRG 603 ==
LOC: ERS 11:29 → T4-B 17:17 → OBSVTOIN 01-08 09:54
PROVIDERS: ADMIT Internal Medicine; ATTEND Family Medicine
DX: L03.116 Cellulitis of left lower limb (principal); C34.90 Malignant neoplasm of unspecified part of unspecified bronchus or lung; I13.0 Hypertensive heart and chronic kidney disease with heart failure and stage 1 through stage 4 chronic kidney disease, or unspecified chronic kidney disease; I50.42 Chronic combined systolic (congestive) and diastolic (congestive) heart failure; Z20.822 Contact with and (suspected) exposure to COVID-19; N40.0 Benign prostatic hyperplasia without lower urinary tract symptoms; F41.9 Anxiety disorder, unspecified; F32.9 Major depressive disorder, single episode, unspecified; N18.31 Chronic kidney disease, stage 3a; I25.5 Ischemic cardiomyopathy; I87.8 Other specified disorders of veins; Z79.01 Long term (current) use of anticoagulants; Z79.899 Other long term (current) drug therapy; Z86.73 Personal history of transient ischemic attack (TIA), and cerebral infarction without residual deficits
CPT/HCPCS: 36415; 71045; 80048; 80053; 80202; 83880; 84484; 85025; 86140; 93005; 96365; 96366; 96368; G0378; J0692; J3370; J3490; U0003; U0005

== ENCOUNTER 2023-02-10 08:36 | Observation (INO) | payer MEDICARE ==
[2023-02-10 09:12] LABS: Hematocrit 32.1 % (42.0-52.0); Hemoglobin 10.4 g/dL (14.0-18.0); Manual Diff?? YES; Mean Corpuscular HGB CONC 32.4 g/dL (32.0-36.0); Mean Corpuscular Hemoglobin 33.7 pg (27.0-31.0); Mean Corpuscular Volume 103.9 fl (78.0-98.0); Mean Platelet Volume 11.4 fL (7.4-10.4); Platelet Count 157 10x3/uL (130-400); Red Blood Cell (RBC) Count 3.09 mill/uL (4.70-6.10); White Blood Cell (WBC) Count 5.9 10x3/uL (4.8-10.8)
[2023-02-10 09:21] LABS: Delete Auto Diff?? YES
[2023-02-10 09:33] LABS: ALT (SGPT) 7 U/L (8-55); AST (SGOT) 14 U/L (5-34); Albumin 3.1 g/dL (3.4-4.8); Alkaline Phosphatase 92 U/L (40-110); Anion Gap 21 mmol/L (10-20); BUN (Urea Nitrogen) 15 mg/dL (8.4-25.7); Bilirubin, Total 1.7 mg/dL (0.2-1.2); CK (CPK) 95 U/L (30-200); Calc. Creatinine Clearance 0 mL/min (70-130); Calcium 8.7 mg/dL (7.8-10.44); Carbon Dioxide 16 mmol/L (23-31); Chloride 106 mmol/L (98-107); Estimated GFR 79; Globulin 5.9 g/dL (2.4-3.5); Glucose 64 mg/dL (83-110); Potassium 3.8 mmol/L (3.5-5.1); Sodium 139 mmol/L (136-145)
[2023-02-10] MEDS ORDERED: Iopamidol-370 76% 500 ML MDV (1 ML CHARGE) ONE (09:36)
[2023-02-10 09:43] LABS: Band 7 % (5-11); Lymphocytes 33 % (21-51); Monocytes 20 % (0-10); Neutrophil 39 % (42-75); Reactive Lymphocytes 1 % (0-10)
[2023-02-10 09:46] LABS: Platelet Adequacy Comment Platelets Normal; Polychromasia SLIGHT = 2-3 cells (100X) (0-2/hpf); Rouleaux Formation MODERATE= 6-15 cells (100X) (None Seen)
[2023-02-10 14:14] VITALS: BMI 22.8
[2023-02-10] MEDS: traMADol HCl 50 MG TAB PO PRN ×2 (16:38→21:46)
[2023-02-11 00:37] LABS: Bacteria/HPF 3+ HPF (None Seen); Bilirubin Negative (Negative); Blood, Urine 1+ (Negative); Clarity Turbid (Clear); Glucose, Urine (Dipstick) Normal (Negative); Ketone, Urine 10 mg/dL (Negative); Leukocyte 500 Leu/uL (Negative); Nitrite Negative (Negative); Protein, Urine (Dipstick) 100 mg/dL (Neg-Trace); RBC/HPF 0-3 HPF (0-3); Urobilinogen 3 mg/dL (Less than 2); WBC/HPF Greater than 50 HPF (0-3); pH, Urine 7.5 (5.0-9.0)
[2023-02-11 05:14] VITALS: TEMP 97.9
[2023-02-11 06:22] LABS: Hematocrit 30.6 % (42.0-52.0); Hemoglobin 9.9 g/dL (14.0-18.0); Manual Diff?? YES; Mean Corpuscular HGB CONC 32.4 g/dL (32.0-36.0); Mean Corpuscular Hemoglobin 33.7 pg (27.0-31.0); Mean Corpuscular Volume 104.1 fl (78.0-98.0); Mean Platelet Volume 10.9 fL (7.4-10.4); Platelet Count 159 10x3/uL (130-400); RBC Distribution Width 13.9 % (11.5-14.5); Red Blood Cell (RBC) Count 2.94 mill/uL (4.70-6.10); White Blood Cell (WBC) Count 4.6 10x3/uL (4.8-10.8)
[2023-02-11 06:29] LABS: Delete Auto Diff?? YES
[2023-02-11 06:43] LABS: Anion Gap 13 mmol/L (10-20); BUN (Urea Nitrogen) 12 mg/dL (8.4-25.7); Calc. Creatinine Clearance 58 mL/min (70-130); Calcium 8.5 mg/dL (7.8-10.44); Carbon Dioxide 18 mmol/L (23-31); Chloride 105 mmol/L (98-107); Estimated GFR 79; Glucose 105 mg/dL (83-110); Potassium 2.7 mmol/L (3.5-5.1); Sodium 133 mmol/L (136-145)
[2023-02-11 06:57] LABS: Band 5 % (5-11); Lymphocytes 18 % (21-51); Macrocytosis SLIGHT = 6-15 cells HPF (0-5); Monocytes 45 % (0-10); Neutrophil 31 % (42-75); Ovalocytes SLIGHT = 2-5 cells HPF (0-1); Platelet Adequacy Comment Platelets Normal; Total Cell Count 102
[2023-02-11] MEDS ORDERED: Electrolyte Replacement Protocol FS PRN (07:00)
[2023-02-11 07:27] LABS: Magnesium 1.8 mg/dL (1.6-2.6)
[2023-02-11] MEDS ORDERED: Magnesium 2 GM/50 ML(in water) 2 GM in Premix Bag 1 BAG IVPB SCH (08:00)
[2023-02-11] MEDS ORDERED: Aspirin Chewable 81 MG TAB PO SCH (09:00)
[2023-02-11] MEDS: Potassium Chloride 20 MEQ TAB PO SCH ×2 (09:36→11:03)
[2023-02-11] MEDS: traMADol HCl 50 MG TAB PO PRN (11:04)
[2023-02-11 13:44] LABS: Anion Gap 11 mmol/L (10-20); BUN (Urea Nitrogen) 10 mg/dL (8.4-25.7); Calc. Creatinine Clearance 62 mL/min (70-130); Calcium 8.6 mg/dL (7.8-10.44); Carbon Dioxide 22 mmol/L (23-31); Chloride 104 mmol/L (98-107); Estimated GFR 86; Glucose 88 mg/dL (83-110); Magnesium 2.5 mg/dL (1.6-2.6); Potassium 3.3 mmol/L (3.5-5.1); Sodium 134 mmol/L (136-145)
[2023-02-11] MEDS ORDERED: Potassium Chloride 20 MEQ TAB PO SCH (14:00)
[2023-02-11 22:03] VITALS: BP 108/61
== END 2023-02-11 21:49 | disposition home or self-care (01) ==
LOC: ERS 08:36 → T4-B 12:40
PROVIDERS: ADMIT Internal Medicine; ATTEND Internal Medicine Critical Care Medicine
DX: N48.0 Leukoplakia of penis (principal); N47.1 Phimosis; N40.1 Benign prostatic hyperplasia with lower urinary tract symptoms; I13.0 Hypertensive heart and chronic kidney disease with heart failure and stage 1 through stage 4 chronic kidney disease, or unspecified chronic kidney disease; I50.9 Heart failure, unspecified; N18.30 Chronic kidney disease, stage 3 unspecified; I83.009 Varicose veins of unspecified lower extremity with ulcer of unspecified site; L97.909 Non-pressure chronic ulcer of unspecified part of unspecified lower leg with unspecified severity; R53.81 Other malaise; E87.1 Hypo-osmolality and hyponatremia; C45.7 Mesothelioma of other sites; Z79.82 Long term (current) use of aspirin; Z79.01 Long term (current) use of anticoagulants; Z79.899 Other long term (current) drug therapy; W19.XXXA Unspecified fall, initial encounter
CPT/HCPCS: 70450; 71045; 72125; 72193; 73502; 80048 ×2; 80053; 81001; 82550; 83605; 83735; 83880; 84484; 85025 ×2; 87077; 87086; 87186; 93005; 96372; 96374; 97530; 97535; 99285; G0378 ×3; 36415; J1650; J3475; Q9967

== ENCOUNTER 2023-02-14 22:57 | Inpatient (IN) | payer MEDICARE ==
[2023-02-14] MEDS ORDERED: cefTRIAXone (ROCEPHIN) 1 GM VIAL ONE (23:44)
[2023-02-15 00:01] LABS: #Monocytes 2.6 thou/uL (0.11-0.59); %Basophils 0.1 % (0.0-1.0); %Eosinophils 0.1 % (0.0-10.0); %Lymphocytes 13.3 % (21.0-51.0); %Monocytes 19.2 % (0.0-10.0); %Neutrophils 65.8 % (42.0-75.0); Hematocrit 29.7 % (42.0-52.0); Hemoglobin 9.6 g/dL (14.0-18.0); Mean Corpuscular HGB CONC 32.3 g/dL (32.0-36.0); Mean Corpuscular Hemoglobin 33.7 pg (27.0-31.0); Mean Corpuscular Volume 104.2 fl (78.0-98.0); Mean Platelet Volume 11.9 fL (7.4-10.4); Platelet Count 150 10x3/uL (130-400); RBC Distribution Width 14.1 % (11.5-14.5); Red Blood Cell (RBC) Count 2.85 mill/uL (4.70-6.10); White Blood Cell (WBC) Count 13.7 10x3/uL (4.8-10.8)
[2023-02-15 00:20] LABS: Actual Bicarbonate (HCO3v) 19.7 mEq/L (22-28); Base Excess -4.1 mEq/L (-2.0 to +3.0); Calcium, Ionized (venous) 1.06 mmol/L (1.16-1.32); Chloride (VBG) 102 mmol/L (98-106); Hematocrit-VBG 34 % (42.0-52.0); Hemoglobin (Hb) 11.4 g/dL (12.6-17.4); Sodium 130.7 mmol/L (133-146); pH (venous) 7.409 (7.32-7.43)
[2023-02-15 00:55] LABS: ALT (SGPT) Less than 7 U/L (8-55); AST (SGOT) 12 U/L (5-34); Albumin 2.9 g/dL (3.4-4.8); Alkaline Phosphatase 91 U/L (40-110); Anion Gap 15 mmol/L (10-20); BUN (Urea Nitrogen) 15 mg/dL (8.4-25.7); Bilirubin, Total 1.1 mg/dL (0.2-1.2); Calc. Creatinine Clearance 0 mL/min (70-130); Calcium 8.4 mg/dL (7.8-10.44); Carbon Dioxide 18 mmol/L (23-31); Chloride 102 mmol/L (98-107); Estimated GFR 59; Globulin 5.8 g/dL (2.4-3.5); Glucose 105 mg/dL (83-110); Protein, Total 8.7 g/dL (5.8-8.1); Sodium 131 mmol/L (136-145)
[2023-02-15] MEDS ORDERED: Piperacillin/Tazobactam 4.5 GM in Sodium Chloride 0.9% 100 ML IVPB SCH (04:30)
[2023-02-15] MEDS ORDERED: Vancomycin 1.5 GRAM/300 ML BAG 1.5 GM in Premix Bag 1 BAG IVPB SCH (04:45)
[2023-02-15 05:02] LABS: Hematocrit 27.4 % (42.0-52.0); Hemoglobin 8.9 g/dL (14.0-18.0); Manual Diff?? YES; Mean Corpuscular HGB CONC 32.5 g/dL (32.0-36.0); Mean Corpuscular Hemoglobin 33.7 pg (27.0-31.0); Mean Corpuscular Volume 103.8 fl (78.0-98.0); Mean Platelet Volume 11.6 fL (7.4-10.4); Platelet Count 133 10x3/uL (130-400); RBC Distribution Width 13.9 % (11.5-14.5); Red Blood Cell (RBC) Count 2.64 mill/uL (4.70-6.10); White Blood Cell (WBC) Count 11.1 10x3/uL (4.8-10.8)
[2023-02-15 05:07] LABS: Delete Auto Diff?? YES
[2023-02-15 05:17] LABS: Lactic Acid 1.2 mmol/L (0.5-2.2)
[2023-02-15 05:21] LABS: Anion Gap 12 mmol/L (10-20); BUN (Urea Nitrogen) 14 mg/dL (8.4-25.7); Calc. Creatinine Clearance 54 mL/min (70-130); Calcium 8.4 mg/dL (7.8-10.44); Carbon Dioxide 19 mmol/L (23-31); Chloride 105 mmol/L (98-107); Estimated GFR 67; Glucose 95 mg/dL (83-110); Potassium 3.3 mmol/L (3.5-5.1); Sodium 133 mmol/L (136-145)
[2023-02-15] MEDS: Sodium Chloride 0.9% 1,000 ML IV SCH ×3 (05:36→23:26)
[2023-02-15] MEDS ORDERED: Morphine 4 MG/ML VIAL SLOW IVP PRN (05:53)
[2023-02-15 06:33] LABS: Anisocytosis SLIGHT = 6-15 cells HPF (0-5); Band 12 % (5-11); Lymphocytes 5 % (21-51); Macrocytosis SLIGHT = 6-15 cells HPF (0-5); Monocytes 18 % (0-10); Neutrophil 65 % (42-75); Ovalocytes SLIGHT = 2-5 cells HPF (0-1); Platelet Adequacy Comment Platelets Normal; Reactive Lymphocytes 1 % (0-10); Total Cell Count 102
[2023-02-15] MEDS ORDERED: Piperacillin/Tazobactam 3.375 GM in Sodium Chloride 0.9% 100 ML IVPB SCH (07:00)
[2023-02-15] MEDS ORDERED: Ondansetron ODT 4 MG TAB PO PRN (08:07)
[2023-02-15] MEDS ORDERED: Acetaminophen 325 MG TAB PO PRN (08:07)
[2023-02-15] MEDS ORDERED: Ondansetron PF 4 MG/2 ML Vial IVP PRN (08:07)
[2023-02-15] MEDS ORDERED: Senokot S 8.6-50 MG TAB PO PRN (08:07)
[2023-02-15] MEDS ORDERED: Potassium Chloride 20 MEQ TAB PO SCH (08:15)
[2023-02-15] MEDS ORDERED: Electrolyte Replacement Protocol 1 EACH FS SCH (08:15)
[2023-02-15] MEDS ORDERED: Iopamidol-370 76% 500 ML MDV (1 ML CHARGE) ONE (09:30)
[2023-02-15] MEDS ORDERED: Potassium Chloride 40 MEQ in Premix Bag 1 BAG IVPB SCH (10:00)
[2023-02-15] MEDS: Potassium Chloride 20 MEQ in Premix Bag 1 BAG IVPB SCH ×2 (10:19→23:24)
[2023-02-15] MEDS: Nystatin Powder 15 GM BOT TOP PRN ×2 (11:43→16:15)
[2023-02-15] MEDS ORDERED: Electrolyte Replacement Protocol FS PRN (14:45)
[2023-02-15] MEDS: Piperacillin/Tazobactam 3.375 GM in Sodium Chloride 0.9% 100 ML IVPB SCH ×2 (15:00→23:27)
[2023-02-15] MEDS ORDERED: fentaNYL PF 100 MCG/2 ML SYRINGE ONE (18:01)
[2023-02-15] MEDS ORDERED: Ketamine 50 MG/ML (10ML VIAL) ONE (18:10)
[2023-02-15] MEDS ORDERED: Glycopyrrolate 0.2 MG/ML 5 ML SYRINGE ONE (19:08)
[2023-02-15] MEDS ORDERED: PROPOFOL 200 MG/20 ML VIAL ONE (19:08)
[2023-02-15] MEDS ORDERED: Lidocaine 1% PF 5 ML VIAL ONE (19:08)
[2023-02-15] MEDS ORDERED: Rocuronium Bromide 10 MG/ML (10ML VIAL) ONE (19:08)
[2023-02-15] MEDS ORDERED: NEOSTIGMINE 3 MG/3 ML SYR 3 MG/3 ML SYRINGE ONE (19:08)
[2023-02-15] MEDS ORDERED: Esmolol 100 MG/10 ML VIAL ONE (19:08)
[2023-02-15] MEDS ORDERED: Ondansetron PF 4 MG/2 ML Vial ONE (19:08)
[2023-02-15] MEDS ORDERED: PHENYLEPHRINE-NS 100 MCG/ML 10 ML SYRINGE ONE (19:08)
[2023-02-15] MEDS ORDERED: Dexamethasone 20 MG/5 ML VIAL ONE (19:08)
[2023-02-16] MEDS: HYDROcodone/Acetaminophen 5/325 mg Tablet PO PRN (03:40)
[2023-02-16] MEDS: Piperacillin/Tazobactam 3.375 GM in Sodium Chloride 0.9% 100 ML IVPB SCH ×3 (03:41→20:24)
[2023-02-16 05:36] LABS: #Monocytes 0.5 thou/uL (0.11-0.59); #Neutrophils 7.3 thou/uL (1.40-6.50); %Basophils 0.3 % (0.0-1.0); %Lymphocytes 10.7 % (21.0-51.0); %Monocytes 5.9 % (0.0-10.0); %Neutrophils 79.9 % (42.0-75.0); Hematocrit 31.3 % (42.0-52.0); Hemoglobin 9.2 g/dL (14.0-18.0); Mean Corpuscular HGB CONC 29.4 g/dL (32.0-36.0); Mean Corpuscular Hemoglobin 33.1 pg (27.0-31.0); Mean Corpuscular Volume 112.6 fl (78.0-98.0); Platelet Count 145 10x3/uL (130-400); RBC Distribution Width 14.2 % (11.5-14.5); Red Blood Cell (RBC) Count 2.78 mill/uL (4.70-6.10); White Blood Cell (WBC) Count 9.1 10x3/uL (4.8-10.8)
[2023-02-16 05:40] LABS: Anion Gap 15 mmol/L (10-20); BUN (Urea Nitrogen) 14 mg/dL (8.4-25.7); Calc. Creatinine Clearance 55 mL/min (70-130); Calcium 8.6 mg/dL (7.8-10.44); Carbon Dioxide 12 mmol/L (23-31); Chloride 113 mmol/L (98-107); Estimated GFR 69; Glucose 143 mg/dL (83-110); Potassium 4.6 mmol/L (3.5-5.1); Sodium 135 mmol/L (136-145)
[2023-02-16 06:12] LABS: Burr Cells SLIGHT = 2-5 cells HPF (0-1); CellaVision Operator ID lab.abc; Macrocytosis SLIGHT = 6-15 cells HPF (0-5); Platelet Adequacy Comment Platelets Normal; Smudge Cells 6.8 %
[2023-02-16] MEDS: VANCOMYCIN 1.25 GM/250 ML BAG 1.25 GM in Premix Bag 1 BAG IVPB SCH (06:36)
[2023-02-16] MEDS: Sodium Chloride 0.9% 1,000 ML IV SCH (06:40)
[2023-02-16 12:35] VITALS: BMI 24.3
[2023-02-17] MEDS: HYDROcodone/Acetaminophen 5/325 mg Tablet PO PRN ×3 (00:06→17:29)
[2023-02-17 05:13] LABS: Vancomycin, Trough 18.1 ug/mL
[2023-02-17] MEDS: VANCOMYCIN 1.25 GM/250 ML BAG 1.25 GM in Premix Bag 1 BAG IVPB SCH (05:58)
[2023-02-17] MEDS: Piperacillin/Tazobactam 3.375 GM in Sodium Chloride 0.9% 100 ML IVPB SCH ×2 (09:25→17:25)
[2023-02-17] MEDS: Gabapentin 300 MG CAP PO SCH (09:25)
[2023-02-18] MEDS: Gabapentin 300 MG CAP PO SCH ×3 (00:19→21:01)
[2023-02-18] MEDS: Piperacillin/Tazobactam 3.375 GM in Sodium Chloride 0.9% 100 ML IVPB SCH ×3 (00:20→17:12)
[2023-02-18] MEDS: HYDROcodone/Acetaminophen 5/325 mg Tablet PO PRN ×2 (02:17→17:14)
[2023-02-18] MEDS: VANCOMYCIN 1.25 GM/250 ML BAG 1.25 GM in Premix Bag 1 BAG IVPB SCH (04:54)
[2023-02-18 06:05] LABS: Hematocrit 22.6 % (42.0-52.0); Hemoglobin 6.7 g/dL (14.0-18.0); Manual Diff?? YES; Mean Corpuscular HGB CONC 29.6 g/dL (32.0-36.0); Mean Corpuscular Hemoglobin 33.7 pg (27.0-31.0); Mean Corpuscular Volume 113.6 fl (78.0-98.0); Mean Platelet Volume 11.5 fL (7.4-10.4); Platelet Count 128 10x3/uL (130-400); RBC Distribution Width 14.3 % (11.5-14.5); Red Blood Cell (RBC) Count 1.99 mill/uL (4.70-6.10); White Blood Cell (WBC) Count 5.9 10x3/uL (4.8-10.8)
[2023-02-18 06:07] LABS: Delete Auto Diff?? YES
[2023-02-18 06:34] LABS: Band 5 % (5-11); Burr Cells SLIGHT = 2-5 cells HPF (0-1); CellaVision Operator ID lab.abc; Large Platelets 1.9 % (0-5); Lymphocytes 32 % (21-51); Macrocytosis SLIGHT = 6-15 cells HPF (0-5); Monocytes 13 % (0-10); Myelocyte 7 % (0-0); Neutrophil 43 % (42-75); Platelet Adequacy Comment Platelets Normal; Poikilocytosis SLIGHT = 6-15 cells HPF (0-5); Polychromasia SLIGHT = 2-3 cells HPF (0-2); Smudge Cells 13.1 %; Total Cell Count 107
[2023-02-18 06:44] LABS: Anion Gap 9 mmol/L (10-20); BUN (Urea Nitrogen) 11 mg/dL (8.4-25.7); Calc. Creatinine Clearance 58 mL/min (70-130); Calcium 8.3 mg/dL (7.8-10.44); Carbon Dioxide 19 mmol/L (23-31); Chloride 112 mmol/L (98-107); Estimated GFR 74; Glucose 75 mg/dL (83-110); Potassium 3.7 mmol/L (3.5-5.1); Sodium 136 mmol/L (136-145)
[2023-02-18 07:54] LABS: Hematocrit 20.9 % (42.0-52.0); Hemoglobin 6.4 g/dL (14.0-18.0); Platelet Count 145 10x3/uL (130-400)
[2023-02-19] MEDS: Piperacillin/Tazobactam 3.375 GM in Sodium Chloride 0.9% 100 ML IVPB SCH ×2 (00:30→08:51)
[2023-02-19] MEDS: VANCOMYCIN 1.25 GM/250 ML BAG 1.25 GM in Premix Bag 1 BAG IVPB SCH (05:40)
[2023-02-19 06:26] LABS: Hematocrit 23.4 % (42.0-52.0); Hemoglobin 7.4 g/dL (14.0-18.0); Manual Diff?? YES; Mean Corpuscular HGB CONC 31.6 g/dL (32.0-36.0); Mean Corpuscular Hemoglobin 32.6 pg (27.0-31.0); Mean Platelet Volume 11.1 fL (7.4-10.4); Platelet Count 141 10x3/uL (130-400); RBC Distribution Width 18.9 % (11.5-14.5); Red Blood Cell (RBC) Count 2.27 mill/uL (4.70-6.10); White Blood Cell (WBC) Count 4.3 10x3/uL (4.8-10.8)
[2023-02-19 06:36] LABS: Delete Auto Diff?? YES; Mean Corpuscular Volume 103.1 fl (78.0-98.0)
[2023-02-19 07:01] LABS: Anion Gap 9 mmol/L (10-20); BUN (Urea Nitrogen) 9 mg/dL (8.4-25.7); Calc. Creatinine Clearance 66 mL/min (70-130); Calcium 7.9 mg/dL (7.8-10.44); Carbon Dioxide 19 mmol/L (23-31); Chloride 111 mmol/L (98-107); Estimated GFR 86; Glucose 73 mg/dL (83-110); Potassium 3.3 mmol/L (3.5-5.1); Sodium 136 mmol/L (136-145)
[2023-02-19] MEDS ORDERED: Potassium Chloride 20 MEQ TAB PO SCH (07:45)
[2023-02-19 08:19] LABS: Band 7 % (5-11); Eosinophils 2 % (0-10); Myelocyte 5 % (0-0)
[2023-02-19 08:20] LABS: Lymphocytes 36 % (21-51); Monocytes 28 % (0-10); Neutrophil 20 % (42-75)
[2023-02-19 08:21] LABS: Platelet Adequacy Comment Platelets Normal; Polychromasia SLIGHT = 2-3 cells (100X) (0-2/hpf)
[2023-02-19] MEDS: Gabapentin 300 MG CAP PO SCH (08:52)
[2023-02-19] MEDS: HYDROcodone/Acetaminophen 5/325 mg Tablet PO PRN (08:53)
[2023-02-19 11:57] VITALS: BP 119/67; TEMP 97.8
[2023-02-19 12:36] LABS: Hematocrit 26.4 % (42.0-52.0); Hemoglobin 8.5 g/dL (14.0-18.0); Platelet Count 135 10x3/uL (130-400)
[2023-02-19 12:46] LABS: Potassium 3.8 mmol/L (3.5-5.1)
== END 2023-02-19 14:35 | DRG 728 ==
LOC: ERS 22:57 → SURG B 02-15 03:07
PROVIDERS: ADMIT Student in an Organized Health Care Education/Training Program; ATTEND Family Medicine
PROC: 0VTTXZZ Resection of Prepuce, External Approach (ICD-10-PCS; principal; 2023-02-15)
PROC: 0T9B30Z Drainage of Bladder with Drainage Device, Percutaneous Approach (ICD-10-PCS; 2023-02-15)
PROC: 0T9B70Z Drainage of Bladder with Drainage Device, Via Natural or Artificial Opening (ICD-10-PCS; 2023-02-15)
PROC: 30233N1 Transfusion of Nonautologous Red Blood Cells into Peripheral Vein, Percutaneous Approach (ICD-10-PCS; 2023-02-18)
DX: N49.2 Inflammatory disorders of scrotum (principal); C34.90 Malignant neoplasm of unspecified part of unspecified bronchus or lung; G93.40 Encephalopathy, unspecified; N13.6 Pyonephrosis; D62 Acute posthemorrhagic anemia; N18.30 Chronic kidney disease, stage 3 unspecified; N40.0 Benign prostatic hyperplasia without lower urinary tract symptoms; N47.1 Phimosis; R53.81 Other malaise; G62.9 Polyneuropathy, unspecified; K80.20 Calculus of gallbladder without cholecystitis without obstruction; R31.0 Gross hematuria; N48.0 Leukoplakia of penis; E87.6 Hypokalemia; Z99.3 Dependence on wheelchair; Z79.82 Long term (current) use of aspirin; Z86.73 Personal history of transient ischemic attack (TIA), and cerebral infarction without residual deficits; I25.2 Old myocardial infarction
CPT/HCPCS: 36415; 36430; 71045; 74177; 80048; 80053; 80202; 82805; 83605; 85025; 85060; 86850; 86900; 86901; 87040; 87077; 87086; 87149; 93005; 96365; 96366; C1747; C2627; J0696; J1100; J2405; J2543; J2704; J3370; J3480; J3490; J7050; P9040; Q9967